=== PATIENT | female | born 1980 | race Caucasian/White ===

== ENCOUNTER 2019-07-10 19:00 | Emergency (ER) | payer OTHER, SELFPAY ==
[2019-07-10 19:16] VITALS: BP 192/111; PULSE 115; RESP 18; TEMP 36.8; O2SAT 96; BMI 37.4
[2019-07-10 19:29] LABS: Basophils # 0.1 10^3/uL (0.0-0.1); Basophils % 0.4 %; Eosinophils # 0.1 10^3/uL (0.0-0.8); Eosinophils % 0.8 %; Hematocrit 40.6 % (37.0-47.0); Hemoglobin 13.3 g/dL (11.5-15.3); Lymphocytes # 2.1 10^3/uL (0.8-4.8); Lymphocytes % 12.7 %; Mean Corpuscular HGB Conc 32.8 g/dL (30.0-36.0); Mean Corpuscular Hemoglobin 27.6 pg (28.0-34.0); Mean Corpuscular Volume 84.2 fL (81-99); Mean Platelet Volume 8.4 fL (7.4-10.4); Monocytes # 0.7 10^3/uL (0.2-0.9); Monocytes % 4.1 %; Neutrophils # 13.1 10^3/uL (1.8-7.7); Neutrophils % 81.4 %; Nucleated Red Blood Cells % 0 %; Platelet Count 304 10^3/cmm (130-400); Red Blood Count 4.82 10^6/uL (4.1-5.3); Red Cell Distribution Width 13.2 % (12.1-15.1); White Blood Count 16.1 10^3/uL (4.0-10.0)
[2019-07-10 19:42] LABS: Alanine Aminotransferase 16 U/L (0-33); Albumin Level 4.4 g/dL (3.5-5.2); Alkaline Phosphatase 105 IU/L (35-105); Anion Gap 21.2 (5-19); Aspartate Amino Transferase 18 U/L (0-32); Blood Urea Nitrogen 11 mg/dL (6-20); Carbon Dioxide 24 mmol/L (22-29); Chloride 95 mmol/L (98-107); Globulin 3.6 g/dL (1.3-4.6); Glomerular Filtration Rate 62.7 mL/min (90-130); Glucose 249 mg/dL (74-109); Potassium 4.2 mmol/L (3.5-5.1); Sodium 136 mmol/L (136-145); Total Bilirubin 0.3 mg/dL (0.15-1.2)
--- NOTE | 2019-07-10 19:58 | ED_ITS ---
HPI - Female Genitourinary General: Chief complaint: Urogenital-Female Stated complaint: kidney pain Time Seen by Provider: 07/10/19 19:50 History of Present Illness: HPI Narrative: Patient complains about right-sided flank pain last couple days has symptoms consistent with an urinary tract infection. Has had a fever nausea vomiting today. Has been taking cranberry pills. MD elicited complaint: dysuria and UTI Pertinent past history: recurrent UTIs Onset (ago): day(s) (2) Female Urogenital Radiation: R Flank Severity scale (1-10): 8 Urinary symptoms: Foul Smelling Urine Exacerbating factors: none Associated symptoms: Reports fevers/chills and nausea; Deny headache(s) Date of Last Menstrual Period: 06/17/19 Review of Systems Const: Denies: fever, chills or body aches Eyes: Denies: change in vision or blurry vision ENMT: Denies: throat pain or nasal congestion Card: Denies: chest pain or shortness of breath on exertion Resp: Denies: shortness of breath, productive cough or non-productive cough GI: Reports: nausea and vomiting : Reports: urinary frequency and urinary urgency Musc: Denies: extremity pain Skin/Breast: Denies: rash Neuro: Denies: headache Psych: Denies: anxiety or depression Beni/Lymph: Denies: easy bruising PFSH ED PFSH: Statuses (acute, chronic, etc) shown below reflect problem list status as previously entered and may not be historically accurate Medical History (Updated 07/10/19 @ 22:06 by FRANCIS Browne) Diabetes mellitus without complication, without long-term current use of insulin (Acute) Gastroesophageal reflux (Acute) Menstrual migraine (Acute) Obesity (Acute) Polycystic ovarian syndrome (Acute) Surgical History (Updated 07/10/19 @ 21:31 by Bay Cartwright MD) History of cholecystectomy (Acute ~03/1999) Laparoscopic. Performed at [facility] in [place], [place] History of dilation and curettage (Acute 12/25/15) Missed at 11-6/7 weeks gestation. D&C with suction performed. Performed by Dr. Bay Cartwright at [facility] in [place], [place]. History of dilation and curettage (Acute 11/26/16) D&C with suction. Miscarriage. Performed by Dr. Bay Cartwright at [facility] in [place], [place]. Hx of dilation and curettage (Acute ~03/24/19) Treatment of Missed . Performed by Dr. Bay Cartwright at [facility] in [place], [place]. Family History (Updated 07/10/19 @ 21:34 by Bay Cartwright MD) Mother Hypertension Grandmother Heart disease Maternal Diabetes Maternal Family/Other Breast cancer Maternal great aunt Diabetes Maternal great-grandmother Family/Other No problems noted. Social History Smoking and tobacco status: never smoked Alcohol intake: never Additional social history: Well balanced diet Female Reproductive History: Date of last menstrual period: 06/17/19 Physical Exam Const: COMMON NORMALS: no apparent distress, average body habitus and oriented x3 HENMT: COMMON NORMALS: normocephalic HEAD & SCALP: normal to inspection and normocephalic FACE & SINUS: normal facial exam Eye: COMMON NORMALS: conjunctivae normal GENERAL EYE: normal appearance of both eyes CONJUNCTIVA: Yes conjunctivae normal Neck/C-Spine: COMMON NORMALS: no JVD Chest: COMMONS NORMALS: inspection of chest normal Resp: COMMON NORMALS: normal respiratory effort and clear to auscultation bilaterally AUSCULTATION: clear to auscultation bilaterally Cardio: COMMON NORMALS: no JVD, regular rate and regular rhythm RATE: regular rate RHYTHM: regular rhythm GI: COMMON NORMALS: normal to inspection, nondistended, normoactive bowel sounds : BLADDER/KIDNEY EXAM: Yes CVA tenderness Back/Pelvis: GENERAL BACK: Yes CVA tenderness CVA tenderness: right Extremity: COMMON NORMALS: normal to inspection and full ROM Neuro: COMMON NORMALS: oriented x3 Course Vital Signs: Vital signs: Vital Signs Temperature 98.2 F 07/10/19 19:16 Pulse Rate 115 H 07/10/19 19:16 Respiratory Rate 18 07/10/19 19:16 Blood Pressure 192/111 07/10/19 19:16 Pulse Oximetry 96 07/10/19 19:16 MDM - Female MDM Narrative: Medical decision making narrative: Patient chooses to go home. Is able to keep fluids down presently. Is aware that if it gets worse or she not able keep fluids down that she is to return here Lab Data: Labs: Lab Results 07/10/19 07/10/19 07/10/19 Range/Units 19:25 19:25 21:32 WBC 16.1 H (4.0-10.0) 10^3/ uL RBC 4.82 (4.1-5.3) 10^6/u L Hgb 13.3 (11.5-15.3) g/dL Hct 40.6 (37.0-47.0) % MCV 84.2 (81-99) fL MCH 27.6 L (28.0-34.0) pg MCHC 32.8 (30.0-36.0) g/dL RDW 13.2 (12.1-15.1) % Plt Count 304 (130-400) 10^3/c mm MPV 8.4 (7.4-10.4) fL Neut % (Auto) 81.4 % Lymph % (Auto) 12.7 % [place]wood % (Auto) 4.1 % Eos % (Auto) 0.8 % Baso % (Auto) 0.4 % Neut # (Auto) 13.1 H (1.8-7.7) 10^3/u L Lymph # (Auto) 2.1 (0.8-4.8) 10^3/u L [place]wood # (Auto) 0.7 (0.2-0.9) 10^3/u L Eos # (Auto) 0.1 (0.0-0.8) 10^3/u L Baso # (Auto) 0.1 (0.0-0.1) 10^3/u L Nucleated RBC % (a uto) 0 % Nucleated RBCs # 0.0 /100WBC Sodium 136 (136-145) mmol/L Potassium 4.2 (3.5-5.1) mmol/L Chloride 95 L (98-107) mmol/L Carbon Dioxide 24 (22-29) mmol/L Anion Gap 21.2 H (5-19) BUN 11 (6-20) mg/dL Creatinine 1.0 H (0.5-0.9) mg/dL GFR Calculation 62.7 L (90-130) mL/min Glucose 249 H (74-109) mg/dL Calcium 10.0 (8.5-10.5) mg/dL Total Bilirubin 0.3 (0.15-1.2) mg/dL AST 18 (0-32) U/L ALT 16 (0-33) U/L Alkaline Phosphata se 105 (35-105) IU/L Total Protein 8.0 (6.6-8.7) g/dL Albumin 4.4 (3.5-5.2) g/dL Globulin 3.6 (1.3-4.6) g/dL HCG, Qual Negative (Negative) Urine Color (Yellow) Urine Appearance (CLEAR) Urine pH (5-7) Ur Specific Gravit y (1.005-1.030) Urine Protein (Negative) Urine Glucose (UA) (Normal) Urine Ketones (Negative) Urine Occult Blood (Negative) Urine Nitrate (Negative) Urine Bilirubin (NEGATIVE) Urine Urobilinogen (Negative) mg/dL Ur Leukocyte Cheryl ase (Negative) Urine RBC (0-2) /hpf Urine WBC (0-5) /hpf Ur Squamous Epith Cells (0-5) Urine Bacteria (NONE) Urine Mucus 07/10/19 Range/Units 21:32 WBC (4.0-10.0) 10^3/ uL RBC (4.1-5.3) 10^6/u L Hgb (11.5-15.3) g/dL Hct (37.0-47.0) % MCV (81-99) fL MCH (28.0-34.0) pg MCHC (30.0-36.0) g/dL RDW (12.1-15.1) % Plt Count (130-400) 10^3/c mm MPV (7.4-10.4) fL Neut % (Auto) % Lymph % (Auto) % Haywood % (Auto) % Eos % (Auto) % Baso % (Auto) % Neut # (Auto) (1.8-7.7) 10^3/u L Lymph # (Auto) (0.8-4.8) 10^3/u L Haywood # (Auto) (0.2-0.9) 10^3/u L Eos # (Auto) (0.0-0.8) 10^3/u L Baso # (Auto) (0.0-0.1) 10^3/u L Nucleated RBC % (a uto) % Nucleated RBCs # /100WBC Sodium (136-145) mmol/L Potassium (3.5-5.1) mmol/L Chloride (98-107) mmol/L Carbon Dioxide (22-29) mmol/L Anion Gap (5-19) BUN (6-20) mg/dL Creatinine (0.5-0.9) mg/dL GFR Calculation (90-130) mL/min Glucose (74-109) mg/dL Calcium (8.5-10.5) mg/dL Total Bilirubin (0.15-1.2) mg/dL AST (0-32) U/L ALT (0-33) U/L Alkaline Phosphata se (35-105) IU/L Total Protein (6.6-8.7) g/dL Albumin (3.5-5.2) g/dL Globulin (1.3-4.6) g/dL HCG, Qual (Negative) Urine Color [place] (Yellow) Urine Appearance Cloudy (CLEAR) Urine pH 5 (5-7) Ur Specific Gravit y 1.025 (1.005-1.030) Urine Protein 3+ H (Negative) Urine Glucose (UA) Norm (Normal) Urine Ketones 1+ H (Negative) Urine Occult Blood 3+ H (Negative) Urine Nitrate Positive H (Negative) Urine Bilirubin 2+ H (NEGATIVE) Urine Urobilinogen 4 H (Negative) mg/dL Ur Leukocyte Cheryl ase Trace H (Negative) Urine RBC 80-100 H (0-2) /hpf Urine WBC >100 H (0-5) /hpf Ur Squamous Epith Cells 5-10 H (0-5) Urine Bacteria 4+ H (NONE) Urine Mucus 2+ Discharge Plan Discharge Patient Disposition: Home, Self-Care Clinical Impression: Pyelonephritis Condition: Stable Prescriptions: New Levaquin 500 mg tablet 500 mg PO DAILY 7 Days RF: 0 Zofran 4 mg tablet 4 mg PO TID PRN (Reason: nausea and vomiting) 4 Days Qty: 14 RF: 0 No Action bupropion HCl [Wellbutrin SR] 150 mg tablet sustained-release 12 hr 150 mg PO BID RF: 0 hydroxyzine HCl 50 mg tablet 50 mg PO TID RF: 0 norgestimate-ethinyl estradiol [Sprintec (28)] 0.25-35 mg-mcg tablet 1 tab PO QDAY Qty: 84 RF: 4 metformin 1,000 mg tablet 1,000 mg PO BID RF: 0 ranitidine HCl 150 mg capsule 150 mg PO BID PRNRF: 0 glipizide 10 mg tablet 20 mg PO BID RF: 0 Victoza 2-Tulio 0.6 mg/0.1 mL (18 mg/3 mL) pen injector 1.2 mg SUBCUT Q24H RF: 0 Discharge Orders: Discharge Order (Routine); Ordered 07/10/19 Ordered By: Anirudh Raymond Referrals: Vivienne Araujo FNP [Family Provider] - Asim Cosme APN [Primary Care Provider] - Discharge Diet: Usual diet Discharge Activity: Increase activity as tolerated Patient Instructions: Acute Pyelonephritis (ED) Activity Restrictions/Additional Instructions: Follow-up with medical provider as directed. Take medications as prescribed. Return to the ER or your medical provider if condition worsens. Please read and understand discharge instructions. If any questions ask please. Drink plenty of fluids. If condition worsens return here follow-up with FRANCIS Huffman Coding Level of Care Code ED Scrubber Operator for Tere Fwd Exam Problem Focused
[2019-07-10] MEDS: lactated ringers 1,000 ML 999 ML IV (21:10)
[2019-07-10] MEDS: ondansetron 2 mg/ML SDV 2 mL 8 MG IVP (21:11)
[2019-07-10] MEDS: ketorolac 30 mg/mL INJ IVP (21:11)
[2019-07-10] MEDS: levoFLOXacin 500 mg Tablet PO (21:22)
[2019-07-10 21:53] LABS: Add Urine Culture? Yes; Bacteria Urine 4+; Bilirubin Urine 2+ (NEGATIVE); Blood Urine 3+ (Negative); Glucose Urine UA Norm (Normal); HCG Qualitative Urine. Negative (Negative); Ketones Urine 1+ (Negative); Leukocyte Esterase Urine Trace (Negative); Mucus Urine 2+; Nitrate Urine Positive (Negative); Protein Urine 3+ (Negative); RBC Urine 80-100 /hpf (0-2); Specific Gravity, Urine 1.025 (1.005-1.030); Urine Appearance Cloudy (CLEAR); Urine Color Orange (Yellow); Urobilinogen Urine 4 mg/dL (Negative); WBC Urine >100 /hpf (0-5); pH Urine 5 (5-7)
[2019-07-10] MEDS: ondansetron 4 MG Tablet PO (22:35)
[2019-07-10 22:44] VITALS: BP 123/71; PULSE 76; RESP 16; TEMP 36.9; O2SAT 97
== END 2019-07-10 22:45 | disposition home or self-care (01) ==
PROVIDERS: Emergency Medicine; Emergency Provider Nurse Practitioner Family; Family Provider Registered Nurse; PCP Nurse Practitioner Family
DX: N12 Tubulo-interstitial nephritis, not specified as acute or chronic (principal); Z79.84 Long term (current) use of oral hypoglycemic drugs; E11.9 Type 2 diabetes mellitus without complications; K21.9 Gastro-esophageal reflux disease without esophagitis
CPT/HCPCS: 36415; 80053; 81001; 81025; 85025; 87077; 87086; 87186; 96374; 99281; J1885; J2405; Q0162

== ENCOUNTER → 2019-09-01 14:30 | Outpatient (BNVA) | payer OTHER, SELFPAY | PROVIDERS: Family Provider Registered Nurse; PCP Nurse Practitioner Family; Visit Provider Nurse Practitioner Family | DX: J02.0 Streptococcal pharyngitis (principal); B37.9 Candidiasis, unspecified | CPT/HCPCS: 87880 ==

== ENCOUNTER → 2019-09-05 08:50 | Outpatient (BNVA) | payer OTHER, SELFPAY | PROVIDERS: Family Provider Registered Nurse; PCP Nurse Practitioner Family; Visit Provider Obstetrics & Gynecology | DX: Z12.4 Encounter for screening for malignant neoplasm of cervix (principal) | CPT/HCPCS: 88175 ==

== ENCOUNTER → 2019-09-27 08:40 | Outpatient (BNVA) | payer OTHER, SELFPAY | PROVIDERS: Family Provider Registered Nurse; PCP Nurse Practitioner Family; Visit Provider Nurse Practitioner Family | DX: J02.9 Acute pharyngitis, unspecified (principal) | CPT/HCPCS: 87071; 87880 ==

== ENCOUNTER → 2020-04-12 09:13 | Outpatient (BNVA) | payer OTHER, SELFPAY | PROVIDERS: Family Provider Registered Nurse; PCP Nurse Practitioner Family; Visit Provider Registered Nurse | DX: Z11.59 Encounter for screening for other viral diseases (principal); J06.9 Acute upper respiratory infection, unspecified | CPT/HCPCS: 87635 ==

== ENCOUNTER → 2020-06-18 14:30 | Outpatient (BNVA) | payer OTHER, SELFPAY | PROVIDERS: Family Provider Registered Nurse; PCP Nurse Practitioner Family; Visit Provider Obstetrics & Gynecology | DX: O26.21 Pregnancy care for patient with recurrent pregnancy loss, first trimester; O24.111 Pre-existing type 2 diabetes mellitus, in pregnancy, first trimester | CPT/HCPCS: 81025; 83036; 84315; 84702; 86850; 86900 ==

== ENCOUNTER → 2020-06-21 16:14 | Outpatient (BNVA) | payer OTHER, MEDICAID, SELFPAY | PROVIDERS: Family Provider Registered Nurse; PCP Nurse Practitioner Family; Visit Provider Obstetrics & Gynecology | DX: O26.21 Pregnancy care for patient with recurrent pregnancy loss, first trimester (principal); O24.111 Pre-existing type 2 diabetes mellitus, in pregnancy, first trimester | CPT/HCPCS: 84315; 84702 ==

== ENCOUNTER → 2020-06-25 09:27 | Outpatient (BNVA) | payer OTHER, MEDICAID, SELFPAY | PROVIDERS: Family Provider Registered Nurse; PCP Nurse Practitioner Family; Visit Provider Obstetrics & Gynecology | DX: O26.21 Pregnancy care for patient with recurrent pregnancy loss, first trimester (principal) | CPT/HCPCS: 84315; 84702 ==

== ENCOUNTER → 2020-07-20 07:56 | Outpatient (BNVA) | payer OTHER, MEDICAID, SELFPAY | PROVIDERS: Family Provider Registered Nurse; PCP Nurse Practitioner Family; Visit Provider Obstetrics & Gynecology | DX: Z20.822 Contact with and (suspected) exposure to COVID-19 (principal); O24.111 Pre-existing type 2 diabetes mellitus, in pregnancy, first trimester; F41.8 Other specified anxiety disorders | CPT/HCPCS: 84315; 87635 ==

== ENCOUNTER 2020-07-23 11:07 | Day surgery (SDC) | payer OTHER, MEDICAID, SELFPAY ==
[2020-07-20 10:39] VITALS: BMI 39.1
--- NOTE | 2020-07-20 10:51 | P.ANESASSM_ITS ---
Pre-Anesthetic Assessment Pre-Anesthetic Assessment: Height/Weight: Height 1.7 m Weight 113.398 kg Preop Diagnosis: blighted ovum Proposed Procedure: Operation Date: 07/23/20 12:30 Proposed Procedures p Dilation And Curettage (D&C) 26829 O02.0(Not Applicable) - Bay Cartwright MD Familial anesthetic complications: PONV Social: Social History: No alcohol and No tobacco Exam: Pre-Anes Outpt Exam: alert, oriented x 3, clear to auscultation bilaterally and regular rate & rhythm Airway: Cervical ROM: WNL MP: 1 Dentition: Full GI: GI: GERD Metabolic: Metabolic: DM and Morbid obesity Neuropsych: Neuropsych: Anxiety Anesthetic Plan: ASA status: 2 Anesthesia: General Risk of > 500 ml blood loss (7ml/kg in children): No PFSH Anesthesia PFSH: Medical History (Updated 07/20/20 @ 09:41 by Bay Cartwright MD) Diabetes mellitus without complication, without long-term current use of insulin Gastroesophageal reflux Menstrual migraine Obesity Polycystic ovarian syndrome Surgical History History of cholecystectomy (~03/1999) Laparoscopic. Performed at [facility] in [place], [place] History of dilation and curettage (12/25/15) Missed at 11-6/7 weeks gestation. D&C with suction performed. Performed by Dr. Bay Cartwright at [facility] in [place], [place]. History of dilation and curettage (11/26/16) D&C with suction. Miscarriage. Performed by Dr. Bay Cartwright at [facility] in [place], [place]. Hx of dilation and curettage (~03/24/19) Treatment of Missed . Performed by Dr. Bay Cartwright at [facility] in [place], [place]. Family History Mother Hypertension Grandmother Heart disease Maternal Diabetes Maternal Family/Other Breast cancer Maternal great aunt Diabetes Maternal great-grandmother Family/Other No problems noted. Social History (Updated 07/14/20 @ 14:06 by Bay Cartwright MD) Smoking and tobacco status: never smoked Alcohol intake: never Female Reproductive History: Date of last menstrual period: 06/17/19 Data Anesthesia Cardiac Studies: No Data to Display
[2020-07-23] MEDS: sodium chloride 0.9% 1,000 ML 30 ML IV (11:45)
[2020-07-23 12:00] VITALS: BP 154/95; PULSE 96; RESP 18; TEMP 36.5; O2SAT 99
[2020-07-23 12:06] LABS: Glucose Point of Care 91 mg/dL (70-110)
--- NOTE | 2020-07-23 12:19 | P.ANESUD_ITS ---
Pre-Anesthetic Update Pre-Anesthetic Assessment: Date of Surgery/Procedure: 07/23/20 Preop Stephany gnosis: blighted ovum Proposed Procedure: Operation Date: 07/23/20 12:30 Proposed Procedures p Dilation And Curettage (D&C) 73918 O02.0(Not Applicable) - Bay Cartwright MD Any changes to Pre-Anesthetic Assessment?: No Labs Last 48hrs: Laboratory Results - last 48 hr 07/23/20 12:01 POC Glucose 91 Exam: Pre-Anes Outpt Exam: alert, oriented x 3, clear to auscultation bilaterally and regular rate & rhythm Cardiac Studies: No Data to Display
--- NOTE | 2020-07-23 12:22 | P.HPUD_ITS ---
Surgery/Procedure H&P Update DATE OF PROCEDURE: July 23, 2020 DATE H&P PERFORMED: 07/20/20 H&P UPDATE INFORMATION: I have reviewed H&P completed within last 30 days, I have examined patient prior to procedure, No changes to prior documentation and H&P is in [facility] EMR on date indicated PREOP DIAGNOSIS: blighted ovum PLANNED PROCEDURE: Operation Date: 07/23/20 12:30 Proposed Procedures p Dilation And Curettage (D&C) 49472 O02.0(Not Applicable) - Bay Cartwright MD
[2020-07-23] MEDS: scopolamine 1.5 Patch 1 PATCH TRANSDERMA (12:24)
--- NOTE | 2020-07-23 12:49 | PM.OP ---
Operative Report Date of procedure: July 23, 2020 Pre-op Diagnosis: blighted ovum at 8 weeks Post-op Diagnosis: Blighted Ovum at 8 weeks Procedure Done: Dilation and curettage with suction for treatment of blighted ovum, Paracervical block Pathology: Products of conception Surgeon: Bay Cartwright [employer] Consultant: None Anesthesia: MAC and Other (Paracervical block) Estimated blood loss (mL): 5 IV fluids (mL): 300 Complications: None Findings: Closed cervix. Difficult to palpate uterus due to body habitus Brief History: Patient is a 39-year-old female, 5, Para 0-0-4-0 with an LMP of 05/09/2020 and an EDC of 03/01/2021 based on a 5-week ultrasound, which places her at 8-3/7 weeks gestation. She has been followed since approximately 4 weeks gestation due to type 2 diabetes. She had had an ultrasound on 07/05/2020 which had shown a very small pole at 5-6/7 weeks gestation with a heart rate of 80 bpm. Due to the early gestational age, follow-up ultrasound was performed on 07/20/2020. Gestational sac had enlarged as expected, but pole was no longer able to be visualized. Based upon this she was diagnosed with a blighted ovum. Treatment options were discussed with her and she wished to proceed to a dilation and curettage with suction. Procedure: Patient was taken to the operating room where IV sedation was started. She was prepped and draped in the usual sterile fashion in the dorsal supine position with legs in Cirilo style stirrups. Sequential compression boots were placed prior to starting the case. Patient had voided just before coming to the operating room. Exam under anesthesia was performed. Cervix was noted to be closed. Uterus was difficult to palpate due to body habitus. Weighted speculum was placed in the vagina and the cervix was grasped with a single-tooth tenaculum. A paracervical block was performed using 12 mL of 2% lidocaine with epinephrine. The cervix was serially dilated until a size 8 suction curette could be passed. Suction curettage was performed until no further tissue was obtained. Sharp curettage was performed until there was a gritty texture throughout the endometrial cavity. Suction curettage was repeated until no further tissue was obtained. Tenaculum was removed and there was minimal bleeding from the tenaculum site. Patient tolerated the procedure well. Sponge and needle counts were correct. DRAINS: None POSTOPERATIVE STATUS: The patient was transferred to the recovery room in satisfactory condition. DISPOSITION: Discharge to home when criteria was met. FOLLOWUP APPOINTMENT: Followup appointment is scheduled in my office on 08/06/2020. MEDICATIONS: She was to resume her usual home medications. May use [id number] ibuprofen as needed for pain. Associated Problem List Diagnoses (1) Blighted ovum:
[2020-07-23 13:22] VITALS: BP 162/87; PULSE 98; RESP 18; O2SAT 100
[2020-07-23 14:48] VITALS: BP 158/82; PULSE 102; RESP 18; TEMP 36.8; O2SAT 99
--- NOTE | 2020-07-23 16:22 | ANE.PACU2 ---
Inpatient post-anesthesia follow up: Airway intact: Yes Vital signs: Temperature 98.2 F Pulse Rate 102 Respiratory Rate 18 Blood Pressure 158/82 Pulse Oximetry 99 Oxygen Delivery Me thod Room Air Oxygen Flow Rate Fraction of Inspir ed Oxygen Hydration adequate: Yes Nausea and vomiting: No Pain level: 1 Mental status: Baseline
== END 2020-07-23 13:39 | disposition home or self-care (01) ==
PROVIDERS: Family Provider Registered Nurse; PCP Nurse Practitioner Family; Visit Provider Obstetrics & Gynecology
PROC: (CPT 58120; principal; 2020-07-23 12:30)
DX: O02.0 Blighted ovum and nonhydatidiform mole (principal); K21.9 Gastro-esophageal reflux disease without esophagitis; E11.9 Type 2 diabetes mellitus without complications; E66.01 Morbid (severe) obesity due to excess calories; Z68.39 Body mass index [BMI] 39.0-39.9, adult; F41.9 Anxiety disorder, unspecified; E28.2 Polycystic ovarian syndrome; Z79.84 Long term (current) use of oral hypoglycemic drugs
CPT/HCPCS: 59820; 12345; 36415; 36416; 82962; 86850; 86900; 88305; 90384; J2704; J3010; J7030

== ENCOUNTER → 2020-09-26 12:20 | Outpatient (BNVA) | payer OTHER, MEDICAID, SELFPAY | PROVIDERS: Family Provider Registered Nurse; PCP Nurse Practitioner Family; Visit Provider Obstetrics & Gynecology | DX: Z30.2 Encounter for sterilization (principal) | CPT/HCPCS: 87635 ==

== ENCOUNTER 2020-10-02 07:21 | Day surgery (SDC) | payer OTHER, MEDICAID, SELFPAY ==
[2020-10-01 08:22] VITALS: BMI 34.4
--- NOTE | 2020-10-01 09:29 | P.ANESASSM_ITS ---
Pre-Anesthetic Assessment Pre-Anesthetic Assessment: Height/Weight: Height 1.7 m Weight 99.79 kg Preop Diagnosis: blighted ovum at 8 weeks Proposed Procedure: Operation Date: 10/02/20 09:00 Proposed Procedures p Lap Fulg,Removal of Tubes Sterilization 37236 Z30.2(Not Applicable) - Bay Cartwright MD Was Beta Henry taken within 24 hours: N/A Was Clonidine taken within 24 hours: N/A Social: Social History: No alcohol and No tobacco Exam: Pre-Anes Outpt Exam: alert, oriented x 3, clear to auscultation bilaterally and regular rate & rhythm Airway: Submandibular: WNL Cervical ROM: WNL MP: 2 Dentition: Full GI: GI: GERD Metabolic: Metabolic: DM and Morbid obesity Neuropsych: Neuropsych: Anxiety and Depression Anesthetic Plan: ASA status: 2 Anesthesia: General Risk of > 500 ml blood loss (7ml/kg in children): No PFSH Anesthesia PFSH: Medical History Diabetes mellitus without complication, without long-term current use of insulin Gastroesophageal reflux Menstrual migraine Obesity Polycystic ovarian syndrome Surgical History History of cholecystectomy (~03/1999) Laparoscopic. Performed at [facility] in [place], [place] History of dilation and curettage (12/25/15) Treatment of missed . D&C with suction performed. Performed by Dr. Cartwright at [facility] in [place], [place]. History of dilation and curettage (11/26/16) Treatment of miscarriage. Performed by Dr. Cartwright at [facility] in [place], [place]. Hx of dilation and curettage (03/24/19) Treatment of Missed . Performed by Dr. Cartwright at [facility] in [place], [place]. Hx of dilation and curettage (07/23/20) Treatment of blighted ovum. Performed by Dr. Cartwright at [facility] in [place], [place] Family History Mother Hypertension Grandmother Heart disease Maternal Diabetes Maternal Family/Other Breast cancer Maternal great aunt Diabetes Maternal great-grandmother Family/Other No problems noted. Social History Smoking and tobacco status: never smoked Alcohol intake: never Substance/Drug Use: never Female Reproductive History: Date of last menstrual period: 09/24/20 Data Anesthesia Cardiac Studies: No Data to Display
[2020-10-02] VITALS (10 sets, daily range): BP systolic 138–157; BP diastolic 89–100; PULSE 90–106; RESP 15–20; TEMP 36.2–36.9; O2SAT 94–100
[2020-10-02 07:47] LABS: OR HCG Qualitative Urine Negative (Negative)
[2020-10-02] MEDS: acetaminophen 1,000 MG/100 ML PIGGYBACK 400 MG IV (07:55)
[2020-10-02 07:56] LABS: Glucose Point of Care 87 mg/dL (70-110)
--- NOTE | 2020-10-02 07:56 | P.HPUD_ITS ---
Surgery/Procedure H&P Update DATE OF PROCEDURE: October 02, 2020 DATE H&P PERFORMED: 09/28/20 H&P UPDATE INFORMATION: I have reviewed H&P completed within last 30 days, I have examined patient prior to procedure, No changes to prior documentation and H&P is in [facility] EMR on date indicated PREOP DIAGNOSIS: Undesired fertility PLANNED PROCEDURE: Operation Date: 10/02/20 09:00 Proposed Procedures p Lap Fulg,Removal of Tubes Sterilization 30503 Z30.2(Not Applicable) - Bay Cartwright MD
[2020-10-02] MEDS: ketorolac 30 mg/mL INJ IVP (08:01)
[2020-10-02] MEDS: gabapentin 300 mg Capsule PO (08:01)
[2020-10-02] MEDS: sodium chloride 0.9% 1,000 ML 30 ML IV (08:01)
[2020-10-02] MEDS: scopolamine 1.5 Patch 1 PATCH TRANSDERMA (08:05)
[2020-10-02] MEDS: midazolam 1 mg/mL INJ 2 mL 2 MG IVP (08:06)
--- NOTE | 2020-10-02 09:37 | PM.OP ---
Operative Report Date of procedure: October 02, 2020 Pre-op Diagnosis: Undesired fertility Post-op Diagnosis: Undesired fertility Procedure Done: Laparoscopic bilateral tubal fulguration with complete salpingectomy Specimens removed/disposition: Right and left fallopian tubes Surgeon: Bay Cartwright [employer] Production Manager: None Anesthesia: General Estimated blood loss (mL): 5 IV fluids (mL): 500 Complications: None Findings: Anterior, fundal subserosal uterine fibroid, approximately 3 cm diameter. First-degree uterine prolapse noted. Normal-appearing appendix. Brief History: Patient is a 39-year-old female, 5, para 0-0-5-0 with an LMP of 09/24/2020 who is currently on for control. She had presented to the office requesting sterilization. She is adamant that she does not want any further pregnancies. She was requesting that her tubes to be completely removed. This morning, sterilization was reviewed with her and she is still adamant that she wishes to proceed with sterilization. Risks and failure rates including risk for ectopic were reviewed. Questions were answered. Procedure: Patient was taken to the operating room were general anesthesia was obtained. She was prepped and draped in the usual sterile fashion in the dorsal supine position with legs in Cirilo style stirrups. Sequential compression boots were placed prior to starting the case. Catheter was inserted and bladder was drained. Exam under anesthesia was performed and patient was found to have first-degree uterine prolapse. Weighted speculum was placed in the vagina and the cervix was grasped with a single-tooth tenaculum. A ZUMI was placed. The infraumbilical region was injected with 0.5% Marcaine plain. Skin incision was made with the knife in the lower edge of the navel and a size 5 trocar and sheath were inserted under direct visualization using an Optiview type technique. Trocar was removed and replaced with a laparoscope confirming intra-abdominal placement. The abdomen was inflated with carbon dioxide. The anterior abdominal wall was inspected and noted to be free of adhesions except for small area of omental adhesion in the upper abdomen. In the left and right lower quadrants lateral to the inferior epigastric vessels, the skin was injected with 0.5% Marcaine plain. Skin incisions were made with a knife and a 5 mm trocar and sheath were inserted under direct visualization at each site. The pelvis was thoroughly inspected. She had an approximately 3 cm diameter subserosal uterine fibroid at the anterior fundal area. Normal-appearing tubes, ovaries, anterior and posterior cul-de-sac were noted. Normal-appearing appendix noted. Using the Voyant sealing device, starting on the left side at the fimbriated end of the tube, the mesosalpinx was sealed and cut along the length of the tube. At the proximal end of the tube, the tube itself was sealed and cut. The fallopian tube was brought out through the port. Using the Voyant sealing device, starting on the right side at the fimbriated end of the tube, the mesosalpinx was sealed and cut along the length of the tube. At the proximal end of the tube, the tube itself was sealed and cut. The fallopian tube was brought out through the port. The dissection area was thoroughly inspected and noted to be hemostatic. The abdomen was deflated and the ports removed. The 5 mm sites were closed with single stitches of 4-0 Vicryl suture. Dermabond was applied to the skin. The ZUMI was removed and there was minimal bleeding from the tenaculum site. Patient tolerated the procedure well. Sponge, needle and instrument counts were correct. DRAINS: None POSTOPERATIVE STATUS: The patient was transferred to the recovery room in satisfactory condition. DISPOSITION: Discharge to home when criteria was met. FOLLOWUP APPOINTMENT: Followup appointment is scheduled in my office on 10/18/2020. MEDICATIONS: Patient received prescriptions for: Franklin 5/325, 1 to 2 tablets every 6 hours as needed for pain, #10, 0 refills Ibuprofen 800 mg, 1 tablet 3 times a day as needed for pain, #30, 0 refills She may resume her usual home medications.
--- NOTE | 2020-10-02 09:48 | SUR.PHASEI ---
0945 PT SLEEPY WITH UNLABORED RESP , PT ENCOURAGED TO DEEP BREATHE, SATS DOWN TO 91% PT PLACED ON 8L MASK SATS QUICKLY UP TO 100% VSS IV PATENT ABD IS SOFT WITH 3 SITES WITH EXOFIN
[2020-10-02] MEDS: ondansetron 2 mg/ML SDV 2 mL 4 MG IVP (09:58)
--- NOTE | 2020-10-02 10:10 | SUR.PHASEI ---
PT STATES NAUSEA IS BETTER, PT OK WITH TRYING SIPS OF SPRITE, VSS HANDOFF AT BEDSIDE
--- NOTE | 2020-10-02 17:14 | ANE.PACU2 ---
Inpatient post-anesthesia follow up: Airway intact: Yes Vital signs: Temperature 97.1 F Pulse Rate 90 Respiratory Rate 18 Blood Pressure 148/89 Pulse Oximetry 98 Oxygen Delivery Me thod Room Air Oxygen Flow Rate 98 Fraction of Inspir ed Oxygen Hydration adequate: Yes Nausea and vomiting: No Pain level: 2 Mental status: Baseline
== END 2020-10-02 11:09 | disposition home or self-care (01) ==
PROVIDERS: PCP Nurse Practitioner Family; Visit Provider Obstetrics & Gynecology
PROC: (CPT 58661; principal; 2020-10-02 08:50)
DX: Z30.2 Encounter for sterilization (principal); K21.9 Gastro-esophageal reflux disease without esophagitis; E11.9 Type 2 diabetes mellitus without complications; E66.01 Morbid (severe) obesity due to excess calories; Z68.34 Body mass index [BMI] 34.0-34.9, adult; F41.9 Anxiety disorder, unspecified; F32.9 Major depressive disorder, single episode, unspecified; E28.2 Polycystic ovarian syndrome; Z82.49 Family history of ischemic heart disease and other diseases of the circulatory system; Z83.3 Family history of diabetes mellitus; Z79.84 Long term (current) use of oral hypoglycemic drugs
CPT/HCPCS: 58661; 36416; 81025; 82962; 84703; 88302; 96365; 96374; J1885; J2250; J2405; J2704; J3010; J3490; J7030

== ENCOUNTER → 2021-05-20 12:56 | Outpatient (BNVA) | payer OTHER, MEDICAID, SELFPAY | PROVIDERS: PCP Nurse Practitioner Family; Visit Provider Specialist | DX: G56.03 Carpal tunnel syndrome, bilateral upper limbs (principal) | CPT/HCPCS: 95910 ==

== ENCOUNTER → 2021-06-26 15:23 | Outpatient (BNVA) | payer OTHER, MEDICAID, SELFPAY | PROVIDERS: PCP Nurse Practitioner Family; Referring Provider Nurse Practitioner Family; Visit Provider Specialist | DX: G56.03 Carpal tunnel syndrome, bilateral upper limbs (principal) | CPT/HCPCS: 73110 ==

== ENCOUNTER 2021-06-26 16:20 | Outpatient (CLI) | payer OTHER, MEDICAID, SELFPAY | END 2021-06-26 16:21 | disposition home or self-care (01) | LOC: SPT 16:21 | PROVIDERS: PCP Nurse Practitioner Family; Visit Provider Specialist | DX: Z46.89 Encounter for fitting and adjustment of other specified devices (principal); G56.03 Carpal tunnel syndrome, bilateral upper limbs | CPT/HCPCS: 97760; L3908 ==

== ENCOUNTER → 2021-07-22 00:01 | Outpatient (BNVA) | payer OTHER, MEDICAID, SELFPAY | PROVIDERS: PCP Nurse Practitioner Family; Visit Provider Specialist | DX: G56.02 Carpal tunnel syndrome, left upper limb (principal); G56.01 Carpal tunnel syndrome, right upper limb; Z20.822 Contact with and (suspected) exposure to COVID-19 | CPT/HCPCS: 87635 ==

== ENCOUNTER 2021-07-26 05:51 | Day surgery (SDC) | payer OTHER, MEDICAID, SELFPAY ==
[2021-07-25 13:06] VITALS: BMI 35.5
[2021-07-26 06:22] VITALS: BP 142/85; PULSE 90; RESP 16; TEMP 36.3; O2SAT 100
[2021-07-26 06:34] LABS: Glucose Point of Care 103 mg/dL (70-110)
[2021-07-26] MEDS: sodium chloride 0.9% 1,000 ML 30 ML IV (06:46)
[2021-07-26] MEDS: CELEcoxib 200 mg Capsule 400 MG PO (06:47)
[2021-07-26] MEDS: acetaminophen 1,000 MG/100 ML PIGGYBACK 400 MG IV (06:47)
[2021-07-26] MEDS: scopolamine 1.5 Patch 1 PATCH TRANSDERMA (06:48)
--- NOTE | 2021-07-26 06:55 | P.HPUD_ITS ---
Surgery/Procedure H&P Update DATE OF PROCEDURE: July 26, 2021 DATE H&P PERFORMED: 06/26/21 H&P UPDATE INFORMATION: I have reviewed H&P completed within last 30 days, I have examined patient prior to procedure, No changes to prior documentation and H&P is in [facility] EMR on date indicated PREOP DIAGNOSIS: Left carpal tunnel syndrome PLANNED PROCEDURE: Operation Date: 07/26/21 07:00 Proposed Procedures p Carpal Tunnel Release 48647 G56.00(Left) - Sylwia Erickson MD Related Problem List Diagnoses (1) Carpal tunnel syndrome, left:
[2021-07-26 06:56] LABS: OR HCG Qualitative Urine Negative (Negative)
[2021-07-26] MEDS: clindamycin 600 MG/50 ML PREMIX 100 MG IV (06:59)
--- NOTE | 2021-07-26 07:01 | ANES.PREANE2 ---
Pre-Anesthetic Assessment Height/Weight: Height 1.7 m Weight 102.965 kg Temp Pulse Resp BP Pulse Ox 97.3 F L 90 16 142/85 100 07/26/21 06:22 07/26/21 06:22 07/26/21 06:22 07/26/21 06:22 07/26/21 06:22 Preop Diagnosis: Left carpal tunnel syndrome Operation Date: 07/26/21 07:00 Proposed Procedures p Carpal Tunnel Release 54159 G56.00(Left) - Sylwia Erickson MD Familial anesthetic complications: None Was Beta Henry taken within 24 hours: N/A Was Clonidine taken within 24 hours: N/A Last intake: Intake Last Liquid Date 07/25/21 Last Liquid Time 10:00 Last Solid Date 07/25/21 Last Solid Time 08:00 Social No alcohol and No tobacco Exam alert, oriented x 3, clear to auscultation bilaterally and regular rate & rhythm Airway Submandibular: within normal limits Cervical ROM: within normal limits Mallampati: Class II Dentition: full GI Gastroesophageal Reflux Disease Metabolic Diabetes Mellitus and Morbid Obesity Neuropsych Anxiety and Depression Anesthetic Plan ASA status: 2 Anesthesia: MAC and Regional (specify below) (Fariha akbar) Medications/Allergies Home Medications Medication Instructions Recorded Confirmed Last Taken Type metformin 1,000 mg tablet 1,000 mg PO BID 07/01/19 07/26/21 07/25/21 History alprazolam 0.5 mg tablet (Xanax) 0.5 - 1 mg PO TID PRN #20 tab 07/20/20 07/26/21 07/26/21 Rx liraglutide 0.6 mg/0.1 mL (18 mg/3 1.8 mg SUBCUT DAILY ml 08/06/20 07/26/21 07/25/21 History mL) subcutaneous pen injector (Victoza 2-Tulio) bupropion HCl 150 mg tablet,12 hr 150 mg PO BID 09/28/20 07/26/21 07/26/21 History sustained-release (Wellbutrin SR) ibuprofen 800 mg tablet 800 mg PO TID PRN #30 tab 10/02/20 07/26/21 Unknown Rx cock up splint-bilateral wrist #1 ea 06/26/21 06/26/21 Unknown Rx triamterene 37.5 1 tab PO DAILY 02/04/0507/26/21 07/25/21 History mg-hydrochlorothiazide 25 mg tablet (Maxzide-25mg) Allergies Allergy/AdvReac Type Severity Reaction Status Date / Time citalopram [From Celexa] Allergy Intermediate swelling Verified 07/26/21 06:11 all over cephalexin Allergy Vomiting Verified 07/26/21 06:11 hydrocodone Allergy nausea and Verified 07/26/21 06:11 vomiting latex Allergy Rash Verified 07/26/21 06:11 tramadol Allergy Nausea Verified 07/26/21 06:11 Current Medications Generic Name Dose Route Start Last Admin Trade Name Freq PRN Reason Stop Dose Admin Sodium Chloride 1,000 mls @ 30 mls/hr 07/26/21 06:15 07/26/21 06:46 Sodium Chloride 0.9% IV 07/27/21 06:14 30 mls/hr .Q24H SRINIVAS Administration PFSH Anesthesia Medical History Diabetes mellitus without complication, without long-term current use of insulin Gastroesophageal reflux Menstrual migraine Obesity Polycystic ovarian syndrome Surgical History History of cholecystectomy (~03/1999) Laparoscopic. Performed at [facility] in [place], [place] History of dilation and curettage (12/25/15) Treatment of missed . D&C with suction performed. Performed by Dr. Cartwright at [facility] in [place], [place]. History of dilation and curettage (11/26/16) Treatment of miscarriage. Performed by Dr. Cartwright at [facility] in [place], [place]. Hx of dilation and curettage (03/24/19) Treatment of Missed . Performed by Dr. Cartwright at [facility] in [place], [place]. Hx of dilation and curettage (07/23/20) Treatment of blighted ovum. Performed by Dr. Cartwright at [facility] in [place], [place] S/P tubal ligation (10/02/20) Laparoscopic complete salpingectomy. Performed by Dr. Cartwright at [facility] in [place], [place]. Family History Mother Hypertension Grandmother Heart disease Maternal Diabetes Maternal Family/Other Breast cancer Maternal great aunt Diabetes Maternal great-grandmother Family/Other No problems noted. 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
[2021-07-26 07:58] VITALS: BP 114/70; PULSE 81; RESP 16; TEMP 36.1; O2SAT 99
[2021-07-26 08:03] VITALS: BP 128/73; PULSE 79; RESP 16; O2SAT 99
[2021-07-26 08:09] VITALS: BP 147/82; PULSE 88; RESP 16; TEMP 36.1; O2SAT 95
[2021-07-26 08:13] VITALS: BP 132/85; PULSE 86; RESP 16; TEMP 36.2; O2SAT 95
--- NOTE | 2021-07-26 08:19 | PM.OP ---
Operative Report Date of procedure: July 26, 2021 Pre-op diagnosis: Left carpal tunnel syndrome Post-op diagnosis: Same Procedure done: Left carpal tunnel release Pathology: none sent Surgeon: Sylwia Erickson [facility] Coordinator: None Anesthesia: MAC (With Clifford block) Estimated blood loss (mL): 5 Tourniquet time (min): 39 (At 250 mmHg) IV fluids (mL): 500 Urine output (mL): 0 (No Garcia) Complications: None Findings: Significant compression across the carpal canal Condition: stable Disposition: PACU (Then return to same-day surgery for discharge home) Brief History: This 40-year-old woman presented with symptoms consistent with carpal tunnel syndrome. After discussion, she wished to proceed with carpal tunnel release. She was not responsive to conservative measures. The carpal tunnel syndrome was interfering with her activities of daily living. Risks and complications were discussed and consents were signed preoperatively. Questions were answered. Procedure: The patient was brought to the operating theater. The patient had a Fariha block with MAC. The tourniquet was elevated to 250 mmHg for a total tourniquet time of 39 minutes. The patient was also given clindamycin 600 mg preoperatively. The arm was then prepped and draped with DuraPrep in usual fashion with the arm draped free. A surgical pause was performed. At the time, the surgical pause, we confirmed the site and side of surgery. We also confirmed the patient's identity, appropriate and timely administration of preoperative antibiotics and preoperative surgical markings. An incision was then made along the thenar crease. The incision crossed the wrist joint in a curvilinear fashion. Dissection continued through skin and soft tissues using a scalpel. The palmaris longus was identified along with the transverse carpal ligament. Each of these was released carefully to avoid injury to the median nerve. We were able to dissect gently into the carpal canal which was noted to be quite tight with significant compression across the median nerve. The canal was subsequently palpated to assure there was no bony encroachment upon the canal. The canal was then palpated distally and proximally to assure that my small finger was passed easily without impingement. Finding this to be so, attention was directed to closure. The wound was irrigated with ropivacaine plain. It was then closed with 3-0 nylon in an interrupted mattress fashion. Sterile dressing was then placed consisting of Dermabond, OpSite, fluffed fluffs, sterile soft roll, a volar splint, and an Familia wrap. The tourniquet was released after 39 minutes. There were no complications. There were no specimens. The procedure was well tolerated. Plan is the patient will be discharged home. Related Problem List Diagnoses (1) Carpal tunnel syndrome, left:
[2021-07-26 08:39] VITALS: RESP 18; O2SAT 96
[2021-07-26] MEDS: oxyCODONE-APAP 5-325 mg Tablet 1 TAB PO (08:39)
--- NOTE | 2021-07-26 14:17 | ANE.PACU2 ---
Inpatient post-anesthesia follow up: Airway intact: Yes Vital signs: Temperature 97.1 F Pulse Rate 86 Respiratory Rate 18 Blood Pressure 132/85 Pulse Oximetry 96 Oxygen Delivery Me thod Room Air Oxygen Flow Rate 6 Fraction of Inspir ed Oxygen Hydration adequate: Yes Nausea and vomiting: No Pain level: 1 Mental status: Baseline
== END 2021-07-26 08:42 | disposition home or self-care (01) ==
PROVIDERS: Anesthesiology; PCP Nurse Practitioner Family; Visit Provider Specialist
PROC: (CPT 64721; principal; 2021-07-26 07:00)
DX: G56.02 Carpal tunnel syndrome, left upper limb (principal); K21.9 Gastro-esophageal reflux disease without esophagitis; E11.9 Type 2 diabetes mellitus without complications; E66.01 Morbid (severe) obesity due to excess calories; Z68.35 Body mass index [BMI] 35.0-35.9, adult; Z79.84 Long term (current) use of oral hypoglycemic drugs
CPT/HCPCS: 64721; 36416; 82962; 84703; J2250; J2704; J3010; J3490; J7030

== ENCOUNTER 2021-08-13 06:00 | Outpatient (RCR) | payer OTHER, MEDICAID, SELFPAY | END 2021-09-12 23:59 | disposition home or self-care (01) | LOC: SOT 06:00 | PROVIDERS: PCP Nurse Practitioner Family; Visit Provider Specialist | DX: G56.02 Carpal tunnel syndrome, left upper limb (principal) | CPT/HCPCS: 97022; 97032; 97035; 97110; 97140; 97165; 97168 ==

== ENCOUNTER 2021-08-29 09:50 | Outpatient (CLI) | payer OTHER, MEDICAID, SELFPAY ==
[2021-08-29 10:22] LABS: Basophils # 0.1 10^3/uL (0.0-0.1); Basophils % 0.3 %; Eosinophils # 0.1 10^3/uL (0.0-0.8); Eosinophils % 0.3 %; Hematocrit 35.5 % (37.0-47.0); Hemoglobin 11.6 g/dL (11.5-15.3); Lymphocytes # 1.5 10^3/uL (0.8-4.8); Mean Corpuscular HGB Conc 32.7 g/dL (30.0-36.0); Mean Corpuscular Hemoglobin 28.4 pg (28.0-34.0); Mean Corpuscular Volume 86.8 fl (81-99); Mean Platelet Volume 8.8 fL (7.4-10.4); Monocytes # 0.7 10^3/uL (0.2-0.9); Monocytes % 3.7 %; Neutrophils % 86.6 %; Nucleated Red Blood Cells % 0 %; Platelet Count 293 10^3/cmm (130-400); Red Blood Count 4.09 10^6/uL (4.1-5.3); Red Cell Distribution Width 13.2 % (12.1-15.1); White Blood Count 18.5 10^3/uL (4.0-10.0)
[2021-08-29 10:40] LABS: Estmated Average Glucose 120; Hemoglobin A1C 5.8 % (4.0-6.0)
[2021-08-29 11:03] LABS: Alanine Aminotransferase 24 U/L (0-33); Alkaline Phosphatase 82 IU/L (35-105); Aspartate Amino Transferase 22 U/L (0-32); Blood Urea Nitrogen 16 mg/dL (6-20); Calcium 8.8 mg/dL (8.5-10.5); Carbon Dioxide 23 mmol/L (22-29); Chloride 100 mmol/L (98-107); Chol HDL Ratio 3.79 mg/dL (0.0-4.40); Cholesterol 231 mg/dL (0-200); Glomerular Filtration Rate 111.9 mL/min (90-130); Glucose 184 mg/dL (65-115); HDL Cholesterol 61 mg/dL (60-100); LDL Cholesterol Calculated 137 mg/dL (50-129); LDL HDL Ratio 2.25 RATIO (0.00-3.22); Osmolality Calculated 288 mOsm/kg (285-295); Sodium 136 mmol/L (136-145); Thyroid Stimulating Hormone 2.85 uIU/mL (0.27-4.20); Total Bilirubin 0.6 mg/dL (0.15-1.2); Triglycerides 163 mg/dL (0-150); Vitamin B12 812 pg/mL (232-1245)
[2021-08-29 11:15] LABS: 25 Hydroxy Vitamin D > 100 ng/mL (30-100)
[2021-08-30 08:36] LABS: T4 Total 12.3 mcg/dL (5.1-11.9)
== END 2021-08-29 09:51 | disposition home or self-care (01) ==
PROVIDERS: PCP Nurse Practitioner Family; Visit Provider Nurse Practitioner Family
DX: Z00.00 Encounter for general adult medical examination without abnormal findings (principal); E11.9 Type 2 diabetes mellitus without complications; R60.9 Edema, unspecified; R53.83 Other fatigue; F41.9 Anxiety disorder, unspecified
CPT/HCPCS: 80053; 80061; 82306; 82607; 83036; 84436; 84443; 85025

== ENCOUNTER 2021-11-12 13:02 | Outpatient (CLI) | payer OTHER, MEDICAID, SELFPAY ==
[2021-11-12 13:58] LABS: Basophils # 0.1 10^3/uL (0.0-0.1); Basophils % 0.6 %; Eosinophils # 0.3 10^3/uL (0.0-0.8); Eosinophils % 2.6 %; Hematocrit 38.6 % (37.0-47.0); Hemoglobin 12.6 g/dL (11.5-15.3); Lymphocytes # 2.8 10^3/uL (0.8-4.8); Lymphocytes % 27.3 %; Mean Corpuscular HGB Conc 32.6 g/dL (30.0-36.0); Mean Corpuscular Hemoglobin 28.5 pg (28.0-34.0); Mean Corpuscular Volume 87.3 fl (81-99); Mean Platelet Volume 9.1 fL (7.4-10.4); Monocytes # 0.5 10^3/uL (0.2-0.9); Monocytes % 5.4 %; Neutrophils # 6.38 10^3/uL (1.8-7.7); Neutrophils % 63.4 %; Nucleated Red Blood Cells % 0 %; Platelet Count 343 10^3/cmm (130-400); Red Blood Count 4.42 10^6/uL (4.1-5.3); Red Cell Distribution Width 13.7 % (12.1-15.1); White Blood Count 10.1 10^3/uL (4.0-10.0)
[2021-11-12 14:02] LABS: Estmated Average Glucose 137; Hemoglobin A1C 6.4 % (4.0-6.0)
[2021-11-12 14:09] LABS: Alanine Aminotransferase 29 U/L (0-33); Albumin Level 4.6 g/dL (3.5-5.2); Alkaline Phosphatase 79 IU/L (35-105); Aspartate Amino Transferase 24 U/L (0-32); Blood Urea Nitrogen 19 mg/dL (6-20); C Reactive Protein 4.7 mg/L (0.0-4.9); Calcium 9.5 mg/dL (8.5-10.5); Carbon Dioxide 25 mmol/L (22-29); Chloride 98 mmol/L (98-107); Glomerular Filtration Rate 70.1 mL/min (90-130); Glucose 163 mg/dL (65-115); Osmolality Calculated 284 mOsm/kg (285-295); Sodium 134 mmol/L (136-145); Thyroid Stimulating Hormone 3.29 uIU/mL (0.27-4.20); Total Bilirubin 0.2 mg/dL (0.15-1.2); Total Protein 7.6 g/dL (6.6-8.7); Uric Acid 5.5 mg/dL (2.4-5.7)
[2021-11-12 14:11] LABS: Erythrocyte Sedimentation Rate 25 mm/hr (0-15)
[2021-11-13 08:28] LABS: T4 Total 9.2 mcg/dL (5.1-11.9)
[2021-11-13 12:52] LABS: COMPLEMENT COMPONENT C3C 156 mg/dL (83-193); COMPLEMENT COMPONENT C4C 33 mg/dL (15-57)
[2021-11-13 13:07] LABS: COMPLEMENT, TOTAL (CH50) >60 U/mL (31-60)
[2021-11-13 13:57] LABS: THYROID PEROXIDASE ANTIBODIES 45 IU/mL (<9)
[2021-11-13 15:02] LABS: CENTROMERE B ANTIBODY <1.0 NEG AI (<1.0 NEG); JO-1 ANTIBODY <1.0 NEG AI (<1.0 NEG); RNP ANTIBODY <1.0 NEG AI (<1.0 NEG); SCL-70 ANTIBODY <1.0 NEG AI (<1.0 NEG); SJOGREN'S ANTIBODY (SS-A) <1.0 NEG AI (<1.0 NEG); SM ANTIBODY <1.0 NEG AI (<1.0 NEG); SS-B <1.0 NEG AI (<1.0 NEG)
[2021-11-14 16:43] LABS: ANA SCREEN, IFA NEGATIVE (NEGATIVE)
[2021-11-15 11:37] LABS: DNA AB (DS) CRITHIDIA,IFA NEGATIVE (NEGATIVE)
== END 2021-11-12 13:03 | disposition home or self-care (01) ==
LOC: LAB 13:04
PROVIDERS: PCP Nurse Practitioner Family; Visit Provider Nurse Practitioner Family
DX: E11.610 Type 2 diabetes mellitus with diabetic neuropathic arthropathy (principal); M25.59 Pain in other specified joint; M79.10 Myalgia, unspecified site
CPT/HCPCS: 36415; 80053; 83036; 84436; 84443; 84550; 85025; 85651; 86140; 86160; 86162; 86235; 86255; 86376

== ENCOUNTER 2022-01-11 21:26 | Emergency (ER) | payer OTHER, MEDICAID, SELFPAY ==
[2022-01-11 21:34] VITALS: BP 190/120; PULSE 100; RESP 17; TEMP 37.1; O2SAT 99; BMI 35.6
--- NOTE | 2022-01-11 22:08 | USR_ITS ---
PROCEDURE INFORMATION: Exam: US Duplex Left Lower Extremity Veins, Limited Exam date and time: 01/11/2022 10:36 PM Age: 41 years old Clinical indication: Swelling (edema) of limb; Lower extremity, left; Additional info: Rule out dvt, order form not printing TECHNIQUE: Imaging protocol: Real-time Duplex ultrasound of the Left Lower Extremity with 2-D romero scale, color Doppler flow and spectral waveform analysis with image documentation. Limited exam focused on the left lower extremity veins. COMPARISON: US OB transvaginal [facility] 07/20/2020 8:13 AM FINDINGS: Left deep veins: Unremarkable. The common femoral, femoral, proximal profunda femoral and popliteal veins are patent without thrombus. Normal Doppler waveforms. Normal compressibility and/or augmentation response. Left superficial veins: Unremarkable. Saphenofemoral junction is patent without thrombus. Soft tissues: Unremarkable. US/CV venous duplex [facility] [id number] IMPRESSION: No evidence of deep vein thrombosis.
--- NOTE | 2022-01-11 22:49 | ED_ITS ---
HPI - Extremity Problem General: Chief complaint: Extremity Problem,Nontraumatic Stated complaint: left leg pain Time Seen by Provider: 01/11/22 22:47 History of Present Illness: 41-year-old female comes in today with complaints of swelling and tingling to the left lower extremity. Patient has a history of hypertension, diabetes, reflux, and anxiety disorder. Review of Systems General: Reports: 10 or more systems reviewed and unremarkable except in HPI and below Musc: Reports: extremity pain and extremity swelling PFSH ED PFSH: Medical History Diabetes mellitus without complication, without long-term current use of insulin Gastroesophageal reflux Menstrual migraine Obesity Polycystic ovarian syndrome Surgical History History of cholecystectomy (~03/1999) Laparoscopic. Performed at [facility] in [place], [place] History of dilation and curettage (12/25/15) Treatment of missed . D&C with suction performed. Performed by Dr. Cartwright at [facility] in [place], [place]. History of dilation and curettage (11/26/16) Treatment of miscarriage. Performed by Dr. Cartwright at [facility] in [place], [place]. Hx of dilation and curettage (03/24/19) Treatment of Missed . Performed by Dr. Cartwright at [facility] in [place], [place]. Hx of dilation and curettage (07/23/20) Treatment of blighted ovum. Performed by Dr. Cartwright at [facility] in [place], [place] S/P tubal ligation (10/02/20) Laparoscopic complete salpingectomy. Performed by Dr. Cartwright at [facility] in [place], [place]. Family History Mother Hypertension Grandmother Heart disease Maternal Diabetes Maternal Family/Other Breast cancer Maternal great aunt Diabetes Maternal great-grandmother Family/Other No problems noted. 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 Reproductive History: Date of last menstrual period: 09/24/20 Physical Exam Const: COMMON NORMALS: alert HENMT: COMMON NORMALS: normocephalic HEAD & SCALP: normocephalic Neck/C-Spine: COMMON NORMALS: full ROM Resp: COMMON NORMALS: normal respiratory effort and clear to auscultation bilaterally AUSCULTATION: clear to auscultation bilaterally Cardio: COMMON NORMALS: regular rate and regular rhythm RATE: regular rate RHYTHM: regular rhythm GI: COMMON NORMALS: Soft to palpation PALPATION: Yes Soft to palpation Extremity: RIGHT LOWER EXTREMITY: Yes lower leg LEFT LOWER EXTREMITY: Yes lower leg (Mild swelling no redness, negative Homans) Left lower leg: Yes inspection, Yes palpation and Yes neurovascular exam Neuro: SENSORIUM/ORIENTATION: Yes alert Skin: COMMON NORMALS: no rashes or lesions noted GENERAL SKIN EXAM: no rashes or lesions noted Course Vital Signs: Vital signs: Vital Signs Temperature 98.8 F 01/11/22 21:34 Pulse Rate 100 01/11/22 21:34 Respiratory Rate 17 01/11/22 21:34 Blood Pressure 190/120 01/11/22 21:34 Pulse Oximetry 99 01/11/22 21:34 Oxygen Delivery Me thod 01/11/22 21:34 MDM - Extremity (Nontraumatic) Medical Decision Making Patient comes in today for complaints of left lower extremity swelling and pain. On exam patient does have some mild swelling to the left versus the right lower extremity. Pulses and sensation are intact. No obvious redness or discoloration is noted to the extremity. Vital signs are normal except for elevated blood pressure. Differential diagnosis includes but not limited to peripheral edema, DVT, cellulitis. Ultrasound of the extremity is negative for DVT. No sign of cellulitis is noted at this time. No sign of serious injury or illness is noted. Believe patient probably does have some mild peripheral edema secondary to poorly controlled hypertension. Patient reports that she does have furosemide at home that she will use for her swelling as needed. I recommended that she monitor and recheck her blood pressure and follow-up with primary care for persistent elevated readings. Patient reports that normally at home she runs about 130-140 systolic. Patient reported understanding of care plan need for follow-up or return to the ER. Lab Data Radiology Impressions Venous Duplex 01/11/22 22:08 IMPRESSION: No evidence of deep vein thrombosis. Discharge Plan Discharge Patient Disposition: Home Clinical Impression: Lower extremity edema Condition: Stable Prescriptions: No Action (DME) cock up splint-bilateral wrist See Rx Instructions .Route .MEDSUPPLY Qty: 1 0RF Rx Instructions: As directed metformin 1,000 mg tablet 1,000 mg PO BID alprazolam [Xanax] 0.5 mg tablet 0.5 - 1 mg PO TID PRN (Reason: anxiety) Qty: 20 0RF Victoza 2-Tulio 0.6 mg/0.1 mL (18 mg/3 mL) pen injector 1.8 mg SUBCUT DAILY Label Comments: HAVNT TAKEN THAT bupropion HCl [Wellbutrin SR] 150 mg tablet sustained-release 12 hr 150 mg PO BID glipizide 10 mg tablet 10 mg PO BID ibuprofen 800 mg tablet 800 mg PO TID PRN (Reason: pain) Qty: 30 0RF triamterene-hydrochlorothiazid [Maxzide-25mg] 37.5-25 mg tablet 1 tab PO DAILY Discharge Orders: Discharge ED (Routine); Ordered 01/11/22 Ordered By: Ortiz Rizo Referrals: Carmelina Dailey APN [Primary Care Provider] - Discharge Diet: Usual diet Discharge Activity: Increase activity as tolerated Patient Instructions: Leg Edema (ED) Activity Restrictions/Additional Instructions: Continue with routine care. Follow-up with primary care in 1 week for recheck especially for persistent symptoms. Monitor leg for worsening symptoms such as increased redness, pain, and fever. Return to the ER for worsening symptoms, or new concerns. Coding Level of Care Code ED [employer] for [employer] Contre[facility]
[2022-01-11 23:27] VITALS: BP 162/98; PULSE 100; RESP 18; O2SAT 95
== END 2022-01-11 23:28 | disposition home or self-care (01) ==
PROVIDERS: Emergency Provider Nurse Practitioner Family; PCP Nurse Practitioner Family
DX: R60.0 Localized edema (principal); Z79.84 Long term (current) use of oral hypoglycemic drugs; E11.9 Type 2 diabetes mellitus without complications
CPT/HCPCS: 93971; 99283

== ENCOUNTER → 2022-01-14 10:30 | Outpatient (BNVA) | payer OTHER, MEDICAID, SELFPAY | PROVIDERS: PCP Nurse Practitioner Family; Visit Provider Internal Medicine Rheumatology | DX: Z79.899 Other long term (current) drug therapy (principal); M19.90 Unspecified osteoarthritis, unspecified site; G56.02 Carpal tunnel syndrome, left upper limb | CPT/HCPCS: 36415; 82085; 82306; 82550; 85651; 86140; 86200; 86431; 86480; 86704; 86803; 87340 ==

== ENCOUNTER → 2022-05-13 16:12 | Outpatient (BNVA) | payer OTHER, MEDICAID, SELFPAY | PROVIDERS: PCP Nurse Practitioner Family; Visit Provider Internal Medicine Rheumatology | DX: Z79.899 Other long term (current) drug therapy (principal); M19.90 Unspecified osteoarthritis, unspecified site | CPT/HCPCS: 36415; 80076; 82565; 85025; 86140 ==

== ENCOUNTER → 2022-08-04 15:54 | Outpatient (BNVA) | payer OTHER, MEDICAID, SELFPAY | PROVIDERS: PCP Nurse Practitioner Family; Visit Provider Internal Medicine Rheumatology | DX: Z79.899 Other long term (current) drug therapy (principal); M19.90 Unspecified osteoarthritis, unspecified site | CPT/HCPCS: 36415; 80076; 82565; 85025; 86140 ==

== ENCOUNTER → 2022-08-11 17:29 | Outpatient (BNVA) | payer OTHER, MEDICAID, SELFPAY | PROVIDERS: PCP Nurse Practitioner Family; Visit Provider Family Medicine | DX: J02.9 Acute pharyngitis, unspecified (principal); Z20.822 Contact with and (suspected) exposure to COVID-19 | CPT/HCPCS: 87426 ==

== ENCOUNTER 2022-08-18 11:45 | Outpatient (CLI) | payer OTHER, MEDICAID, SELFPAY ==
[2022-08-18 12:30] LABS: Blood Urea Nitrogen 20 mg/dL (6-20); Ferritin 48 ng/mL (15-150); Glomerular Filtration Rate 55.3 mL/min (90-130); Iron 35 ug/dL (37-145); Percent Saturation 13.3 % (20-50); Total Iron Binding Capacity 262 mcg/dl; Unsaturated Iron Binding 227 ug/dL (112-347)
== END 2022-08-18 11:46 | disposition home or self-care (01) ==
LOC: LAB 11:46
PROVIDERS: PCP Nurse Practitioner Family; Visit Provider Internal Medicine Rheumatology
DX: M19.90 Unspecified osteoarthritis, unspecified site (principal); Z79.899 Other long term (current) drug therapy
CPT/HCPCS: 36415; 82565; 82728; 83540; 83550; 84520

== ENCOUNTER 2022-09-17 16:27 | Inpatient (IN) | payer OTHER, MEDICAID, SELFPAY ==
[2022-09-17] VITALS (41 sets, daily range): BP systolic 133–167; BP diastolic 78–112; PULSE 80–97; RESP 16–18; O2SAT 93–100
--- NOTE | 2022-09-17 16:42 | W.ED.HEATRA ---
Documented by User: Jason Sampson MD 10/01/22 01:52 HPI - Head Injury General: Chief complaint: Head Injury Stated complaint: fall/head injury/headache Time Seen by Provider: 09/17/22 16:42 History of Present Illness: Ms Lai is a 41-year-old lady with history of unspecified autoimmune disorder, diabetes presenting to the emergency department for syncope with head injury. She reports for some period of time having intermittent syncopal episodes most typically associated with position changes. This morning she was standing and had a feeling like she was going to pass out and a weird sensation and managed to stabilize herself however she subsequently sneezed and fell hitting the right side of her head on a table. Since that time she has had headache, dizziness, ringing in her ears. She continues to feel generally unwell. Overall course of symptoms has persisted. Intensity is moderate. No other specific changes in health, exacerbating, or alleviating factors identified. Onset (ago): hour(s) Mechanism of Injury: fall Loss of Consciousness: no Severity: moderate Quality: stabbing and aching Associated symptoms: Reports nausea, neck pain, tingling and other Review of Systems General: Reports: 10 or more systems reviewed and unremarkable except in HPI and below GI: Reports: nausea Musc: Reports: neck pain PFSH ED PFSH: Medical History (Updated 09/21/22 @ 00:01 by AARTI Gorman) Anti-TPO antibodies present Anxiety Depression Diabetes mellitus, type II Gastroesophageal reflux High risk medication use leflunomide and hydroxychloroquine, intermittent steroids Inflammatory arthritis RA negative, anti CCP negative, NING negative Joint pain Menstrual migraine Muscle spasms of both lower extremities Obesity Polycystic ovarian syndrome Surgical History (Updated 09/19/22 @ 16:17 by Shantelle Navarro MD) History of carpal tunnel release left 07/26/2021 History of cholecystectomy (~03/1999) Laparoscopic. Performed at [facility] in [place], [place] History of dilation and curettage (12/25/15) Treatment of missed . D&C with suction performed. Performed by Dr. Cartwright at [facility] in [place], [place]. History of dilation and curettage (11/26/16) Treatment of miscarriage. Performed by Dr. Cartwright at [facility] in [place], [place]. Hx of dilation and curettage (03/24/19) Treatment of Missed . Performed by Dr. Cartwright at [facility] in [place], [place]. Hx of dilation and curettage (07/23/20) Treatment of blighted ovum. Performed by Dr. Cartwright at [facility] in [place], [place] S/P tubal ligation (10/02/20) Laparoscopic complete salpingectomy. Performed by Dr. Cartwright at [facility] in [place], [place]. Family History Mother Hypertension Grandmother Heart disease Maternal Diabetes Maternal Family/Other Breast cancer Maternal great aunt Diabetes Maternal great-grandmother Family/Other No problems noted. Other Cancer Family history of premature coronary artery disease Denies family history of Rheumatoid arthritis Lupus Chronic kidney disease (CKD) Stroke Social History Smoking and tobacco status: never smoked Alcohol intake: never Current occupation: computer Physical Exam Const: COMMON NORMALS: alert GENERAL APPEARANCE: cooperative and well developed HENMT: COMMON NORMALS: normocephalic and atraumatic HEAD & SCALP: normocephalic and atraumatic THROAT: posterior oropharynx normal OTHER: Hematoma to left parietal region, no obvious bony abnormality underlying. No clayton signs or raccoon eyes. No hemotympanum. No otorrhea or rhinorrhea. Jaw alignment normal. Dentition baseline. No obvious bony step-offs. No septal hematoma. No evidence of ocular entrapment. Eye: COMMON NORMALS: conjunctivae normal CONJUNCTIVA: Yes conjunctivae normal SCLERA: sclerae normal Neck/C-Spine: COMMON NORMALS: supple GENERAL: Yes trachea midline OTHER: Generalized spinal and paraspinal tenderness, normal range of motion. Resp: COMMON NORMALS: normal respiratory effort EFFORT & INSPECTION: Yes able to speak in complete sentences Cardio: COMMON NORMALS: regular rate and regular rhythm RATE: regular rate RHYTHM: regular rhythm GI: COMMON NORMALS: Soft to palpation PALPATION: Yes Soft to palpation and No Tenderness to palpation present (GI) Extremity: GENERAL: Yes normal exam except as noted and No edema Neuro: COMMON NORMALS: moves all extremities SENSORIUM/ORIENTATION: Yes alert and No Orientation impaired Psych: COMMON NORMALS: mental status grossly normal and Normal thought process present THOUGHT PROCESS: Normal thought process present Course Vital Signs: Vital signs: Vital Signs Temperature 98.0 F 09/20/22 18:50 Pulse Rate 88 09/20/22 18:50 Respiratory Rate 18 09/20/22 18:50 Blood Pressure 134/87 09/20/22 18:50 Pulse Oximetry 98 09/20/22 18:50 Oxygen Delivery Me thod Room Air 09/20/22 07:46 MDM - Head Injury Medcial Decision Making 41 yo presenting to the ED for recurrent syncope and head injury. Exam as above. Workup ordered and and handed off to dr Lorenzana pending completion and evaluation for dispo. Patient presents with recurrent syncopal episodes she does have a little bit elevated creatinine from her baseline likely some dehydration will admit for observation for rehydration. Medical Records I reviewed the patient's medical records. Lab Data I reviewed the patient's lab results. 09/19/22 04:06 09/20/22 05:00 Radiology Impressions Cervical Spine CT 09/17/22 16:58 IMPRESSION: 1. No acute osseous injury. 2. 3 mm solid right upper lobe nodule. For patients at low risk (minimal or absent history of smoking and of other known risk factors), no routine follow-up is indicated. For patients at high risk (history of smoking or of other known risk factors), consider optional CT Chest at 12 months. (Reference: Grace) REFERENCES: Judyhojace Mcwilliams, et al. Guidelines for Management of Incidental Pulmonary Nodules Detected on CT Images: From the Fleischner Society 2017. Radiology. 2017;284(1):228-243. Head CT 09/17/22 16:58 IMPRESSION: No acute intracranial abnormality. Abdomen/Pelvis CT 09/18/22 10:19 IMPRESSION: 1. Prior cholecystectomy. 2. No renal obstruction or atrophy. 3. No GI tract obstruction. Normal appendix. 4. Small LEFT ovarian cyst. Carotid Doppler Study 09/19/22 16:26 IMPRESSION: 1. No right carotid arterial stenosis. 2. Mild calcified plaque in the proximal left internal carotid artery with significantly less than 50% stenosis. REFERENCES: SRU CRITERIA. The degree of internal carotid artery stenosis is based on criteria defined by the Society of Radiologists in Ultrasound (SRU). Normal is no stenosis. Mild is less than 50% stenosis. Moderate is 50-69% stenosis. Severe is greater than 69% stenosis to near occlusion. Near occlusion is a markedly narrowed lumen. Total occlusion is no detectable patent lumen. Laboratory Results WBC 8.0 10^3/uL (4.0-10.0) 09/18/22 06:10 RBC 3.85 10^6/uL (4.1-5.3) L 09/18/22 06:10 Hgb 10.6 g/dL (11.5-15.3) L 09/18/22 06:10 Hct 32.7 % (37.0-47.0) L 09/18/22 06:10 MCV 84.9 fl (81-99) 09/18/22 06:10 MCH 27.5 pg (28.0-34.0) L 09/18/22 06:10 MCHC 32.4 g/dL (30.0-36.0) 09/18/22 06:10 RDW 13.2 % (12.1-15.1) 09/18/22 06:10 Plt Count 243 10^3/cmm (130-400) 09/18/22 06:10 MPV 10.2 fL (7.4-10.4) 09/18/22 06:10 Neut % (Auto) 50.6 % 09/18/22 06:10 Lymph % (Auto) 35.0 % 09/18/22 06:10 [place] % (Auto) 9.2 % 09/18/22 06:10 Eos % (Auto) 3.9 % 09/18/22 06:10 Baso % (Auto) 1.2 % 09/18/22 06:10 Neut # (Auto) 4.06 10^3/uL (1.8-7.7) 09/18/22 06:10 Lymph # (Auto) 2.8 10^3/uL (0.8-4.8) 09/18/22 06:10 [place] # (Auto) 0.7 10^3/uL (0.2-0.9) 09/18/22 06:10 Eos # (Auto) 0.3 10^3/uL (0.0-0.8) 09/18/22 06:10 Baso # (Auto) 0.1 10^3/uL (0.0-0.1) 09/18/22 06:10 Nucleated RBC % (auto) 0 % 09/18/22 06:10 Nucleated RBCs # 0.0 /100WBC 09/18/22 06:10 D-Dimer 0.28 ug/mIFEU (0-0.59) 09/17/22 17:11 Sodium 140 mmol/L (136-145) 09/18/22 06:10 Potassium 3.1 mmol/L (3.5-5.1) L 09/18/22 06:10 Chloride 102 mmol/L (98-107) 09/18/22 06:10 Carbon Dioxide 28 mmol/L (22-29) 09/18/22 06:10 Anion Gap 13.1 (5-19) 09/18/22 06:10 BUN 31 mg/dL (6-20) H 09/18/22 06:10 Creatinine 2.4 mg/dL (0.5-0.9) H 09/18/22 06:10 GFR Calculation 22.5 mL/min (90-130) L 09/18/22 06:10 Glucose 78 mg/dL (65-115) 09/18/22 06:10 POC Glucose 84 mg/dL (70-110) 09/18/22 06:08 Estimat Average Glucose 82 09/17/22 17:11 Hemoglobin A1c 4.5 % (4.0-6.0) 09/17/22 17:11 Calculated Osmolality 295 mOsm/kg (285-295) 09/18/22 06:10 Calcium 8.5 mg/dL (8.5-10.5) 09/18/22 06:10 Phosphorus 3.0 mg/dL (2.5-4.5) 09/18/22 06:10 Magnesium 1.4 mg/dL (1.7-2.3) L 09/18/22 06:10 Total Bilirubin 0.3 mg/dL (0.15-1.2) 09/17/22 17:11 AST 18 U/L (0-32) 09/17/22 17:11 ALT 17 U/L (0-33) 09/17/22 17:11 Alkaline Phosphatase 66 U/L (35-105) 09/17/22 17:11 Troponin T Gen 5 ng/L 49 ng/L (0-10) H 09/17/22 21:50 C-Reactive Protein 4.7 mg/L (0.0-4.9) 09/18/22 06:10 Total Protein 7.3 g/dL (6.6-8.7) 09/17/22 17:11 Albumin 4.5 g/dL (3.5-5.2) 09/17/22 17:11 Globulin 2.8 g/dL (1.3-4.6) 09/17/22 17:11 Vitamin B12 853 pg/mL (232-1245) 09/17/22 17:11 TSH 3.51 uIU/mL (0.27-4.20) 09/17/22 17:11 TSH 3.62 uIU/mL (0.27-4.20) 09/17/22 17:11 HCG, Qual Negative (Negative) 09/17/22 16:59 Urine Color Yellow (Yellow) 09/17/22 21:15 Urine Appearance Cloudy (CLEAR) A 09/17/22 21:15 Urine pH 5 (5-7) 09/17/22 21:15 Ur Specific [place] 1.020 (1.005-1.030) 09/17/22 21:15 Urine Protein Trace (Negative) 09/17/22 21:15 Urine Glucose (UA) Norm (Normal) 09/17/22 21:15 Urine Ketones 1+ (Negative) H 09/17/22 21:15 Urine Blood Neg (Negative) 09/17/22 21:15 Urine Nitrate Negative (Negative) 09/17/22 21:15 Urine Bilirubin Neg (Negative) 09/17/22 21:15 Urine Urobilinogen Neg mg/dL (Negative) 09/17/22 21:15 Ur Leukocyte Esterase Trace (Negative) H 09/17/22 21:15 Urine RBC 0-4 /hpf (0-2) H 09/17/22 21:15 Urine WBC 5-10 /hpf (0-5) H 09/17/22 21:15 Ur Eosinophil Smear 0 (0-0) 09/17/22 21:15 Ur Squamous Epith Cells 15-25 /hpf (0-5) H 09/17/22 21:15 Amorphous Sediment Not Reportable 09/17/22 21:15 Urine Bacteria 4+ /hpf (NONE) H 09/17/22 21:15 Urine Eosinophils No eosinophils seen 09/17/22 21:15 Ur Random Sodium 78 mmol/L 09/17/22 21:15 Ur Random Potassium 26 mmol/L 09/17/22 21:15 Ur Random Chloride 67 mmol/L 09/17/22 21:15 Urine Creatinine 135 mg/dL (28-217) 09/17/22 21:15 Urine Opiates Screen Negative ng/mL (Negative) 09/17/22 21:15 Ur Barbiturates Screen Negative ng/mL (Negative) 09/17/22 21:15 Ur Phencyclidine Scrn Negative ng/mL (Negative) 09/17/22 21:15 Ur Amphetamines Screen Positive ng/mL (Negative) H 09/17/22 21:15 U Benzodiazepines Scrn Negative ng/mL (Negative) 09/17/22 21:15 Urine Cocaine Screen Negative ng/mL (Negative) 09/17/22 21:15 U Marijuana (THC) Screen Negative ng/mL (Negative) 09/17/22 21:15 Discharge Plan Discharge Patient Disposition: Admitted As Inpatient Admit Provider: Angelica Parsons Clinical Impression: Closed head injury, Recurrent syncope, Neck pain, JACOB (acute kidney injury), Hypomagnesemia, Hypokalemia Condition: Stable Discharge Diet: Usual diet Discharge Activity: Resume usual activity Coding Level of Care Code ED Real Estate Portfolio Manager for Chg Fwd Documented by User: Bell Lorenzana MD 09/17/22 19:12 HPI - Head Injury General: Chief complaint: Head Injury Stated complaint: fall/head injury/headache Time Seen by Provider: 09/17/22 16:42 PFSH ED PFSH: Medical History (Updated 09/21/22 @ 00:01 by AARTI Gorman) Anti-TPO antibodies present Anxiety Depression Diabetes mellitus, type II Gastroesophageal reflux High risk medication use leflunomide and hydroxychloroquine, intermittent steroids Inflammatory arthritis RA negative, anti CCP negative, NING negative Joint pain Menstrual migraine Muscle spasms of both lower extremities Obesity Polycystic ovarian syndrome Surgical History (Updated 09/19/22 @ 16:17 by Shantelle Navarro MD) History of carpal tunnel release left 07/26/2021 History of cholecystectomy (~03/1999) Laparoscopic. Performed at [facility] in [place], [place] History of dilation and curettage (12/25/15) Treatment of missed . D&C with suction performed. Performed by Dr. Cartwright at [facility] in [place], [place]. History of dilation and curettage (11/26/16) Treatment of miscarriage. Performed by Dr. Cartwright at [facility] in [place], [place]. Hx of dilation and curettage (03/24/19) Treatment of Missed . Performed by Dr. Cartwright at [facility] in [place], [place]. Hx of dilation and curettage (07/23/20) Treatment of blighted ovum. Performed by Dr. Cartwright at [facility] in [place], [place] S/P tubal ligation (10/02/20) Laparoscopic complete salpingectomy. Performed by Dr. Cartwright at [facility] in [place], [place]. Family History Mother Hypertension Grandmother Heart disease Maternal Diabetes Maternal Family/Other Breast cancer Maternal great aunt Diabetes Maternal great-grandmother Family/Other No problems noted. Other Cancer Family history of premature coronary artery disease Denies family history of Rheumatoid arthritis Lupus Chronic kidney disease (CKD) Stroke Social History Smoking and tobacco status: never smoked Alcohol intake: never Current occupation: computer Course Vital Signs: Vital signs: Vital Signs Temperature 98.0 F 09/20/22 18:50 Pulse Rate 88 09/20/22 18:50 Respiratory Rate 18 09/20/22 18:50 Blood Pressure 134/87 09/20/22 18:50 Pulse Oximetry 98 09/20/22 18:50 Oxygen Delivery Me thod Room Air 09/20/22 07:46 MDM - Head Injury Medcial Decision Making Patient presents with recurrent syncopal episodes she does have a little bit elevated creatinine from her baseline likely some dehydration will admit for observation for rehydration. Lab Data 09/19/22 04:06 09/20/22 05:00 Radiology Impressions Cervical Spine CT 09/17/22 16:58 IMPRESSION: 1. No acute osseous injury. 2. 3 mm solid right upper lobe nodule. For patients at low risk (minimal or absent history of smoking and of other known risk factors), no routine follow-up is indicated. For patients at high risk (history of smoking or of other known risk factors), consider optional CT Chest at 12 months. (Reference: Grace) REFERENCES: Grace Mcwilliams et al. Guidelines for Management of Incidental Pulmonary Nodules Detected on CT Images: From the Fleischner Society 2017. Radiology. 2017;284(1):228-243. Head CT 09/17/22 16:58 IMPRESSION: No acute intracranial abnormality. Abdomen/Pelvis CT 09/18/22 10:19 IMPRESSION: 1. Prior cholecystectomy. 2. No renal obstruction or atrophy. 3. No GI tract obstruction. Normal appendix. 4. Small LEFT ovarian cyst. Carotid Doppler Study 09/19/22 16:26 IMPRESSION: 1. No right carotid arterial stenosis. 2. Mild calcified plaque in the proximal left internal carotid artery with significantly less than 50% stenosis. REFERENCES: SRU CRITERIA. The degree of internal carotid artery stenosis is based on criteria defined by the Society of Radiologists in Ultrasound (SRU). Normal is no stenosis. Mild is less than 50% stenosis. Moderate is 50-69% stenosis. Severe is greater than 69% stenosis to near occlusion. Near occlusion is a markedly narrowed lumen. Total occlusion is no detectable patent lumen. Laboratory Results WBC 8.0 10^3/uL (4.0-10.0) 09/18/22 06:10 RBC 3.85 10^6/uL (4.1-5.3) L 09/18/22 06:10 Hgb 10.6 g/dL (11.5-15.3) L 09/18/22 06:10 Hct 32.7 % (37.0-47.0) L 09/18/22 06:10 MCV 84.9 fl (81-99) 09/18/22 06:10 MCH 27.5 pg (28.0-34.0) L 09/18/22 06:10 MCHC 32.4 g/dL (30.0-36.0) 09/18/22 06:10 RDW 13.2 % (12.1-15.1) 09/18/22 06:10 Plt Count 243 10^3/cmm (130-400) 09/18/22 06:10 MPV 10.2 fL (7.4-10.4) 09/18/22 06:10 Neut % (Auto) 50.6 % 09/18/22 06:10 Lymph % (Auto) 35.0 % 09/18/22 06:10 [place] % (Auto) 9.2 % 09/18/22 06:10 Eos % (Auto) 3.9 % 09/18/22 06:10 Baso % (Auto) 1.2 % 09/18/22 06:10 Neut # (Auto) 4.06 10^3/uL (1.8-7.7) 09/18/22 06:10 Lymph # (Auto) 2.8 10^3/uL (0.8-4.8) 09/18/22 06:10 [place] # (Auto) 0.7 10^3/uL (0.2-0.9) 09/18/22 06:10 Eos # (Auto) 0.3 10^3/uL (0.0-0.8) 09/18/22 06:10 Baso # (Auto) 0.1 10^3/uL (0.0-0.1) 09/18/22 06:10 Nucleated RBC % (auto) 0 % 09/18/22 06:10 Nucleated RBCs # 0.0 /100WBC 09/18/22 06:10 D-Dimer 0.28 ug/mIFEU (0-0.59) 09/17/22 17:11 Sodium 140 mmol/L (136-145) 09/18/22 06:10 Potassium 3.1 mmol/L (3.5-5.1) L 09/18/22 06:10 Chloride 102 mmol/L (98-107) 09/18/22 06:10 Carbon Dioxide 28 mmol/L (22-29) 09/18/22 06:10 Anion Gap 13.1 (5-19) 09/18/22 06:10 BUN 31 mg/dL (6-20) H 09/18/22 06:10 Creatinine 2.4 mg/dL (0.5-0.9) H 09/18/22 06:10 GFR Calculation 22.5 mL/min (90-130) L 09/18/22 06:10 Glucose 78 mg/dL (65-115) 09/18/22 06:10 POC Glucose 84 mg/dL (70-110) 09/18/22 06:08 Estimat Average Glucose 82 09/17/22 17:11 Hemoglobin A1c 4.5 % (4.0-6.0) 09/17/22 17:11 Calculated Osmolality 295 mOsm/kg (285-295) 09/18/22 06:10 Calcium 8.5 mg/dL (8.5-10.5) 09/18/22 06:10 Phosphorus 3.0 mg/dL (2.5-4.5) 09/18/22 06:10 Magnesium 1.4 mg/dL (1.7-2.3) L 09/18/22 06:10 Total Bilirubin 0.3 mg/dL (0.15-1.2) 09/17/22 17:11 AST 18 U/L (0-32) 09/17/22 17:11 ALT 17 U/L (0-33) 09/17/22 17:11 Alkaline Phosphatase 66 U/L (35-105) 09/17/22 17:11 Troponin T Gen 5 ng/L 49 ng/L (0-10) H 09/17/22 21:50 C-Reactive Protein 4.7 mg/L (0.0-4.9) 09/18/22 06:10 Total Protein 7.3 g/dL (6.6-8.7) 09/17/22 17:11 Albumin 4.5 g/dL (3.5-5.2) 09/17/22 17:11 Globulin 2.8 g/dL (1.3-4.6) 09/17/22 17:11 Vitamin B12 853 pg/mL (232-1245) 09/17/22 17:11 TSH 3.51 uIU/mL (0.27-4.20) 09/17/22 17:11 TSH 3.62 uIU/mL (0.27-4.20) 09/17/22 17:11 HCG, Qual Negative (Negative) 09/17/22 16:59 Urine Color Yellow (Yellow) 09/17/22 21:15 Urine Appearance Cloudy (CLEAR) A 09/17/22 21:15 Urine pH 5 (5-7) 09/17/22 21:15 Ur Specific [place] 1.020 (1.005-1.030) 09/17/22 21:15 Urine Protein Trace (Negative) 09/17/22 21:15 Urine Glucose (UA) Norm (Normal) 09/17/22 21:15 Urine Ketones 1+ (Negative) H 09/17/22 21:15 Urine Blood Neg (Negative) 09/17/22 21:15 Urine Nitrate Negative (Negative) 09/17/22 21:15 Urine Bilirubin Neg (Negative) 09/17/22 21:15 Urine Urobilinogen Neg mg/dL (Negative) 09/17/22 21:15 Ur Leukocyte Esterase Trace (Negative) H 09/17/22 21:15 Urine RBC 0-4 /hpf (0-2) H 09/17/22 21:15 Urine WBC 5-10 /hpf (0-5) H 09/17/22 21:15 Ur Eosinophil Smear 0 (0-0) 09/17/22 21:15 Ur Squamous Epith Cells 15-25 /hpf (0-5) H 09/17/22 21:15 Amorphous Sediment Not Reportable 09/17/22 21:15 Urine Bacteria 4+ /hpf (NONE) H 09/17/22 21:15 Urine Eosinophils No eosinophils seen 09/17/22 21:15 Ur Random Sodium 78 mmol/L 09/17/22 21:15 Ur Random Potassium 26 mmol/L 09/17/22 21:15 Ur Random Chloride 67 mmol/L 09/17/22 21:15 Urine Creatinine 135 mg/dL (28-217) 09/17/22 21:15 Urine Opiates Screen Negative ng/mL (Negative) 09/17/22 21:15 Ur Barbiturates Screen Negative ng/mL (Negative) 09/17/22 21:15 Ur Phencyclidine Scrn Negative ng/mL (Negative) 09/17/22 21:15 Ur Amphetamines Screen Positive ng/mL (Negative) H 09/17/22 21:15 U Benzodiazepines Scrn Negative ng/mL (Negative) 09/17/22 21:15 Urine Cocaine Screen Negative ng/mL (Negative) 09/17/22 21:15 U Marijuana (THC) Screen Negative ng/mL (Negative) 09/17/22 21:15 Discharge Plan Discharge Patient Disposition: Admitted As Inpatient Admit Provider: Angelica Parsons Clinical Impression: Closed head injury, Recurrent syncope, Neck pain, JACOB (acute kidney injury), Hypomagnesemia, Hypokalemia Condition: Stable Discharge Diet: Usual diet Discharge Activity: Resume usual activity Coding Level of Care Code ED Real Estate Portfolio Manager for Tere Contreras
--- NOTE | 2022-09-17 16:57 | ECG_ITS ---
[facility] Test Date: 2022-09-17 Pat Name: Dagmar Lai Department: Room: Gender: Female Layout Former: : 1980 Requested By: Jason Sampson Order Number: [id number] Anusha MD: Penny Canela M.D. Measurements Intervals [place] Rate: 89 P: 139 IA: 181 QRS: 85 QRSD: 86 T: 80 QT: 379 QTc: 461 Interpretive Statements SINUS RHYTHM LOW QRS VOLTAGE IN EXTREMITY LEADS [QRS DEFLECTION < 0.5 mV IN LIMB LEADS] POSSIBLE ANTERIOR MYOCARDIAL INFARCTION , PROBABLY OLD [30 ms Q WAVE IN V3/V4, OR R < 0.2 mV IN V4] Compared to ECG 03/16/2019 09:14:50 Low QRS voltage now present Myocardial infarct finding now present Sinus tachycardia no longer present Electronically Signed On 09-18-2022 0:14:29 CDT by Penny Canela M.D. [id number]
--- NOTE | 2022-09-17 16:58 | CTR_ITS ---
PROCEDURE INFORMATION: Exam: CT Head Without Contrast Exam date and time: 09/17/2022 5:35 PM Age: 41 years old Clinical indication: Injury or trauma; Fall; Concussion/head injury; Without loss of consciousness; Additional info: Fall, head injury TECHNIQUE: Imaging protocol: Computed tomography of the head without contrast. Radiation optimization: All CT scans at this facility use at least one of these dose optimization techniques: automated exposure control; mA and/or kV adjustment per patient size (includes targeted exams where dose is matched to clinical indication); or iterative reconstruction. REPORTING DATA: Count of CT and Cardiac NM exams in prior 12 months: This patient has received 0 known CTs and 0 known cardiac nuclear medicine studies in the 12 months prior to the current study. COMPARISON: No relevant prior studies available. RADIATION DOSE METRICS: Total DLP (mGy-cm): 1120 FINDINGS: Brain: Normal. No hemorrhage. Unremarkable white matter. No mass effect. Cerebral ventricles: No ventriculomegaly. Paranasal sinuses: Visualized sinuses are unremarkable. No fluid levels. Mastoid air cells: Visualized mastoid air cells are well aerated. Bones/joints: Unremarkable. No acute fracture. Soft tissues: Unremarkable. CT/CT head wo con* [id number] IMPRESSION: No acute intracranial abnormality.
--- NOTE | 2022-09-17 16:58 | CTR_ITS ---
PROCEDURE INFORMATION: Exam: CT Cervical Spine Without Contrast Exam date and time: 09/17/2022 5:35 PM Age: 41 years old Clinical indication: Injury or trauma; Fall; Blunt trauma; Additional info: Neck pain TECHNIQUE: Imaging protocol: Computed tomography of the cervical spine without contrast. Radiation optimization: All CT scans at this facility use at least one of these dose optimization techniques: automated exposure control; mA and/or kV adjustment per patient size (includes targeted exams where dose is matched to clinical indication); or iterative reconstruction. REPORTING DATA: Count of CT and Cardiac NM exams in prior 12 months: This patient has received [address] and 0 known cardiac nuclear medicine studies in the 12 months prior to the current study. COMPARISON: CR XR chest 1V [id number] 03/16/2019 9:41 AM RADIATION DOSE METRICS: Total DLP (mGy-cm): 246.9 FINDINGS: Bones/joints: The cervical spine is straightened which may be positional or related to spasm. No acute fracture. Multilevel degenerative changes are present. No severe spinal canal stenosis. Lungs: 3 mm solid right upper lobe nodule . Soft tissues: Unremarkable. CT/CT cervical spin wo con* [id number] IMPRESSION: 1. No acute osseous injury. 2. 3 mm solid right upper lobe nodule. For patients at low risk (minimal or absent history of smoking and of other known risk factors), no routine follow-up is indicated. For patients at high risk (history of smoking or of other known risk factors), consider optional CT Chest at 12 months. (Reference: Grace) REFERENCES: Grace Mcwilliams, et al. Guidelines for Management of Incidental Pulmonary Nodules Detected on CT Images: From the Fleischner Society 2017. Radiology. 2017;284(1):228-243.
[2022-09-17] MEDS: sodium chloride 0.9% 1,000 ML 999 ML IV (17:19)
[2022-09-17 17:22] LABS: Basophils # 0.1 10^3/uL (0.0-0.1); Basophils % 1.1 %; Eosinophils # 0.4 10^3/uL (0.0-0.8); Eosinophils % 3.9 %; Hematocrit 34.4 % (37.0-47.0); Hemoglobin 11.3 g/dL (11.5-15.3); Lymphocytes # 3.5 10^3/uL (0.8-4.8); Lymphocytes % 38.9 %; Mean Corpuscular HGB Conc 32.8 g/dL (30.0-36.0); Mean Corpuscular Hemoglobin 27.8 pg (28.0-34.0); Mean Corpuscular Volume 84.7 fl (81-99); Mean Platelet Volume 9.8 fL (7.4-10.4); Monocytes # 0.8 10^3/uL (0.2-0.9); Monocytes % 8.8 %; Neutrophils # 4.19 10^3/uL (1.8-7.7); Neutrophils % 47.1 %; Nucleated Red Blood Cells % 0 %; Platelet Count 277 10^3/cmm (130-400); Red Blood Count 4.06 10^6/uL (4.1-5.3); Red Cell Distribution Width 13.2 % (12.1-15.1); White Blood Count 8.9 10^3/uL (4.0-10.0)
[2022-09-17] MEDS: metoclopramide 5 mg/mL SDV 2 mL 10 MG IVP (17:22)
[2022-09-17] MEDS: diphenhydrAMINE 50 mg/mL SDV 1mL 12.5 MG IVP (17:26)
[2022-09-17] MEDS: ketorolac 30 mg/mL INJ 15 MG IVP (17:30)
[2022-09-17 18:09] LABS: Alanine Aminotransferase 17 U/L (0-33); Albumin Level 4.5 g/dL (3.5-5.2); Alkaline Phosphatase 66 U/L (35-105); Anion Gap 17.1 (5-19); Aspartate Amino Transferase 18 U/L (0-32); Blood Urea Nitrogen 28 mg/dL (6-20); Calcium 9.2 mg/dL (8.5-10.5); Carbon Dioxide 31 mmol/L (22-29); Chloride 96 mmol/L (98-107); Globulin 2.8 g/dL (1.3-4.6); Glomerular Filtration Rate 23.6 mL/min (90-130); Glucose 78 mg/dL (65-115); Osmolality Calculated 296 mOsm/kg (285-295); Potassium 3.1 mmol/L (3.5-5.1); Sodium 141 mmol/L (136-145); Thyroid Stimulating Hormone 3.62 uIU/mL (0.27-4.20); Total Bilirubin 0.3 mg/dL (0.15-1.2); Total Protein 7.3 g/dL (6.6-8.7)
[2022-09-17] MEDS: potassium chloride ER 20 mEq Tablet 40 MEQ PO (18:41)
[2022-09-17] MEDS: magnesium sulfate premix 2 GM/50 ML PIGGYBACK IV (18:42)
[2022-09-17 19:13] LABS: HCG, Serum Qual Negative (Negative)
--- NOTE | 2022-09-17 19:22 | PM.HP ---
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 Patient is stating that she has been experiencing lightheadedness for quite some time, she is describing her dizziness as lightheadedness, she has not noticed any chest pain, nausea, vomiting, diarrhea, UTI symptoms. She has been taking ibuprofen leflunomide, hydroxychloroquine along Lyrica for polyarticular inflammatory arthritis and peripheral neuropathy follows up with Dr. Sheffield. Patient is stating she has not experienced any syncopal events but she is extremely fatigued and lethargic and very upset because her debilitating symptoms In the ER and she was given potassium and magnesium for abnormal electrolytes her kidney function is abnormal as well, creatinine 2.3 Patient is stating that she has not been drinking well but she goes to the bathroom at least 3-4 times a day when she tries to drink water at work but it might be very low intake total in the day Extensive work-up has been done, CCP antibodies less than 16, NING negative, SLE ruled out, immunological work-up reviewed D-dimer unremarkable TSH normal test negative B12 normal Review of Systems Eyes: Denies: change in vision ENMT: Denies: throat pain Card: Denies: chest pain Resp: Denies: dyspnea GI: Denies: abdominal pain : Denies: flank pain or urinary frequency Musc: Denies: neck pain Skin/Breast: Denies: rash Neuro: Denies: headache(s) Psych: Reports: anxiety Endo: Denies: polyuria Beni/Lymph: Denies: easy bruising All/Imm: Denies: urticaria Medications/Allergies Home Medications Medication Instructions Recorded Confirmed Last Taken Type metformin 1,000 mg tablet 1,000 mg PO BID 07/01/19 08/11/22 07/25/21 History alprazolam 0.5 mg tablet (Xanax) 0.5 - 1 mg PO TID PRN anxiety #20 07/20/20 08/11/22 07/26/21 Rx tabs liraglutide 0.6 mg/0.1 mL (18 mg/3 1.8 mg SUBCUT DAILY 08/06/20 08/11/22 07/25/21 History mL) subcutaneous pen injector (Victoza 2-Tulio) ibuprofen 800 mg tablet 800 mg PO TID PRN pain #30 tabs 10/02/20 08/11/22 Unknown Rx cock up splint-bilateral wrist #1 ea 06/26/21 08/11/22 Unknown Rx triamterene 37.5 1 tab PO DAILY 07/25/21 08/11/22 07/25/21 History mg-hydrochlorothiazide 25 mg tablet (Maxzide-25mg) bupropion HCl 150 mg 24 hr tablet, 150 mg PO QAM 01/14/22 08/11/22 Unknown History extended release (Wellbutrin XL) cyclobenzaprine PO 01/14/22 08/11/22 Unknown History furosemide 20 mg tablet (Lasix) 20 mg PO DAILY 01/14/22 08/11/22 Unknown History prednisone 10 mg tablet See Rx Instructions PO DAILY joint 01/14/22 08/11/22 Unknown Rx pain #90 tabs pregabalin 100 mg capsule 100 mg PO BID #60 caps 05/06/22 08/11/22 Unknown Rx hydroxychloroquine 200 mg tablet 200 mg PO BID #60 tabs 08/04/22 08/11/22 Unknown Rx leflunomide 20 mg tablet 20 mg PO DAILY #30 tabs 08/04/22 08/11/22 Unknown Rx pregabalin 150 mg capsule (Lyrica) 150 mg PO BID #60 caps 08/04/22 08/11/22 Unknown Rx fluticasone propionate 50 2 spray intranasal DAILY #16 grams 08/11/22 08/11/22 Unknown Rx mcg/actuation nasal spray,suspension (Flonase Allergy Relief) Allergies Allergy/AdvReac Type Severity Reaction Status Date / Time citalopram [From Celexa] Allergy Intermediate swelling Verified 08/11/22 17:23 all over cephalexin Allergy Vomiting Verified 08/11/22 17:23 latex Allergy Rash Verified 08/11/22 17:23 tramadol Allergy Nausea Verified 08/11/22 17:23 PFSH Acute PFSH: Medical History Anxiety Depression Diabetes mellitus without complication, without long-term current use of insulin Gastroesophageal reflux High risk medication use Immunization counseling Inflammatory arthritis Joint pain Menstrual migraine Muscle spasms of both lower extremities Obesity Polycystic ovarian syndrome Surgical History History of cholecystectomy (~03/1999) Laparoscopic. Performed at [facility] in [place], [place] History of dilation and curettage (12/25/15) Treatment of missed . D&C with suction performed. [place] [facility] [place]. History of dilation and curettage (11/26/16) Treatment of miscarriage. [place]. Cart[place] [facility] [place]. Hx of dilation and curettage (03/24/19) Treatment of Missed . [place]. Cart[place] [facility] [place]. Hx of dilation and curettage (07/23/20) Treatment of blighted ovum. Performed by Dr. Cartwright at [facility] in [place], [place] S/P tubal ligation (10/02/20) Laparoscopic complete salpingectomy. Performed by Dr. Cartwright at [facility] in [place], [place]. Family History Mother Hypertension Grandmother Heart disease Maternal Diabetes Maternal Family/Other Breast cancer Maternal great aunt Diabetes Maternal great-grandmother Family/Other No problems noted. Other Cancer Family history of premature coronary artery disease Denies family history of Rheumatoid arthritis Lupus Chronic kidney disease (CKD) Stroke Social History Smoking and tobacco status: never smoked Alcohol intake: never Current occupation: computer Vitals/I&O/Wt Last Vital Signs Pulse 97 09/17/22 16:42 Resp 18 09/17/22 16:42 BP 138/104 09/17/22 16:42 Pulse Ox 98 09/17/22 16:42 O2 Del Method 09/17/22 16:42 Physical Exam Narrative: Patient is very lethargic and fatigued Awake and alert Clinically dehydrated S1, S2 Nonfocal neuro exam No signs of murmur GCS 15 Patient is awake and alert I could not elicit any nystagmus with Spicewood-Hallpike maneuver Romberg sign negative Patient felt dizzy on getting up from bed No skin rash No active discomfort Data 09/17/22 17:11 09/17/22 17:11 A&P Assessment and plan (1) Dizziness: (2) BPPV (benign paroxysmal positional vertigo): (3) Hypokalemia: (4) Hypomagnesemia: (5) JACOB (acute kidney injury): (6) Neck pain: (7) Inflammatory arthritis: (8) Diabetes mellitus without complication, without long-term current use of insulin: (9) Gastroesophageal reflux: Plan Dizziness/lightheadedness My suspicion for potassium related periodic paralysis is low at this point Nonfocal neuro exam I could not elicit nystagmus with Spicewood-Hallpike We will request another physical therapy/vestibular therapy session in the morning I do believe patient is suffering from BPPV D-dimer unremarkable We will request echo No need of carotid Doppler at this point EKG showing sinus rhythm with low voltage Request single set of troponin at this point Normal B12 and TSH Thyroid peroxidase antibodies positive, subclinical hypothyroidism? Hypokalemia: Potassium repleted Hypokalemia secondary to hypomagnesemia: Magnesium repleted No recent diarrhea or vomiting JACOB Patient creatinine is to be normal Contraction alkalosis, my suspicion for RTA is low, will request urine electrolytes Clinical signs of dehydration We will give fluid hydration overnight and monitor urine output and kidney function Extensive hematological work-up has been done in the past I would not repeat at this point Hemoglobin A1c is 4.5 Patient takes NSAIDs, hydroxychloroquine on daily basis which could be the cause of JACOB along dehydration In case of further worsening she might need nephrology consultation Nephrotoxic agents are hydroxychloroquine, NSAIDs, triamterene hydrochlorothiazide Iron deficiency anemia: Hemoglobin stable Full code Regular diet DVT prophylaxis on board Hold metformin, will reduce the dose of Lyrica because of worsening of kidney function Self interpretation of EKG, previous records reviewed, hematological work-up negative, PCP note was reviewed when she was seen for COVID exposure which was negative, rheumatological work-up reviewed Attestations Medical Necessity Statement*: Anticipate discharge within 48 hours Diagnoses Dizziness R42 BPPV (benign paroxysmal positional vertigo) H81.10 Hypokalemia E87.6 Hypomagnesemia E83.42 JACOB (acute kidney injury) N17.9 Neck pain M54.2 Inflammatory arthritis M19.90 Diabetes mellitus without complication, without long-term current use of insulin E11.9 Gastroesophageal reflux K21.9
--- NOTE | 2022-09-17 19:57 | PC.NURSE ---
report called to caitlin CUEVAS
[2022-09-17 20:03] LABS: D Dimer 0.28 ug/mIFEU (0-0.59)
--- NOTE | 2022-09-17 20:28 | USCV_ITS ---
Dagmar Lai Age: 41 Gender: F : 1980 Exam Date: 09/17/2022 22:10 Ordering Phys: Angelica Parsons MD Technologist: JOO Exam Location: [facility] [place] Indication: syncope s/p fall. No history of cardiac intervention per patient. BP: 136 / 87 HR: 92 Rhythm: Sinus Technical Quality: Adequate MEASUREMENTS (Male / Female) Normal Values 2D ECHO LV Diastolic Diameter PLAX 3.4 cm 4.2 - 5.9 / 3.9 - 5.3 cm LV Systolic Diameter PLAX 2.4 cm IVS Diastolic Thickness 1.2 cm 0.6 - 1.0 / 0.6 - 0.9 cm IVS Systolic Thickness 1.5 cm LVPW Diastolic Thickness 1.4 cm 0.6 - 1.0 / 0.6 - 0.9 cm LVPW Systolic Thickness 1.1 cm LVOT Diameter 2.3 cm LV Ejection Fraction 2D Teich 58.8 % LV Ejection Fraction MOD 2C 67.8 % LV Ejection Fraction 2C AL 69.0 % LA Diameter 2.7 cm LA Width 2.5 cm LA Height 3.9 cm RA Width 2.7 cm RA Height 4.3 cm Aorta at Sinotubular Diameter 2.7 cm IVC Diameter 1.4 cm M-MODE Aortic Annulus Diameter 3.1 cm LA Ao Ratio MM 0.9 MV E Point Septal Separation 0.4 cm DOPPLER AV Peak Velocity 132.0 cm/s LVOT Peak Velocity 126.0 cm/s AV Area Cont Eq vti 3.1 cm squared AV Area Cont Eq pk 3.9 cm squared MV Area PHT 4.6 cm squared Mitral E to A Ratio 0.9 MV E' Velocity 65.5 cm/s Mitral E to MV E' Ratio 9.0 Mitral E to LV E' Lateral Ratio 8.4 Mitral E to LV E' Septal Ratio 9.7 TV Peak E Velocity 81.0 cm/s PV Peak Velocity 97.0 cm/s RV Acceleration Time 0.1 s RV Ejection Time 0.3 s RV AcT/ET 0.4 FINDINGS Left Ventricle Left ventricle is normal in size. LV systolic function is normal with EF of 60 to 65%. No regional wall motion normalities are seen. Right Ventricle Normal in size and function Right Atrium Normal in size Left Atrium Normal in size Mitral Valve Structurally normal mitral valve. Trace mitral regurgitation Aortic Valve Structurally normal aortic valve Tricuspid Valve Trace tricuspid regurgitation. Insufficient TR jet to calculate RVSP Pulmonic Valve Not well-visualized Pericardium Normal Aorta Normal in size IVC Appears to be normal CONCLUSIONS LV systolic function is normal with EF of 60-65% Trace mitral regurgitation Trace tricuspid regurgitation No comparison studies are available Malcolm Pagan MD (Electronically Signed) Final Date: 18 September 2022 11:29 S
[2022-09-17 21:06] LABS: Estmated Average Glucose 82; Hemoglobin A1C 4.5 % (4.0-6.0)
[2022-09-17 21:20] LABS: Thyroid Stimulating Hormone 3.51 uIU/mL (0.27-4.20); Vitamin B12 853 pg/mL (232-1245)
[2022-09-17] MEDS: sodium chloride 0.9% 1,000 ML 75 ML IV (21:35)
[2022-09-17] MEDS: enoxaparin 40 mg/0.4 mL Syringe SUBCUT (21:36)
[2022-09-17 22:25] LABS: Urine Appearance Cloudy (CLEAR); Urine Color Yellow (Yellow); pH Urine 5 (5-7)
[2022-09-17 22:26] LABS: Add Urine Microscopic? YES; Bacteria Urine 4+ /hpf; Bilirubin Urine Neg (Negative); Blood Urine Neg (Negative); Glucose Urine UA Norm (Normal); Ketones Urine 1+ (Negative); Leukocyte Esterase Urine Trace (Negative); Nitrate Urine Negative (Negative); Protein Urine Trace (Negative); RBC Urine 0-4 /hpf (0-2); Squamous Epithelial Cell Urine 15-25 /hpf (0-5); Urobilinogen Urine Neg (Negative)
[2022-09-17 22:27] LABS: Add Urine Culture? No
[2022-09-17 22:28] LABS: Amphetamines Screen Urine Positive (Negative); Barbiturates Screen Urine Negative (Negative); Benzodiazepines Screen Urine Negative (Negative); Cocaine Screen Urine Negative (Negative); Opiate Screen Urine Negative (Negative); PCP Screen Urine Negative (Negative); THC Screen Urine Negative (Negative)
[2022-09-17 22:29] LABS: Troponin T (5th) Once 49 ng/L (0-10)
[2022-09-17] MEDS: metoprolol tartrate 25 mg Tablet PO (23:03)
[2022-09-18] VITALS (9 sets, daily range): BP systolic 92–136; BP diastolic 62–84; PULSE 72–86; RESP 15–18; TEMP 36.4–37; O2SAT 96–100
[2022-09-18 06:34] LABS: Basophils # 0.1 10^3/uL (0.0-0.1); Basophils % 1.2 %; Eosinophils # 0.3 10^3/uL (0.0-0.8); Eosinophils % 3.9 %; Hematocrit 32.7 % (37.0-47.0); Hemoglobin 10.6 g/dL (11.5-15.3); Lymphocytes # 2.8 10^3/uL (0.8-4.8); Mean Corpuscular HGB Conc 32.4 g/dL (30.0-36.0); Mean Corpuscular Hemoglobin 27.5 pg (28.0-34.0); Mean Corpuscular Volume 84.9 fl (81-99); Mean Platelet Volume 10.2 fL (7.4-10.4); Monocytes # 0.7 10^3/uL (0.2-0.9); Monocytes % 9.2 %; Neutrophils # 4.06 10^3/uL (1.8-7.7); Neutrophils % 50.6 %; Nucleated Red Blood Cells % 0 %; Platelet Count 243 10^3/cmm (130-400); Red Blood Count 3.85 10^6/uL (4.1-5.3); Red Cell Distribution Width 13.2 % (12.1-15.1)
[2022-09-18 06:54] LABS: Anion Gap 13.1 (5-19); Blood Urea Nitrogen 31 mg/dL (6-20); C Reactive Protein 4.7 mg/L (0.0-4.9); Calcium 8.5 mg/dL (8.5-10.5); Carbon Dioxide 28 mmol/L (22-29); Chloride 102 mmol/L (98-107); Glomerular Filtration Rate 22.5 mL/min (90-130); Glucose 78 mg/dL (65-115); Magnesium 1.4 mg/dL (1.7-2.3); Osmolality Calculated 295 mOsm/kg (285-295); Potassium 3.1 mmol/L (3.5-5.1); Sodium 140 mmol/L (136-145)
[2022-09-18 08:04] LABS: Glucose Point of Care 84 mg/dL (70-110)
[2022-09-18] MEDS: pregabalin 150 mg Capsule PO (09:42)
[2022-09-18] MEDS: amlodipine 10 mg Tablet PO (09:42)
[2022-09-18] MEDS: metoprolol tartrate 25 mg Tablet PO (09:42)
[2022-09-18] MEDS: sennosides-docusate Tablet 1 TAB PO (09:42)
--- NOTE | 2022-09-18 10:19 | CT_ITS ---
WS: [id number] CT ABDOMEN AND PELVIS NONCONTRAST HISTORY: Stephon TECHNIQUE: Imaging performed through the abdomen and pelvis. Coronal and sagittal reformats are submi tted. All CT scans at [facility] use at least one of these dose optimization techniques: auto mated exposure control; mA and/or kV adjustment per patient size (includes targeted exams where dose is matched to clinical indication); or iterative reconstruction. DLP: 788.68 mGy.cm COMPARISON: None available. Lower thorax: Lung bases are clear. Visualized heart is normal. No hiatal hernia. Liver: Normal size liver. No mass or bile duct dilatation. Gallbladder: Prior cholecystectomy. Pancreas: Normal size and attenuation. Normal pancreatic duct. No pancreatitis or mass. Spleen: Normal. Adrenal glands: Normal. No mass. Right kidney: Normal size kidney with no mass or hydronephrosis. Left kidney: Normal size kidney with no mass or hydronephrosis. Aorta: Mild atherosclerosis abdominal aorta with no aneurysm. No free fluid, intraperitoneal air or significant lymphadenopathy. GI tract: Normal noncontrast imaging of the stomach, small bowel and colon. No obstruction or wall th ickening. Normal appendix. Abdominal wall: No hernia. Injection sites in the LEFT abdominal wall. Pelvis: Midline uterus. Mildly lobulated contour may represent fibroids. 3.3 cm LEFT ovarian cyst. Osseous structures: Unremarkable. CT/CT abdomen pelvis wo con [id number] IMPRESSION: 1. Prior cholecystectomy. 2. No renal obstruction or atrophy. 3. No GI tract obstruction. Normal appendix. 4. Small LEFT ovarian cyst.
[2022-09-18] MEDS: potassium chloride ER 20 mEq Tablet 40 MEQ PO (13:17)
[2022-09-18] MEDS: sodium chloride 0.9% 1,000 ML 75 ML IV (13:17)
--- NOTE | 2022-09-18 13:54 | PM.PN ---
Subjective Subjective: Admitted overnight. H&P and labs appreciated. Seen with family at bedside. Patient seen sitting up in chair. Denies any nausea, vomiting, headache. Patient seen by physical therapy and found to be orthostatic positive. Patient states she has been having difficulty with dizziness, unsteadiness on her feet ongoing for last 2 to 3 months getting worse gradually and yesterday she fell. States she was recently started on medications around a year ago for probably inflammatory arthritis. Takes 800 mg of ibuprofen twice daily for the last 1 year. Denies any further changes in medications. Vitals/I&O/Wt Last Vital Signs Temp 98.4 F 09/18/22 12:00 Pulse 83 09/18/22 12:00 Resp 15 09/18/22 12:00 BP 116/84 09/18/22 12:00 Pulse Ox 97 09/18/22 12:00 O2 Del Method 09/18/22 12:00 09/17/22 09/18/22 09/18/22 22:59 06:59 14:59 Intake Total 1290 / 1290 120 / 1410 1360 / 1360 Balance 1290 / 1290 120 / 1410 1360 / 1360 Physical Exam Narrative: General: No acute distress, AO x3, anxious, tearful HEENT: PERRLA, pupils bilaterally equal and reactive Chest: Normal vesicular breath sounds, no added sounds, equal good air entry bilaterally CVS: S1-S2 regular, no murmurs, no tachycardia, no gallops, no rubs Abdomen: Soft, nontender, no organomegaly, bowel sounds present Neuro: No focal deficits, no facial deformity, AO x3, power 5/5 in all limbs Data 09/18/22 06:10 09/18/22 06:10 A&P Assessment and plan (1) JACOB (acute kidney injury): (2) Dizziness: (3) Hypokalemia: (4) Hypomagnesemia: (5) Diabetes mellitus without complication, without long-term current use of insulin: (6) Neck pain: (7) Inflammatory arthritis: (8) Gastroesophageal reflux: (9) Orthostatic lightheadedness: (10) Situational anxiety: (11) BPPV (benign paroxysmal positional vertigo): Plan Dizziness/lightheadedness: Most likely in setting of dehydration leading to orthostatic hypotension. CT head negative for any acute abnormality. Nonfocal neuro examination. Unlikely related to hyperkalemia. No nystagmus with Nahid-Hallpike. BPPV very less likely. Continue with telemetry. Vitamin B12, TSH levels were normal. Could be secondary to polypharmacy in setting of worsening renal function specially pregabalin 150 mg twice daily along with Xanax and bupropion. Along with use of phentermine as an outpatient. Reduce dose of Lyrica to 75 mg twice daily, Xanax 0.5 mg 3 times daily Continue with IV hydration with normal saline at 100 cc/h. Urine drug screen positive for amphetamines: Most likely false positive in setting of phentermine. Continue to monitor. Acute kidney injury: Most likely in setting of daily ibuprofen, diuretics including triamterene hydrochlorothiazide Lasix along with poor oral intake lately. Medical reconciliation done for nephrotoxic drugs. CT abdomen pelvis to rule out obstructive nephropathy. Check urine lites, urine creatinine, urine eosinophils. Urinalysis appreciated. IV fluids as above. Monitor BMP daily for now. Monitor urine output. Hypokalemia: Replete with 40 mg of oral potassium. Replete magnesium. Type 2 diabetes mellitus: A1c 4.5. Hold off on insulin sliding scale. Full code. Regular diet. Heparin 5000 every 12 hourly for DVT prophylaxis Famotidine for PUD prophylaxis Attestations Medical Necessity Statement*: Dagmar Lai is being changed to inpatient status as stay will now exceed 2 midnights. Ongoing hospital care is necessary for further management of acute kidney injury requiring IV hydration, orthostatic lightheadedness Diagnoses JACOB (acute kidney injury) N17.9 Dizziness R42 Hypokalemia E87.6 Hypomagnesemia E83.42 Diabetes mellitus without complication, without long-term current use of insulin E11.9 Neck pain M54.2 Inflammatory arthritis M19.90 Gastroesophageal reflux K21.9 Orthostatic lightheadedness R42 Situational anxiety F41.8 BPPV (benign paroxysmal positional vertigo) H81.10
[2022-09-18 14:34] LABS: Potassium, Radom Urine 26 mmol/L; Urine Creatinine 135 mg/dL (28-217); Urine Random Chloride 67 mmol/L; Urine Random Sodium 78 mmol/L
[2022-09-18 15:25] LABS: Eosinophil Urine No Eosinophils Seen; Urine Eosinophil Count 0 (0-0)
[2022-09-18] MEDS: magnesium sulfate premix 2 GM/50 ML PIGGYBACK IV (16:35)
[2022-09-18] MEDS: pregabalin 75 mg Capsule PO (16:35)
[2022-09-18 20:25] LABS: Glucose Point of Care 160 mg/dL (70-110)
[2022-09-18] MEDS: ALPRAZolam 0.5 mg Tablet PO (22:39)
[2022-09-19] VITALS (7 sets, daily range): BP systolic 99–144; BP diastolic 64–85; PULSE 66–89; RESP 15–18; TEMP 36.4–36.7; O2SAT 97–100
[2022-09-19] MEDS: sodium chloride 0.9% 1,000 ML 75 ML IV (04:11)
[2022-09-19 04:25] LABS: Basophils # 0.1 10^3/uL (0.0-0.1); Basophils % 1.1 %; Eosinophils # 0.3 10^3/uL (0.0-0.8); Eosinophils % 3.3 %; Hematocrit 32.8 % (37.0-47.0); Hemoglobin 10.4 g/dL (11.5-15.3); Lymphocytes # 3.3 10^3/uL (0.8-4.8); Mean Corpuscular HGB Conc 31.7 g/dL (30.0-36.0); Mean Corpuscular Hemoglobin 28.1 pg (28.0-34.0); Mean Corpuscular Volume 88.6 fl (81-99); Mean Platelet Volume 9.8 fL (7.4-10.4); Monocytes # 0.4 10^3/uL (0.2-0.9); Monocytes % 5.6 %; Neutrophils # 3.78 10^3/uL (1.8-7.7); Neutrophils % 47.7 %; Nucleated Red Blood Cells % 0 %; Platelet Count 245 10^3/cmm (130-400); Red Cell Distribution Width 13.1 % (12.1-15.1); White Blood Count 7.9 10^3/uL (4.0-10.0)
[2022-09-19 04:48] LABS: Alanine Aminotransferase 13 U/L (0-33); Albumin Level 3.5 g/dL (3.5-5.2); Alkaline Phosphatase 47 U/L (35-105); Anion Gap 13.3 (5-19); Aspartate Amino Transferase 16 U/L (0-32); Blood Urea Nitrogen 17 mg/dL (6-20); Carbon Dioxide 25 mmol/L (22-29); Chloride 107 mmol/L (98-107); Globulin 2.5 g/dL (1.3-4.6); Glomerular Filtration Rate 55.3 mL/min (90-130); Glucose 89 mg/dL (65-115); Osmolality Calculated 295 mOsm/kg (285-295); Potassium 3.3 mmol/L (3.5-5.1); Sodium 142 mmol/L (136-145); Total Bilirubin 0.2 mg/dL (0.15-1.2)
[2022-09-19 05:15] LABS: Folate Level 6.1 ng/mL (4.8-37.3)
[2022-09-19 06:26] LABS: Glucose Point of Care 95 mg/dL (70-110)
[2022-09-19] MEDS: pregabalin 75 mg Capsule PO (10:01)
[2022-09-19] MEDS: sennosides-docusate Tablet 1 TAB PO (10:01)
[2022-09-19 11:35] LABS: Glucose Point of Care 83 mg/dL (70-110)
[2022-09-19 13:39] LABS: C Reactive Protein 3.1 mg/L (0.0-4.9); Complement C3 102 mg/dL (90-180)
[2022-09-19 13:56] LABS: Erythrocyte Sedimentation Rate 2 mm/hr (0-15)
[2022-09-19] MEDS: buPROPion XL (24 HR) 150 mg Tablet PO (14:17)
[2022-09-19] MEDS: NON-FORMULARY MEDICATION (Leflunomide 20 mg tablet) 20 EACH PO (14:17)
--- NOTE | 2022-09-19 15:48 | P.PN_ITS ---
Subjective Subjective: Patient history this hospital stay and previous has been reviewed within EMR as well as with her and her mother. She has had clinical decline for some time. She was referred to rheumatology last fall with reported positive NING that was originally identified in November 2021. Repeat NING titer here was unremarkable but she was noted to have positive thyroid peroxidase and slightly elevated CH 50 levels. Remainder of NING panel was normal. She has had 1 episode that I was able to find of a slightly elevated TSH but remainder of thyroid function studies have been normal including most recent TSH levels. No personal history of Geovanny's or Graves' disease has been identified. She has had progressive joint pains involving both small and large joints, stiffness, weakness, muscle pain, falls and has also had issues with significant upper extremity paresthesias and pain in her neck. She describes intermittent incontinence of both bowel and bladder function as well as effect on libido. S he describes cold intolerance and feeling like her skin is in hell. She continues to have significant numbness and tingling of both hands despite having had carpal tunnel release. She tends to do better when she is on steroids. She has been on leflunomide and hydroxychloroquine with some improvement though not resolution of her symptoms. She follows with Dr. Holt outpatient, with last visit on August 04. Last course of steroids was in July of this year. In the day preceding admission she had headache and nausea and vomiting attributed to a concussion from hitting her head when she fell. She is on Mounjaro for diabetes. She is only taken phentermine this time for a kick sta rt with weight loss. She has taken it in the past without any side effects of concern. Last use of Lasix was a week ago. She tries to drink more fluids but often has challenges with this at work. She had been encouraged to increase fluid intake by primary care provider. I talked to her and later her mom also reviewing concerns and findings and plans of care options. Both the patient and her mother been frustrated with lack of a definitive diagnosis along with continued decline from their point of view. Explained acute events likely in part to dehydration and renal dysfunction. We talked about medicines that might contribute including impact of [id number] medications such as ibuprofen and not getting enough fluid intake. I also reviewed findings from work-up that has been done previously and various work-up and management that has been initiated because of her symptoms. Vitals/I&O/Wt Last Vital Signs Temp 97.6 F 09/19/22 15:35 Pulse 89 09/19/22 15:35 Resp 18 09/19/22 15:35 BP 144/85 09/19/22 15:35 Pulse Ox 99 09/19/22 15:35 O2 Del Method 09/19/22 15:35 09/19/22 09/19/22 09/19/22 06:59 14:59 22:59 Intake Total 1240 / 3130 480 / 480 Balance 1240 / 3130 480 / 480 Physical Exam Narrative: Awake and alert, sitting up in bed. Face is symmetric, extraocular movements are intact. Pulses are 2+ and equal. Hands are puffy at MCPs and PIPs without warmth or erythema, tender to palpation here and at the wrist. Feet are tender to palpation. Skin is dry. Moves all extremities, speech is clear. Small area tenderness palpation in the left parietal occipital area where she hit her head the other day. Data 09/19/22 04:06 09/19/22 04:06 Micro: Microbiology 09/17/22 21:15 Bacterial Antigens - Final Urine Kidney 09/17/22 21:15 Legionella Urinary Antigen - Final Unknown Source A&P Assessment and plan (1) Recurrent syncope: Has been an intermittent problem over time. This particular episode I think is probably secondary to acute kidney injury and dehydration along with electrolyte abnormalities. Medications such as phentermine, diuretics, muscle relaxers and such along with NSAIDs could be contributing. No further episodes have been noted. (2) Closed head injury: With concussion, nausea improved, headache persist (3) JACOB (acute kidney injury): Improving with hydration. Appears to be secondary to prerenal. We talked about minimizing diuretic therapy and NSAID therapy currently. While other medicines may not directly contribute to renal dysfunction, they may stick around longer and therefore have more side effects in the setting of acute kidney injury. (4) Hypomagnesemia: Magnesium levels as low as 1 at admission. Continues to be low. (5) Hypokalemia: Initial potassium 3.0. Continues to be low. (6) Dizziness: Secondary to effects of the had patient and electrolyte abnormalities plus renal dysfunction acutely though there is an element that has been going on for some time. She describes it as feeling like her head after going up and down a roller coaster. Often associated with a tunnel vision and sensation that she is going to pass out. At times does seem orthostatic however appears reproducible other times with movement of the neck. (7) Orthostatic lightheadedness: Present at admission secondary to dehydration (8) Neck pain: Chronic, degenerative changes noted on CT imaging this admission but no central canal stenosis. She does describe chronic paresthesias that go down her arms as to stem from neck discomfort. (9) Paresthesia of upper extremity: Bilateral upper extremity. Has paresthesias of both of her wrist and has been identified as having bilateral carpal tunnel syndrome. Had no significant improvement in left wrist and hand paresthesias after carpal tunnel release. (10) Inflammatory arthritis: Follows with Dr. Holt. On leflunomide and hydroxychloroquine chronically along with intermittent burst of steroids. Arthritis involves small joints of hands and feet, bilateral hips and cervical spine. Has muscle pain and weakness also. She is RA negative, CCP negative, NING negative. 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 May have some early nephropathy and neuropathy or other autonomic instability contributing to her overall symptoms and presentation despite current good control. I was able to identify that back in 2019 hemoglobin A1c was as high as 9.4. (14) Polycystic ovarian syndrome: On chronic metformin Plan Has lost 62 pounds since the fall 2021 Intermittent high blood pressures, not chronically on antihypertensives History of anxiety and depression on as needed alprazolam and bupropion extended release Anemia, normocytic, suspect iron deficiency We will do a short prednisone taper Arava was continued today We will continue Plaquenil Change IV fluids to half-normal saline plus potassium Check orthostatic vital signs Replace magnesium and potassium Recheck electrolytes in the morning Check CK level With acute renal failure we will repeat NING profile and complements; spot urine protein and creatinine; inflammatory markers I spoke with Dr. Paul and he will follow-up pending labs; patient can call next week to discuss potential follow-up Avoid renal toxic medications for now Tylenol for breakthrough pain With complaints of neck pain and bilateral upper extremity paresthesias that did not respond to initial carpal tunnel release would benefit from outpatient MRI as long as renal function remains stable. This should include cervical and with reports of intermittent incontinence would also consider thoracic and lumbar imaging in this patient with progressive decline in function over the last year or 2 identified as having an inflammatory arthritis and muscular pain but experiencing other concerning potentially neuropathic symptoms without a specifically identified etiology as of yet. Concern is for as of yet unidentified autoimmune process despite work-up to date. Carotid ultrasound Hold home Mounjaro and metformin Changed to low-dose sliding scale in the interim Encouraged discontinuation of phentermine Monitor blood pressures We will resume home Lyrica Home alprazolam and bupropion have been continued Lasix is currently held, recommended eating extremities for now Check TIBC Supportive care otherwise Findings, concerns and plans were discussed with patient and her mother and both were given an opportunity to ask questions At discharge, which I expect will be tomorrow unless acute change overnight, anticipate follow-up with primary care provider, follow-up chemistries to monitor renal function and electrolytes, referral to endocrinology, continued follow-up with rheumatology. Attestations Medical Necessity Statement*: Requires ongoing inpatient stay for continued fluids and electrolyte replacement and monitoring with resumption of some medications Coding Level of Care Code 03563 High Time for a total of 65 minutes, includes reviewing past or interval history, examining/interviewing patient, placing orders, counseling patient/family/other support, discussing plan of care with staff, communicating with other healthcare providers and documenting encounter Diagnoses Recurrent syncope R55 Closed head injury S09.90XA JACOB (acute kidney injury) N17.9 Hypomagnesemia E83.42 Hypokalemia E87.6 Dizziness R42 Orthostatic lightheadedness R42 Neck pain M54.2 Paresthesia of upper extremity R20.2 Inflammatory arthritis M19.90 Anti-TPO antibodies present R76.8 High risk medication use Z79.899 Diabetes mellitus, type II E11.9 Polycystic ovarian syndrome E28.2
--- NOTE | 2022-09-19 16:26 | USR_ITS ---
PROCEDURE INFORMATION: Exam: US Duplex Bilateral Extracranial Arteries, Carotid Arteries Exam date and time: 09/19/2022 6:39 PM Age: 41 years old Clinical indication: Dizziness; Additional info: Recurrent dizziness TECHNIQUE: Imaging protocol: Real-time Duplex ultrasound scan of the bilateral carotid and vertebral arteries combining romero scale, color Doppler and spectral waveform analysis. Bilateral exam. Exam focused on the carotid arteries. COMPARISON: CT cervical spin wo con* [id number] 09/17/2022 5:35 PM FINDINGS: Right common carotid artery: Unremarkable. No occlusion or stenosis. Waveforms are normal. Right internal carotid artery: Unremarkable. No occlusion or stenosis. Waveforms are normal. Right ICA/CCA ratio: Within normal limits. Right external carotid artery: No stenosis in the origin. Right vertebral artery: Unremarkable. Antegrade flow. Left common carotid artery: Unremarkable. No occlusion or stenosis. Waveforms are normal. Left internal carotid artery: Mild calcified plaque proximally. No occlusion or stenosis. Waveforms are normal. Left ICA/CCA ratio: Within normal limits. Left external carotid artery: No stenosis in the origin. Left vertebral artery: Unremarkable. Antegrade flow. US/CV carotid duplex BI* [id number] IMPRESSION: 1. No right carotid arterial stenosis. 2. Mild calcified plaque in the proximal left internal carotid artery with significantly less than 50% stenosis. REFERENCES: SRU CRITERIA. The degree of internal carotid artery stenosis is based on criteria defined by the Society of [employer] in [employer]tras[employer] (SRU). Normal is no stenosis. Mild is less than 50% stenosis. Moderate is 50-69% stenosis. Severe is greater than 69% stenosis to near occlusion. Near occlusion is a markedly narrowed lumen. Total occlusion is no detectable patent lumen.
[2022-09-19 17:06] LABS: Glucose Point of Care 95 mg/dL (70-110)
[2022-09-19] MEDS: predniSONE 20 mg Tablet PO (17:30)
[2022-09-19] MEDS: magnesium lactate 84 mg Tablet PO (17:30)
[2022-09-19] MEDS: pregabalin 150 mg Capsule PO (17:30)
[2022-09-19] MEDS: potassium chloride ER 20 mEq Tablet 40 MEQ PO (17:31)
[2022-09-19] MEDS: sodium chlor 0.45% +KCl 20 mEq 20 MEQ/1,000 ML BAG 75 MEQ IV (17:31)
[2022-09-19] MEDS: magnesium sulfate premix 2 GM/50 ML PIGGYBACK IV (17:31)
[2022-09-19 22:35] LABS: Glucose Point of Care 101 mg/dL (70-110)
[2022-09-19] MEDS: ALPRAZolam 0.5 mg Tablet PO (23:11)
[2022-09-20] VITALS (8 sets, daily range): BP systolic 92–134; BP diastolic 61–90; PULSE 70–96; RESP 16–18; TEMP 36.6–36.7; O2SAT 95–98
[2022-09-20] MEDS: buPROPion XL (24 HR) 150 mg Tablet PO (05:25)
[2022-09-20 05:36] LABS: Creatinine Urine, Random 85 mg/dL (28-217)
[2022-09-20 05:42] LABS: Urine Protein Random 14 mg/dL
[2022-09-20 06:53] LABS: Anion Gap 9.4 (5-19); Blood Urea Nitrogen 14 mg/dL (6-20); Calcium 8.5 mg/dL (8.5-10.5); Carbon Dioxide 23 mmol/L (22-29); Chloride 101 mmol/L (98-107); Creatine Phosphokinase 99 U/L (26-192); Glomerular Filtration Rate 69.7 mL/min (90-130); Glucose 153 mg/dL (65-115); Iron 91 ug/dL (37-145); Magnesium 1.7 mg/dL (1.7-2.3); Osmolality Calculated 272 mOsm/kg (285-295); Percent Saturation 42.3 % (20-50); Phosphorus 1.9 mg/dL (2.5-4.5); Potassium 4.4 mmol/L (3.5-5.1); Sodium 129 mmol/L (136-145); Total Iron Binding Capacity 215 mcg/dl; Unsaturated Iron Binding 124 ug/dL (112-347)
[2022-09-20 08:03] LABS: Glucose Point of Care 131 mg/dL (70-110)
[2022-09-20] MEDS: pregabalin 150 mg Capsule PO (08:20)
[2022-09-20] MEDS: predniSONE 20 mg Tablet PO (08:21)
[2022-09-20] MEDS: hydroxychloroquine 200 mg Tablet PO (08:21)
[2022-09-20] MEDS: sennosides-docusate Tablet 1 TAB PO (08:21)
[2022-09-20] MEDS: potassium chloride ER 20 mEq Tablet PO (08:21)
[2022-09-20] MEDS: magnesium lactate 84 mg Tablet PO (08:21)
[2022-09-20] MEDS: fluticasone nasal spray 16gm Btl 2 SPRAY INTRANASAL (08:22)
[2022-09-20] MEDS: NON-FORMULARY MEDICATION (Leflunomide 20 mg tablet) 20 EACH PO (08:25)
[2022-09-20 11:41] LABS: Glucose Point of Care 142 mg/dL (70-110)
--- NOTE | 2022-09-20 16:17 | P.DS_ITS ---
Discharge Providers Date of Admission: 09/18/22 10:44 Date of Discharge: September 20, 2022 Attending Provider at Admission: Angelica Parsons MD Attending Provider at Discharge: Shantelle Navarro MD Primary Care Provider: Carmelina Dailey APN Diagnoses at Discharge Discharge Diagnosis (1) Recurrent syncope: Status: Acute (2) Closed head injury: Status: Acute (3) JACOB (acute kidney injury): Status: Acute (4) Hypomagnesemia: Status: Acute (5) Hypokalemia: Status: Acute (6) Hypophosphatemia: Status: Acute (7) Dizziness: Status: Acute (8) Orthostatic lightheadedness: Status: Acute (9) Neck pain: Status: Chronic (10) Paresthesia of upper extremity: Status: Chronic (11) Inflammatory arthritis: Status: Chronic Permanent problem details: RA negative, anti CCP negative, NING negative (12) Anti-TPO antibodies present: Status: Chronic (13) Diabetes mellitus, type II: Status: Chronic (14) Polycystic ovarian syndrome: Status: Chronic (15) High risk medication use: Status: Chronic Permanent problem details: leflunomide and hydroxychloroquine, intermittent steroids Reason for Visit Reason for Visit: fall/head injury/headache Brief History: HPI per Dr Parsons: Dagmar Lai is a 41 year old female 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 Patient is stating that she has been experiencing lightheadedness for quite some time, she is describing her dizziness as lightheadedness, she has not noticed any chest pain, nausea, vomiting, diarrhea, UTI symptoms.? She has been taking ibuprofen leflunomide, hydroxychloroquine along Lyrica for polyarticular inflammatory arthritis and peripheral neuropathy follows up with Dr. Sheffield.? Patient is stating she has not experienced any syncopal events but she is extremely fatigued and lethargic and very upset because her debilitating symptoms In the ER and she was given potassium and magnesium for abnormal electrolytes her kidney function is abnormal as well, creatinine 2.3 Patient is stating that she has not been drinking well but she goes to the bathroom at least 3-4 times a day when she tries to drink water at work but it might be very low intake total in the day Extensive work-up has been done, CCP antibodies less than 16, NING negative, SLE ruled out, immunological work-up reviewed D-dimer unremarkable TSH normal test negative B12 normal Hospital Course Hospital Course Mrs. Lai was admitted to a medical bed. She received IV fluids and electrolyte replacement. Gradually her renal function improved with treatment. Multiple medications were held as potential contributors including diuretic therapy which had not been taken for about a week prior to admission, NSAID therapy and initially her other DMARDs therapies and pain control. Neurological exam at admission was nonfocal and suspicion was for benign paroxysmal positional vertigo. Later during the hospital stay patient described significant paresthesias involving both upper extremities beyond the bilateral carpal tunnel syndrome she had previously been diagnosed with. The paresthesias can come on suddenly and quite severely particularly with movement of her neck. These episodes occur apart from the dizzy spells which have been more frequently of late. She has lost 62 pounds over the last 6 months or so. She is on Mounjaro and had been taking phentermine. With her slowly worsening renal function medications such as Lyrica may have had a longer impact before her next dose was due. Between dehydration, multiple electrolyte abnormalities, acute kidney injury and several medications I think the escalation of late is likely from this. Cannot fully rule out BPPV component. Patient is not currently experiencing similar symptoms and feels better. With holding of her leflunomide and hydroxychloroquine along with NSAIDs, she had increased discomfort in her hands and feet as well as her hips consistent with prior flares of her inflammatory arthritis. I did discuss with Dr. Hancock. With the new acute kidney injury episode, complements were rechecked as well as spot urine protein and creatinine. Again these were unremarkable. Rheumatoid factor was normal. NING panel and anti-CCP are pending. Sed rate 2 and CRP was 4.7>3.1. CK was normal at 99. With increased joint pains and not having her medicines for a couple of days I did go on and initiated taper of prednisone. Leflunomide was resumed. Hydroxychloroquine was resumed. After renal function normalized I did resume her Lyrica. I have asked her to hold Lasix for 2 weeks, stop taking NSAIDs for the same timeframe and to discontinue phentermine. May also have to consider holding cyclobenzaprine as another potential contributor to vertigo but I do think electrolyte and renal abnormalities were the primary issues this time. With recent acute kidney injury metformin is being held. Hemoglobin A1c down to 4.5. At this point in time she can probably come off of metformin and less it is being continued for her history of polycystic ovarian syndrome. We discussed Mounjaro dosing and recommendation is to take 5 mg currently rather than the 10 she had been on. During her dose escalation, the 7.5 mg dosing of Mounjaro was not available due to nationwide shortages so she went from 5-10. This is also a potential contributor secondary to potential side effects. Mrs. Lai has been referred to endocrinology previously but not had an appointment yet. With thyroid peroxidase antibody positive, diabetes and polycystic ovarian syndrome may benefit from endocrinology consultation. During the course of the hospital stay patient described intermittent incontinence of bowel and bladder function, sexual dysfunction, some difficulty maintaining activities of daily living and what has felt like progressive symptoms over the last year or 2 without a clear answer. I reviewed with her and her mother work-up that has been done previously along with the fact that some diagnoses, particularly those that might be autoimmune in nature can take some time to evolve to a point that they can be identified. For this acute presentation, recommended that we see how she does after medication changes and with hydration. Encouraged her to take a multivitamin regularly and to work on getting a balanced diet. With the upper extremity paresthesias and neck pain, cervical spine film was done but demonstrated no evidence of acute osseous injury. 3 mm right upper lobe nodule was noted. Patient has never smoked putting her at low risk so no routine follow-up is recommended. With incontinence MRI outpatient could be considered if symptoms continue to be present despite treatment and recommendations from this hospital stay. She did have a CT of her head that revealed no abnormalities. A CT of the abdomen and pelvis showed evidence of prior cholecystectomy, no GI obstruction, normal appendix, small left ovarian cyst and no evidence of renal obstruction or atrophy. Lungs were clear echocardiogram showed normal left ventricular systolic function with trace mitral regurgitation and trace tricuspid regurgitation. A carotid ultrasound showed mild calcified plaque in the proximal left internal carotid artery with significantly less than 50% stenosis and no right carotid artery stenosis., Patient was feeling better. She had some mild hyponatremia that I attribute to hydration received during admission. Medication plans were reviewed with her. She will need follow-up with her primary care provider. She was not as acutely uncomfortable appearing as she had been the day before. Her skin was dry. She was smiling and eager to get home. Discharge Data Studies Completed and Pending Completed Studies During Hospitalization Category Date Time Status CT abdomen pelvis wo con [id number] Routine Cat Scan 09/18/22 10:[address] cervical spin wo con* [id number] Stat Cat Scan 09/17/22 16:[address] head wo con* [id number] Stat Cat Scan 09/17/22 16:58 Completed CV carotid duplex BI* [id number] Routine Ultrasound 09/19/22 16:26 Completed CV. echo complete* [id number] Routine Ultrasound 09/17/22 20:28 Completed Pending at discharge Category Date Time Status NING Profile Rheumatology Routine Lab 09/19/22 12:52 Received Anti Double Stranded DNA AB Routine Lab 09/19/22 04:06 Received CCP [Cyclic Citrullinated Peptide] Routine Lab 09/19/22 04:06 Received Complement Total (CH50) Routine Lab 09/19/22 12:52 Received Radiology Impressions Cervical Spine CT 09/17/22 16:58 IMPRESSION: 1. No acute osseous injury. 2. 3 mm solid right upper lobe nodule. For patients at low risk (minimal or absent history of smoking and of other known risk factors), no routine follow-up is indicated. For patients at high risk (history of smoking or of other known risk factors), consider optional CT Chest at 12 months. (Reference: Grace) REFERENCES: Grace H, et al. Guidelines for Management of Incidental Pulmonary Nodules Detected on CT Images: From the Fleischner Society 2017. Radiology. 2017;284(1):228-243. Head CT 09/17/22 16:58 IMPRESSION: No acute intracranial abnormality. Abdomen/Pelvis CT 09/18/22 10:19 IMPRESSION: 1. Prior cholecystectomy. 2. No renal obstruction or atrophy. 3. No GI tract obstruction. Normal appendix. 4. Small LEFT ovarian cyst. Carotid Doppler Study 09/19/22 16:26 IMPRESSION: 1. No right carotid arterial stenosis. 2. Mild calcified plaque in the proximal left internal carotid artery with significantly less than 50% stenosis. REFERENCES: SRU CRITERIA. The degree of internal carotid artery stenosis is based on criteria defined by the Society of Radiologists in Ultrasound (SRU). Normal is no stenosis. Mild is less than 50% stenosis. Moderate is 50-69% stenosis. Severe is greater than 69% stenosis to near occlusion. Near occlusion is a markedly narrowed lumen. Total occlusion is no detectable patent lumen. Laboratory Results WBC 7.9 10^3/uL (4.0-10.0) 09/19/22 04:06 RBC 3.70 10^6/uL (4.1-5.3) L 09/19/22 04:06 Hgb 10.4 g/dL (11.5-15.3) L 09/19/22 04:06 Hct 32.8 % (37.0-47.0) L 09/19/22 04:06 MCV 88.6 fl (81-99) 09/19/22 04:06 MCH 28.1 pg (28.0-34.0) 09/19/22 04:06 MCHC 31.7 g/dL (30.0-36.0) 09/19/22 04:06 RDW 13.1 % (12.1-15.1) 09/19/22 04:06 Plt Count 245 10^3/cmm (130-400) 09/19/22 04:06 MPV 9.8 fL (7.4-10.4) 09/19/22 04:06 Neut % (Auto) 47.7 % 09/19/22 04:06 Lymph % (Auto) 42.0 % 09/19/22 04:06 [place] % (Auto) 5.6 % 09/19/22 04:06 Eos % (Auto) 3.3 % 09/19/22 04:06 Baso % (Auto) 1.1 % 09/19/22 04:06 Neut # (Auto) 3.78 10^3/uL (1.8-7.7) 09/19/22 04:06 Lymph # (Auto) 3.3 10^3/uL (0.8-4.8) 09/19/22 04:06 [place] # (Auto) 0.4 10^3/uL (0.2-0.9) 09/19/22 04:06 Eos # (Auto) 0.3 10^3/uL (0.0-0.8) 09/19/22 04:06 Baso # (Auto) 0.1 10^3/uL (0.0-0.1) 09/19/22 04:06 Nucleated RBC % (auto) 0 % 09/19/22 04:06 Nucleated RBCs # 0.0 /100WBC 09/19/22 04:06 ESR 2 mm/hr (0-15) 09/19/22 04:06 D-Dimer 0.28 ug/mIFEU (0-0.59) 09/17/22 17:11 Sodium 129 mmol/L (136-145) L 09/20/22 05:00 Potassium 4.4 mmol/L (3.5-5.1) 09/20/22 05:00 Chloride 101 mmol/L (98-107) 09/20/22 05:00 Carbon Dioxide 23 mmol/L (22-29) 09/20/22 05:00 Anion Gap 9.4 (5-19) 09/20/22 05:00 BUN 14 mg/dL (6-20) 09/20/22 05:00 Creatinine 0.9 mg/dL (0.5-0.9) 09/20/22 05:00 GFR Calculation 69.7 mL/min (90-130) L 09/20/22 05:00 Glucose 153 mg/dL (65-115) H 09/20/22 05:00 POC Glucose 142 mg/dL (70-110) H 09/20/22 11:30 Estimat Average Glucose 82 09/17/22 17:11 Hemoglobin A1c 4.5 % (4.0-6.0) 09/17/22 17:11 Calculated Osmolality 272 mOsm/kg (285-295) L 09/20/22 05:00 Calcium 8.5 mg/dL (8.5-10.5) 09/20/22 05:00 Phosphorus 1.9 mg/dL (2.5-4.5) L 09/20/22 05:00 Magnesium 1.7 mg/dL (1.7-2.3) 09/20/22 05:00 Iron 91 ug/dL (37-145) 09/20/22 05:00 TIBC 215 mcg/dl 09/20/22 05:00 % Saturation 42.3 % (20-50) 09/20/22 05:00 Unsat Iron Binding 124 ug/dL (112-347) 09/20/22 05:00 Total Bilirubin 0.2 mg/dL (0.15-1.2) 09/19/22 04:06 AST 16 U/L (0-32) 09/19/22 04:06 ALT 13 U/L (0-33) 09/19/22 04:06 Alkaline Phosphatase 47 U/L (35-105) 09/19/22 04:06 Creatine Kinase 99 U/L (26-192) 09/20/22 05:00 Troponin T Gen 5 ng/L 49 ng/L (0-10) H 09/17/22 21:50 C-Reactive Protein 3.1 mg/L (0.0-4.9) 09/19/22 04:06 Total Protein 6.0 g/dL (6.6-8.7) L 09/19/22 04:06 Albumin 3.5 g/dL (3.5-5.2) 09/19/22 04:06 Globulin 2.5 g/dL (1.3-4.6) 09/19/22 04:06 Vitamin B12 853 pg/mL (232-1245) 09/17/22 17:11 Folate 6.1 ng/mL (4.8-37.3) 09/19/22 04:06 TSH 3.51 uIU/mL (0.27-4.20) 09/17/22 17:11 TSH 3.62 uIU/mL (0.27-4.20) 09/17/22 17:11 HCG, Qual Negative (Negative) 09/17/22 16:59 Urine Color Yellow (Yellow) 09/17/22 21:15 Urine Appearance Cloudy (CLEAR) A 09/17/22 21:15 Urine pH 5 (5-7) 09/17/22 21:15 Ur Specific [place] 1.020 (1.005-1.030) 09/17/22 21:15 Urine Protein Trace (Negative) 09/17/22 21:15 Urine Glucose (UA) Norm (Normal) 09/17/22 21:15 Urine Ketones 1+ (Negative) H 09/17/22 21:15 Urine Blood Neg (Negative) 09/17/22 21:15 Urine Nitrate Negative (Negative) 09/17/22 21:15 Urine Bilirubin Neg (Negative) 09/17/22 21:15 Urine Urobilinogen Neg mg/dL (Negative) 09/17/22 21:15 Ur Leukocyte Esterase Trace (Negative) H 09/17/22 21:15 Urine RBC 0-4 /hpf (0-2) H 09/17/22 21:15 Urine WBC 5-10 /hpf (0-5) H 09/17/22 21:15 Ur Eosinophil Smear 0 (0-0) 09/17/22 21:15 Ur Squamous Epith Cells 15-25 /hpf (0-5) H 09/17/22 21:15 Amorphous Sediment Not Reportable 09/17/22 21:15 Urine Bacteria 4+ /hpf (NONE) H 09/17/22 21:15 Urine Eosinophils No eosinophils seen 09/17/22 21:15 U Random Total Protein 14 mg/dL 09/20/22 04:25 Ur Random Sodium 78 mmol/L 09/17/22 21:15 Ur Random Potassium 26 mmol/L 09/17/22 21:15 Ur Random Chloride 67 mmol/L 09/17/22 21:15 Urine Creatinine 85 mg/dL (28-217) 09/20/22 04:25 Urine Opiates Screen Negative ng/mL (Negative) 09/17/22 21:15 Ur Barbiturates Screen Negative ng/mL (Negative) 09/17/22 21:15 Ur Phencyclidine Scrn Negative ng/mL (Negative) 09/17/22 21:15 Ur Amphetamines Screen Positive ng/mL (Negative) H 09/17/22 21:15 U Benzodiazepines Scrn Negative ng/mL (Negative) 09/17/22 21:15 Urine Cocaine Screen Negative ng/mL (Negative) 09/17/22 21:15 U Marijuana (THC) Screen Negative ng/mL (Negative) 09/17/22 21:15 Rheumatoid Factor 10.0 IU/mL (0-14) 09/19/22 04:06 Complement C3 102 mg/dL (90-180) 09/19/22 04:06 Complement C4 24 mg/dL (10-40) 09/19/22 04:06 Vitals Last Vital Signs Temp 98.0 F 09/20/22 14:00 Pulse 88 09/20/22 14:00 Resp 18 09/20/22 14:00 BP 134/87 09/20/22 14:00 Pulse Ox 98 09/20/22 14:00 O2 Del Method 09/20/22 07:46 Discharge Plan Discharge Patient Disposition: Home Condition: Stable Prescriptions: New magnesium oxide 400 mg magnesium capsule 400 mg PO BID Qty: 60 0RF Continued (DME) cock up splint-bilateral wrist See Rx Instructions .Route .MEDSUPPLY Qty: 1 0RF Rx Instructions: As directed alprazolam [Xanax] 0.5 mg tablet 0.5 - 1 mg PO TID PRN (Reason: anxiety) Qty: 20 0RF pregabalin [Lyrica] 150 mg capsule 150 mg PO BID Qty: 60 3RF hydroxychloroquine 200 mg tablet 200 mg PO BID Qty: 60 3RF leflunomide 20 mg tablet 20 mg PO DAILY Qty: 30 3RF fluticasone propionate [Flonase Allergy Relief] 50 mcg/actuation spray,suspension 2 spray intranasal DAILY Qty: 16 0RF Rx Instructions: administer into each nostril bupropion HCl [Wellbutrin XL] 150 mg tablet extended release 24 hr 150 mg PO QAM prednisone 10 mg tablet See Rx Instructions PO DAILY Qty: 90 1RF Rx Instructions: take 20mg daily x3days then 15mg daily x3days then 10mg daily x3days then stay on 5mg daily orally daily; cyclobenzaprine 10 mg tablet 10 mg PO TID PRN (Reason: Pain) Vitamin D2 1,250 mcg (50,000 unit) capsule 1,250 mcg PO Q7D Rx Instructions: on Mounjaro 10 mg/0.5 mL pen injector 10 mg SUBCUT Q7D Rx Instructions: ON THURSDAY Colace 50 mg Capsule 150 mg PO DAILY Held metformin 1,000 mg tablet 1,000 mg PO BID Hold Instructions: Hold unless instructed to resume for polycystic ovarian syndrome. Your A1C was 4.5 this stay on Mounjaro. Discontinued furosemide [Lasix] 20 mg tablet 20 mg PO PRN Rx Instructions: Patient is to take 1 tablet PO PRN for severe swelling in legs phentermine 37.5 mg tablet 37.5 mg PO DAILY Discharge Orders: Discharge Order (Routine); Ordered 09/20/22 Ordered By: Shantelle Navarro Other Ambulatory Orders: ECG holter monitor 7 Days (Routine) Timeframe: 3 Days Facility: [facility] - Location: Radiology Ordered By: Jason Sampson Referrals: Malorie Schwartz MD [Physician] - 2 months (referral for new pt endocrine, + TPO antibodies, diabetes, polycyctic ovarian syndrome, first non urgent new available [place], 2 months was a random pick) Asim,JULY Cosme [Primary Care Provider] - Discharge Diet: Usual diet Discharge Activity: Resume usual activity Patient Instructions: Dehydration - Adult, Acute Kidney Injury (DC), Syncope (ED), Head Injury (ED), Opioid Safety Activity Restrictions/Additional Instructions: You presented after a syncopal episode. You had hit your head and did demonstrate symptoms of a concussion or closed head injury. You have improved from that standpoint. When you came in you were found to have evidence of acute kidney injury and some electrolyte abnormalities. You received IV fluids and electrolyte replacement. As we reviewed I am holding or stopping different medications. Metformin I am not sure that you need any more unless you are ta michaelle it specifically for polycystic ovarian syndrome. Your hemoglobin A1c was at 4.5. I have asked you to stop phentermine. Please avoid [id number] NSAID use such as ibuprofen, naproxen, Motrin, aspirin and the like currently. After a couple of weeks if you need anti-inflammatory pain medication can resume it but will need to have your renal function watched. I have also asked you to hold Lasix for now. In terms of your Mounjaro. Please take 5 mg this week. If you can get the 7.5 mg dose to do a slower escalation I think that might be better but you can discuss with your prescribing provider in more detail. I am going to have you have your electrolytes and renal function checked in about a week. I did resume your hydroxychloroquine, leflunomide and gabapentin at previous doses. Cyclobenzaprine for some people can cause significant issues with dizziness as can alprazolam but I have not held these medications currently. I do believe most of your symptoms acutely were due to dehydration and electrolyte abnormalities. It is very important that you get a balanced diet. Please take a multivitamin regularly. It can take some time to identify a specific etiology of some medical presentations as we discussed. Please continue regular follow-up with your providers and specialist. We did discuss the possibility of an MRI outpatient. Lets see how you do after medication changes and hydration. If the symptoms persist, particularly those in your neck and upper extremities along others we discussed, may be reasonable to pursue at that time. Discharge Attestations Time Spent in Discharge Care*: greater than 30 min Specific Discharge Activities: educating patient, documenting/other paperwork and evaluating patient/reviewing data Quality Metrics Clinical Quality Measures [ No reported AMI, CVA or VTE this stay] Coding Level of Care Code 90416 Total time (in minutes) for Discharge: 50 Diagnoses Recurrent syncope R55 Closed head injury S09.90XA JACOB (acute kidney injury) N17.9 Hypomagnesemia E83.42 Hypokalemia E87.6 Hypophosphatemia E83.39 Dizziness R42 Orthostatic lightheadedness R42 Neck pain M54.2 Paresthesia of upper extremity R20.2 Inflammatory arthritis M19.90 Anti-TPO antibodies present R76.8 Diabetes mellitus, type II E11.9 Polycystic ovarian syndrome E28.2 High risk medication use Z79.890
[2022-09-22 12:50] LABS: COMPLEMENT, TOTAL (CH50) >60 U/mL (31-60); Complement Total (CH50) >60 U/mL (31-60)
[2022-09-22 13:09] LABS: COMPLEMENT COMPONENT C3C 122 mg/dL (83-193); COMPLEMENT COMPONENT C4C 27 mg/dL (15-57)
[2022-09-22 13:55] LABS: Anti-Double Strand DNA AB 1 IU/mL
[2022-09-22 14:18] LABS: Cyclic Citrullinated Peptide <16 UNITS
[2022-09-22 15:44] LABS: CENTROMERE B ANTIBODY <1.0 NEG AI (<1.0 NEG); JO-1 ANTIBODY <1.0 NEG AI (<1.0 NEG); RNP ANTIBODY <1.0 NEG AI (<1.0 NEG); SCL-70 ANTIBODY <1.0 NEG AI (<1.0 NEG); SJOGREN'S ANTIBODY (SS-A) <1.0 NEG AI (<1.0 NEG); SM ANTIBODY <1.0 NEG AI (<1.0 NEG); SS-B <1.0 NEG AI (<1.0 NEG)
[2022-09-22 17:26] LABS: THYROID PEROXIDASE ANTIBODIES 13 IU/mL (<9)
[2022-09-23 02:34] LABS: DNA AB (DS) CRITHIDIA,IFA NEGATIVE (NEGATIVE)
[2022-09-23 10:23] LABS: ANA SCREEN, IFA NEGATIVE (NEGATIVE)
== END 2022-09-20 17:55 | disposition home or self-care (01) | DRG 683 ==
LOC: ER 18:46 → MEDSURG 19:49
PROVIDERS: Emergency Medicine; Student in an Organized Health Care Education/Training Program; Admitting Provider Internal Medicine; Emergency Provider Emergency Medicine; PCP Nurse Practitioner Family; Visit Provider Hospitalist
DX: N17.9 Acute kidney failure, unspecified (principal); E87.1 Hypo-osmolality and hyponatremia; M19.90 Unspecified osteoarthritis, unspecified site; Z79.899 Other long term (current) drug therapy; E86.0 Dehydration; R32 Unspecified urinary incontinence; R15.9 Full incontinence of feces; Z79.85 Long-term (current) use of injectable non-insulin antidiabetic drugs; R55 Syncope and collapse; E83.42 Hypomagnesemia; E87.6 Hypokalemia; R20.2 Paresthesia of skin; E11.9 Type 2 diabetes mellitus without complications; E28.2 Polycystic ovarian syndrome; F41.9 Anxiety disorder, unspecified; F32.A Depression, unspecified; S09.90XA Unspecified injury of head, initial encounter; W18.39XA Other fall on same level, initial encounter; D50.9 Iron deficiency anemia, unspecified; Z79.84 Long term (current) use of oral hypoglycemic drugs; R68.82 Decreased libido; M54.2 Cervicalgia; H81.10 Benign paroxysmal vertigo, unspecified ear; E66.9 Obesity, unspecified; K21.9 Gastro-esophageal reflux disease without esophagitis; R94.6 Abnormal results of thyroid function studies
CPT/HCPCS: 36415; 36416; 70450; 72125; 74176; 80048; 80053; 80306; 81001; 82436; 82550; 82570; 82575; 82607; 82746; 82962; 83036; 83540; 83550; 83735; 84100; 84133; 84156; 84300; 84443; 84484; 84703; 85025; 85378; 85651; 85999; 86140; 86160; 86162; 86200; 86225; 86235; 86255; 86376; 86403; 86431; 87449; 93005; 93306; 93880; 96365; 96372; 96375; 97161; 99285; G0378; J1200; J1650; J1885; J2765; J3475; J3480; J7030; J7512; Q3014

== ENCOUNTER 2022-10-27 15:36 | Outpatient (CLI) | payer OTHER, MEDICAID, SELFPAY ==
[2022-10-27 16:05] LABS: Basophils # 0.1 10^3/uL (0.0-0.1); Basophils % 0.9 %; Eosinophils # 0.2 10^3/uL (0.0-0.8); Hematocrit 33.4 % (37.0-47.0); Hemoglobin 10.8 g/dL (11.5-15.3); Lymphocytes # 2.6 10^3/uL (0.8-4.8); Lymphocytes % 35.8 %; Mean Corpuscular HGB Conc 32.3 g/dL (30.0-36.0); Mean Corpuscular Volume 89.5 fl (81-99); Mean Platelet Volume 9.7 fL (7.4-10.4); Monocytes # 0.5 10^3/uL (0.2-0.9); Monocytes % 6.6 %; Neutrophils # 3.94 10^3/uL (1.8-7.7); Neutrophils % 53.6 %; Nucleated Red Blood Cells % 0 %; Platelet Count 281 10^3/cmm (130-400); Red Blood Count 3.73 10^6/uL (4.1-5.3); Red Cell Distribution Width 13.2 % (12.1-15.1); White Blood Count 7.4 10^3/uL (4.0-10.0)
[2022-10-27 16:57] LABS: Alanine Aminotransferase 14 U/L (0-33); Albumin Level 3.9 g/dL (3.5-5.2); Alkaline Phosphatase 50 U/L (35-105); Aspartate Amino Transferase 23 U/L (0-32); Blood Urea Nitrogen 24 mg/dL (6-20); Calcium 8.7 mg/dL (8.5-10.5); Carbon Dioxide 22 mmol/L (22-29); Chloride 105 mmol/L (98-107); Globulin 2.8 g/dL (1.3-4.6); Glomerular Filtration Rate 61.7 mL/min (90-130); Glucose 79 mg/dL (65-115); Osmolality Calculated 291 mOsm/kg (285-295); Sodium 139 mmol/L (136-145); Total Bilirubin 0.2 mg/dL (0.15-1.2); Total Protein 6.7 g/dL (6.6-8.7)
[2022-10-27 16:59] LABS: Anion Gap 15.9 (5-19); Potassium 3.9 mmol/L (3.5-5.1)
== END 2022-10-27 15:37 | disposition home or self-care (01) ==
LOC: LAB 15:41
PROVIDERS: PCP Nurse Practitioner Family; Visit Provider Nurse Practitioner Family
DX: S90.424A Blister (nonthermal), right lesser toe(s), initial encounter (principal); X58.XXXA Exposure to other specified factors, initial encounter
CPT/HCPCS: 80053; 84100; 85025

== ENCOUNTER → 2022-11-17 10:14 | Outpatient (BNVA) | payer OTHER, MEDICAID, SELFPAY | PROVIDERS: PCP Nurse Practitioner Family; Referring Provider Hospitalist; Visit Provider Internal Medicine | DX: E06.3 Autoimmune thyroiditis (principal); E78.2 Mixed hyperlipidemia; E11.9 Type 2 diabetes mellitus without complications | CPT/HCPCS: 36415; 84439; 84443 ==

== ENCOUNTER 2023-01-17 14:35 | Outpatient (CLI) | payer OTHER, MEDICAID, SELFPAY ==
[2023-01-17 15:53] LABS: Alanine Aminotransferase 15 U/L (0-33); Alkaline Phosphatase 52 U/L (35-105); Anion Gap 12.8 (5-19); Aspartate Amino Transferase 16 U/L (0-32); Blood Urea Nitrogen 19 mg/dL (6-20); Calcium 8.7 mg/dL (8.5-10.5); Carbon Dioxide 22 mmol/L (22-29); Chloride 108 mmol/L (98-107); Chol HDL Ratio 4.11 mg/dL (0.0-4.40); Cholesterol 193 mg/dL (0-200); Globulin 2.7 g/dL (1.3-4.6); Glucose 101 mg/dL (65-115); HDL Cholesterol 47 mg/dL (60-100); LDL Cholesterol Calculated 118 mg/dL (50-129); LDL HDL Ratio 2.51 RATIO (0.00-3.22); Osmolality Calculated 290 mOsm/kg (285-295); Potassium 3.8 mmol/L (3.5-5.1); Sodium 139 mmol/L (136-145); Total Bilirubin 0.3 mg/dL (0.15-1.2); Total Protein 6.7 g/dL (6.6-8.7); Triglycerides 140 mg/dL (0-150)
[2023-01-17 15:59] LABS: Free T4 Free Thyroxine 1.43 ng/dL (0.82-1.77); Thyroid Stimulating Hormone 1.96 uIU/mL (0.27-4.20)
[2023-01-17 16:03] LABS: Creatinine Urine, Random 245 mg/dL (28-217); Microalbum Creatinine Ratio Ur 8 mg/dL (0-20); Microalbumin Random Urine 2 ug/dL (0-20)
[2023-01-17 16:59] LABS: Estmated Average Glucose 77; Hemoglobin A1C 4.3 % (4.0-6.0)
== END 2023-01-17 14:36 | disposition home or self-care (01) ==
PROVIDERS: PCP Nurse Practitioner Family; Visit Provider Internal Medicine
DX: E06.3 Autoimmune thyroiditis (principal); E11.9 Type 2 diabetes mellitus without complications; E78.2 Mixed hyperlipidemia; Z79.899 Other long term (current) drug therapy
CPT/HCPCS: 36415; 80053; 80061; 82044; 83036; 84439; 84443

== ENCOUNTER 2023-03-11 16:23 | Outpatient (RCR) | payer OTHER, MEDICAID, SELFPAY | END 2023-03-14 23:59 | disposition home or self-care (01) | LOC: SPT 16:23 | PROVIDERS: Visit Provider Internal Medicine Rheumatology | DX: M70.62 Trochanteric bursitis, left hip (principal); M70.61 Trochanteric bursitis, right hip | CPT/HCPCS: 97161 ==

== ENCOUNTER 2023-03-18 11:01 | Emergency (ER) | payer OTHER, MEDICAID, SELFPAY ==
[2023-03-18 11:13] VITALS: BP 151/95; PULSE 100; RESP 18; TEMP 36.7; O2SAT 98; BMI 29.4
--- NOTE | 2023-03-18 11:35 | XR_ITS ---
WS: [id number] EXAMINATION: XR chest 1V portable [id number] REASON FOR EXAM: oethostatic hypotension COMPARISON: 03/16/2019 ORDER DATE: 03/18/2023 11:38 AM TECHNIQUE: A single, portable frontal chest x-ray was obtained. X-RAY FINDINGS: The lungs are clear. Pleural spaces are clear. No pleural effusions or pneumothorax. Cardiomediastinal silhouette is normal. No evidence for pulmonary edema. Soft tissue and osseous structures are unremarkable. No tubes or lines are present. IMPRESSION: Unremarkable frontal portable chest x-ray.
--- NOTE | 2023-03-18 11:44 | ED_ITS ---
HPI - Dizziness General: Chief Complaint: Dizziness Stated Complaint: dizziness,headache,fall Time Seen by Provider: 03/18/23 11:22 History of Present Illness: HPI Narrative: Patient presents to the ER with complaints of dizziness that started yesterday. When she stands up she gets dizzy lightheaded gets tunnel vision feels pass out. Said this is worse in the last day but has been going off and on for approximate last year. Patient has been sent by her PCP to the product specialist, rheumatologis and has appointment coming with a neurologist. Patient said approximately year ago she at the start of the symptoms she was diagnosed with acute kidney injury and dehydration as well as hypokalemia and hypomagnesemia and was hospitalized. Review of Systems General: Reports: 10 or more systems reviewed and unremarkable except in HPI and below PFSH ED PFSH: Medical History Anti-TPO antibodies present Anxiety Depression Diabetes mellitus, type II Gastroesophageal reflux High risk medication use Inflammatory arthritis Joint pain Menstrual migraine Muscle spasms of both lower extremities Obesity Polycystic ovarian syndrome Seronegative rheumatoid arthritis of both hands RF, CCP negative, NING were negative Trochanteric bursitis of both hips Surgical History History of carpal tunnel release left 07/26/2021 History of cholecystectomy (~03/1999) Laparoscopic. Performed at [facility] in [place], [place] History of dilation and curettage (12/25/15) Treatment of missed . D&C with suction performed. Performed by Dr. Cartwright at [facility] in [place], [place]. History of dilation and curettage (11/26/16) Treatment of miscarriage. Performed by Dr. Cartwright at [facility] in [place], [place]. Hx of dilation and curettage (03/24/19) Treatment of Missed . Performed by Dr. Cartwright at [facility] in [place], [place]. Hx of dilation and curettage (07/23/20) Treatment of blighted ovum. Performed by Dr. Cartwright at [facility] in [place], [place] S/P tubal ligation (10/02/20) Laparoscopic complete salpingectomy. Performed by Dr. Cartwright at [facility] in [place], [place]. Family History Mother Hypertension Grandmother Heart disease Maternal Diabetes Maternal Family/Other Breast cancer Maternal great aunt Diabetes Maternal great-grandmother Family/Other No problems noted. Other Cancer Family history of premature coronary artery disease Denies family history of Rheumatoid arthritis Lupus Chronic kidney disease (CKD) Stroke Social History Smoking and tobacco status: never smoked Alcohol intake: never Substance/Drug Use: never Current occupation: computer Physical Exam Const: COMMON NORMALS: no acute distress, average body habitus, patient orie nted x3, no limitations, healthy appearing, alert and well nourished HENMT: COMMON NORMALS: normocephalic, atraumatic, hearing grossly normal bila terally, external ears normal, Normal external nose present and moist oral mucous membranes HEAD & SCALP: normocephalic and atraumatic NOSE: Normal external nose present EXTERNAL EAR: Yes external ears normal Eye: COMMON NORMALS: Equal, round and reactive pupils present, EOMs intact bilaterally, conjunctivae normal and no scleral icterus CONJUNCTIVA: Yes conjunctivae normal PUPIL: Yes Equal, round and reactive pupils present Neck/C-Spine: COMMON NORMALS: full ROM, no lymphadenopathy, supple, no meningeal signs, no JVD and Thyroid normal THYROID: Thyroid normal Chest: COMMONS NORMALS: normal inspection of the chest and normal palpation of entire chest wall Resp: COMMON NORMALS: normal respiratory effort, No retractions, No use of accessory muscles and clear to auscultation bilaterally AUSCULTATION: clear to auscultation bilaterally Cardio: COMMON NORMALS: no JVD, regular rate, regular rhythm, S1 normal heart sound present, S2 normal heart sound present, No gallops present (Cardio), No clicks present (Cardio), No murmurs present (Cardio) and No rub (Cardio) RATE: regular rate RHYTHM: regular rhythm HEART SOUNDS: S1 normal heart sound present and S2 normal heart sound present GI: COMMON NORMALS: Normal to inspection, nondistended, normoactive bowel sounds present, Soft to palpation, non-tender, No hepatosplenomegaly present and no masses PALPATION: Yes Soft to palpation and Yes No hepatosplenomegaly present : COMMON NORMALS: Yes no CVA tenderness BLADDER/KIDNEY EXAM: Yes no CVA tenderness Back/Pelvis: COMMON NORMALS: no CVA tenderness Neuro: COMMON NORMALS: patient oriented x3 SENSORIUM/ORIENTATION: Yes alert MENINGEAL SIGNS: Yes no meningeal signs Course Vital Signs: Vital signs: Vital Signs Temperature 98.1 F 03/18/23 11:13 Pulse Rate 99 03/18/23 13:48 Respiratory Rate 18 03/18/23 11:13 Blood Pressure 141/92 03/18/23 13:48 Pulse Oximetry 100 03/18/23 13:48 Oxygen Delivery Me thod Room Air 03/18/23 13:48 MDM - Dizziness Medical Decision Making Patient presents ER with complaints of lightheaded dizziness worsening when she stands up. Patient is already under going the process of working this up and has been sent to the grey inspector, product specialist and has appointment with a neurologist. Nobody has given her any definitive answers as of yet. Lab work was drawn as well as urine tests performed all of which essentially are benign. Patient will be discharged with a diagnosis of lightheadedness and dizziness and should follow back up with her primary care physician and keep her appointment with her neurologist. Differential Diagnosis Likely orthostatic hypotension; Unlikely adverse reaction to drug, benign paroxysmal positional vertigo, vertebral basilar insufficiency, cerebrovascular accident, acute vestibular neuronitis or transient cerebral ischemia Medical Records I reviewed the patient's medical records. Lab Data I reviewed the patient's lab results. 03/18/23 11:40 03/18/23 11:40 Laboratory Results WBC 6.35 10^3/uL (3.29-11.43) 03/18/23 11:40 RBC 4.14 10^6/uL (3.85-5.65) 03/18/23 11:40 Hgb 12.10 g/dL (11.27-16.99) 03/18/23 11:40 Hct 37.9 % (36-47) 03/18/23 11:40 MCV 91.5 fl (85-98) 03/18/23 11:40 MCH 29.2 pg (27-33) 03/18/23 11:40 MCHC 31.9 g/dL (30-55) 03/18/23 11:40 RDW 12.9 % (12.1-15.1) 03/18/23 11:40 Plt Count 223 10^3/cmm (157-399) 03/18/23 11:40 MPV 10.1 fL (7.4-10.4) 03/18/23 11:40 Neut % (Auto) 54.4 % 03/18/23 11:40 Lymph % (Auto) 33.7 % 03/18/23 11:40 Toole % (Auto) 8.3 % 03/18/23 11:40 Eos % (Auto) 2.0 % 03/18/23 11:40 Baso % (Auto) 1.1 % 03/18/23 11:40 Neut # (Auto) 3.45 10^3/uL (1.8-7.7) 03/18/23 11:40 Lymph # (Auto) 2.1 10^3/uL (0.8-4.8) 03/18/23 11:40 Toole # (Auto) 0.5 10^3/uL (0.2-0.9) 03/18/23 11:40 Eos # (Auto) 0.1 10^3/uL (0.0-0.8) 03/18/23 11:40 Baso # (Auto) 0.1 10^3/uL (0.0-0.1) 03/18/23 11:40 Nucleated RBC % (auto) 0 % 03/18/23 11:40 Nucleated RBCs # 0.0 /100WBC 03/18/23 11:40 Sodium 137 mmol/L (136-145) 03/18/23 11:40 Potassium 4.3 mmol/L (3.5-5.1) 03/18/23 11:40 Chloride 102 mmol/L (98-107) 03/18/23 11:40 Carbon Dioxide 23 mmol/L (22-29) 03/18/23 11:40 Anion Gap 16.3 (5-19) 03/18/23 11:40 BUN 18 mg/dL (6-20) 03/18/23 11:40 Creatinine 1.1 mg/dL (0.5-0.9) H 03/18/23 11:40 GFR Calculation 55.0 mL/min (90-130) L 03/18/23 11:40 Glucose 81 mg/dL (65-115) 03/18/23 11:40 Calculated Osmolality 285 mOsm/kg (285-295) 03/18/23 11:40 Calcium 9.2 mg/dL (8.5-10.5) 03/18/23 11:40 Magnesium 2.1 mg/dL (1.7-2.3) 03/18/23 11:40 Total Bilirubin 0.3 mg/dL (0.15-1.2) 03/18/23 11:40 AST 24 U/L (0-32) 03/18/23 11:40 ALT 13 U/L (0-33) 03/18/23 11:40 Alkaline Phosphatase 52 U/L (35-105) 03/18/23 11:40 Total Protein 6.9 g/dL (6.6-8.7) 03/18/23 11:40 Albumin 4.5 g/dL (3.5-5.2) 03/18/23 11:40 Globulin 2.4 g/dL (1.3-4.6) 03/18/23 11:40 TSH 1.57 uIU/mL (0.27-4.20) 03/18/23 11:40 Urine Color Yellow (Yellow) 03/18/23 12:00 Urine Appearance Clear (CLEAR) 03/18/23 12:00 Urine pH 5 (5-7) 03/18/23 12:00 Ur Specific [place] 1.010 (1.005-1.030) 03/18/23 12:00 Urine Protein Neg (Negative) 03/18/23 12:00 Urine Glucose (UA) Norm (Normal) 03/18/23 12:00 Urine Ketones Negative (Negative) 03/18/23 12:00 Urine Blood Neg (Negative) 03/18/23 12:00 Urine Nitrate Negative (Negative) 03/18/23 12:00 Urine Bilirubin Neg (Negative) 03/18/23 12:00 Urine Urobilinogen Norm mg/dL (Negative) 03/18/23 12:00 Ur Leukocyte Esterase Negative (Negative) 03/18/23 12:00 All radiology interpretation(s) finalized by discharge Discharge Plan Discharge Patient Disposition: Home Clinical Impression: Light-headedness, Dizziness Condition: Stable Prescriptions: No Action (DME) cock up splint-bilateral wrist See Rx Instructions .Route .MEDSUPPLY Qty: 1 0RF Rx Instructions: As directed alprazolam [Xanax] 0.5 mg tablet 0.5 - 1 mg PO TID PRN (Reason: anxiety) Qty: 20 0RF metformin 500 mg tablet extended release 24 hr 500 mg PO DAILY fluticasone propionate [Flonase Allergy Relief] 50 mcg/actuation spray,suspens ion 2 spray intranasal DAILY Qty: 16 0RF Rx Instructions: administer into each nostril Mounjaro 12.5 mg/0.5 mL pen injector 12.5 mg SUBCUT Q7D Rx Instructions: ON THURSDAY leflunomide 20 mg tablet 20 mg PO DAILY Qty: 90 0RF pregabalin [Lyrica] 150 mg capsule 150 mg PO BID Qty: 60 3RF prednisone 10 mg tablet See Rx Instructions PO .COMPLEX PRN (Reason: joint pain) Qty: 30 1RF Rx Instructions: take 1 tab daily for 3-7 days prn joint pain flare PO PRN; bupropion HCl [Wellbutrin XL] 150 mg tablet extended release 24 hr 150 mg PO QAM liothyronine [Cytomel] 5 mcg tablet 5 mcg PO DAILY Qty: 30 1RF Rx Instructions: take 5 mg at noon ergocalciferol (vitamin D2) [Vitamin D2] 1,250 mcg (50,000 unit) capsule 1,250 mcg PO Q7D Rx Instructions: on sulfasalazine 500 mg tablet 500 g PO BID levothyroxine 50 mcg tablet 50 mcg PO DAILY hydroxychloroquine 200 mg tablet 200 mg PO BID triamterene-hydrochlorothiazid 37.5-25 mg tablet 1 tab PO DAILY diclofenac sodium 75 mg tablet,delayed release (DR/EC) 75 mg PO BID PRN (Reason: Pain) M- Plus 27 mg iron- 1 mg tablet 1 tab PO DAILY Discharge Orders: Discharge ED (Routine); Ordered 03/18/23 Ordered By: Juan Carlos Kelley Referrals: Carmelina Dailey APN [Primary Care Provider] - 1 week Patient Instructions: Dizziness, Lightheadedness (ED) Activity Restrictions/Additional Instructions: Please follow-up with your primary care practitioner for further evaluation and treatment. Please keep your appointment with your neurologist as previously scheduled. Coding Level of Care Code ED Contracts Paralegal for Tere Contreras
[2023-03-18] MEDS: sodium chloride 0.9% 1,000 ML 999 ML IV (11:58)
[2023-03-18 12:06] LABS: Add Urine Microscopic? NO; Charge for UA Resulting for Rev
[2023-03-18 12:13] LABS: Basophils # 0.1 10^3/uL (0.0-0.1); Basophils % 1.1 %; Eosinophils # 0.1 10^3/uL (0.0-0.8); Hematocrit 37.9 % (36-47); Lymphocytes # 2.1 10^3/uL (0.8-4.8); Lymphocytes % 33.7 %; Mean Corpuscular HGB Conc 31.9 g/dL (30-55); Mean Corpuscular Hemoglobin 29.2 pg (27-33); Mean Corpuscular Volume 91.5 fl (85-98); Mean Platelet Volume 10.1 fL (7.4-10.4); Monocytes # 0.5 10^3/uL (0.2-0.9); Monocytes % 8.3 %; Neutrophils # 3.45 10^3/uL (1.8-7.7); Neutrophils % 54.4 %; Nucleated Red Blood Cells % 0 %; Platelet Count 223 10^3/cmm (157-399); Red Blood Count 4.14 10^6/uL (3.85-5.65); Red Cell Distribution Width 12.9 % (12.1-15.1); White Blood Count 6.35 10^3/uL (3.29-11.43)
[2023-03-18 12:14] VITALS: BP 151/95; PULSE 91; O2SAT 100
[2023-03-18 12:18] LABS: Bilirubin Urine Neg (Negative); Blood Urine Neg (Negative); Glucose Urine UA Norm (Normal); Ketones Urine Negative (Negative); Leukocyte Esterase Urine Negative (Negative); Nitrate Urine Negative (Negative); Protein Urine Neg (Negative); Urine Appearance Clear (CLEAR); Urine Color Yellow (Yellow); Urobilinogen Urine Norm (Negative); pH Urine 5 (5-7)
[2023-03-18 12:38] LABS: Alanine Aminotransferase 13 U/L (0-33); Albumin Level 4.5 g/dL (3.5-5.2); Alkaline Phosphatase 52 U/L (35-105); Blood Urea Nitrogen 18 mg/dL (6-20); Calcium 9.2 mg/dL (8.5-10.5); Carbon Dioxide 23 mmol/L (22-29); Chloride 102 mmol/L (98-107); Globulin 2.4 g/dL (1.3-4.6); Glucose 81 mg/dL (65-115); Magnesium 2.1 mg/dL (1.7-2.3); Osmolality Calculated 285 mOsm/kg (285-295); Sodium 137 mmol/L (136-145); Thyroid Stimulating Hormone 1.57 uIU/mL (0.27-4.20); Total Bilirubin 0.3 mg/dL (0.15-1.2); Total Protein 6.9 g/dL (6.6-8.7)
[2023-03-18 12:41] LABS: Anion Gap 16.3 (5-19); Potassium 4.3 mmol/L (3.5-5.1)
[2023-03-18 12:42] LABS: Aspartate Amino Transferase 24 U/L (0-32)
[2023-03-18 13:48] VITALS: BP 141/92; PULSE 99; O2SAT 100
== END 2023-03-18 14:32 | disposition home or self-care (01) ==
PROVIDERS: Emergency Provider Emergency Medicine; PCP Nurse Practitioner Family
DX: R42 Dizziness and giddiness (principal); Z79.84 Long term (current) use of oral hypoglycemic drugs; E11.9 Type 2 diabetes mellitus without complications
CPT/HCPCS: 71045; 80053; 81003; 83735; 84443; 85025; 99284; J7030

== ENCOUNTER 2023-04-13 17:27 | Outpatient (CLI) | payer OTHER, MEDICAID, SELFPAY ==
[2023-04-13 20:46] LABS: Free T4 Free Thyroxine 1.32 ng/dL (0.82-1.77)
[2023-04-15 10:04] LABS: T3 Total 86 ng/dL (76-181)
== END 2023-04-13 17:28 | disposition home or self-care (01) ==
PROVIDERS: PCP Nurse Practitioner Family; Visit Provider Internal Medicine
DX: E11.9 Type 2 diabetes mellitus without complications (principal); E78.2 Mixed hyperlipidemia; E06.3 Autoimmune thyroiditis; G62.9 Polyneuropathy, unspecified; M62.81 Muscle weakness (generalized); R53.83 Other fatigue
CPT/HCPCS: 84439; 84443; 84480

== ENCOUNTER → 2023-04-14 09:34 | Outpatient (BNVA) | payer OTHER, MEDICAID, SELFPAY | PROVIDERS: PCP Nurse Practitioner Family; Referring Provider Internal Medicine; Visit Provider Psychiatry & Neurology Neurology | DX: R55 Syncope and collapse (principal); R53.83 Other fatigue; M54.2 Cervicalgia; G62.9 Polyneuropathy, unspecified; M62.81 Muscle weakness (generalized); E06.3 Autoimmune thyroiditis | CPT/HCPCS: 36415; 86337; 86341 ==

== ENCOUNTER 2023-05-19 07:08 | Outpatient (CLI) | payer OTHER, MEDICAID, SELFPAY ==
--- NOTE | 2023-05-19 07:15 | MR_ITS ---
WS: [id number] MRI HEAD WITHOUT CONTRAST TECHNIQUE: Sagittal T1, T2 axial, T2 axial FLAIR, axial and coronal T1 images, axial susceptibility w eighted imaging, axial diffusion weighted images, and coronal T2 images were obtained. CLINICAL INFORMATION: R53.83 - Other fatigue COMPARISON: CT head 09/17/2022 FINDINGS: No evidence of restricted diffusion to suggest acute ischemia. Ventricular system and basal cisterns are patent. Normal romero-white differentiation. No suspicious supra or infratentorial signal abnormali ties. Normal posterior fossa. Normal vascular flow voids at the skull base. No extra-axial fluid anurag ections. No evidence of mass or mass effect. Paranasal sinuses are well aerated. Mucosal thickening LEFT mastoid tip. RIGHT mastoid air cells are well aerated. Normal parapharyngeal fat. Disc osteophyte protrusions in the upper cervical spine at C 3-C4 and C4-C5 with mild central canal stenosis C4-5. No hemosiderin on the susceptibly weighted images. Normal optic chiasm and pituitary infundibulum. Te mporal lobes significant bone formations are normal in appearance. IMPRESSION: 1. No evidence of restricted diffusion to suggest acute ischemia. 2. Normal romero-white differentiation. No suspicious intracranial signal normalities. 3. No hemosiderin on the susceptibly weighted images. 4. Small disc osteophyte protrusions in the upper cervical spine worse at C4-5 with mild central can al stenosis and slight indentation cervical cord. Recommend further evaluation with cervical spine MR I. 5. No hemosiderin on the susceptibly weighted images.
== END 2023-05-19 07:09 | disposition home or self-care (01) ==
LOC: RAD 07:08
PROVIDERS: PCP Nurse Practitioner Family; Visit Provider Psychiatry & Neurology Neurology
DX: M54.2 Cervicalgia (principal); R53.83 Other fatigue; R55 Syncope and collapse; M25.78 Osteophyte, vertebrae
CPT/HCPCS: 70551

== ENCOUNTER 2023-05-29 10:52 | Outpatient (CLI) | payer OTHER, MEDICAID, SELFPAY ==
--- NOTE | 2023-05-29 11:00 | MR_ITS ---
WS: [id number] MRI CERVICAL SPINE NONCONTRAST TECHNIQUE: Sagittal T1, T2 and STIR imaging. Axial T2, gradient, and fiesta imaging. CLINICAL INFORMATION: M54.2 - Cervicalgia COMPARISON: None. FINDINGS: Straightening of the normal cervical doses. Central disc protrusion at C4-5 with indentation on the c ervical cord and severe central canal stenosis. Associated myelomalacia of the cervical cord at this level. Spinal canal measures approximately 4 mm at this level. C2-C3: Mild facet arthropathy. Mild LEFT bony foraminal narrowing. C3-C4: Mild disc bulge and osteophytic ridging. Small central protrusion. Slight indentation of the c ervical cord with mild central canal stenosis. Mild facet arthropathy. Mild LEFT greater than RIGHT f oraminal narrowing. C4-C5: Central disc osteophyte protrusion with severe central canal stenosis. Myelomalacia in the cer vical cord at this level. Flattening of the cervical cord. Severe bilateral bony foraminal narrowing. Moderate facet arthropathy. C5-C6: RIGHT paracentral disc osteophyte protrusion with indentation on the RIGHT ventral cervical co rd. Moderate central canal stenosis with flattening of the RIGHT ventral cervical cord. Moderate bila teral bony foraminal narrowing. C6-C7: Disc osteophyte complex with slight effacement of ventral thecal sac. Moderate RIGHT and mild LEFT bony foraminal narrowing. C7-T1: Mild disc bulge with a tiny central protrusion. Spinal canal and foramen are patent. T1-T2: Small RIGHT paracentral protrusion. Spinal canal and foramen are patent. Visualized brain stem structures: Normal. Prevertebral soft tissues: Normal. IMPRESSION: 1. Straightening of the normal cervical lordosis. 2. Central disc osteophyte protrusion C4-5 eccentric to the RIGHT with severe central canal stenosis . Indentation with flattening of the cervical cord with myelomalacia in the cervical cord. 3. Mild central canal stenosis C3-C4. 4. Moderate central canal stenosis C5-C6 with a RIGHT paracentral disc osteophyte protrusion with in dentation and flattening of the cervical cord. 5. Severe RIGHT greater than LEFT bony foraminal narrowing C4-5. 6. Moderate bilateral bony foraminal narrowing at C5-C6. 7. Moderate RIGHT C6-C7 bony foraminal narrowing.
== END 2023-05-29 10:53 | disposition home or self-care (01) ==
LOC: RAD 10:52
PROVIDERS: PCP Nurse Practitioner Family; Visit Provider Psychiatry & Neurology Neurology
DX: M53.82 Other specified dorsopathies, cervical region (principal); M25.78 Osteophyte, vertebrae; M48.02 Spinal stenosis, cervical region; G95.89 Other specified diseases of spinal cord
CPT/HCPCS: 72141

== ENCOUNTER → 2023-06-04 11:00 | Outpatient (BNVA) | payer OTHER, MEDICAID, SELFPAY | PROVIDERS: PCP Nurse Practitioner Family; Referring Provider Psychiatry & Neurology Neurology; Visit Provider Orthopaedic Surgery | DX: M48.02 Spinal stenosis, cervical region (principal); M47.12 Other spondylosis with myelopathy, cervical region | CPT/HCPCS: 72040; 93005 ==

== ENCOUNTER 2023-06-04 13:30 | Outpatient (CLI) | payer OTHER, MEDICAID, SELFPAY ==
[2023-06-04 14:15] LABS: Basophils # 0.1 10^3/uL (0.0-0.1); Basophils % 1.2 %; Eosinophils # 0.2 10^3/uL (0.0-0.8); Eosinophils % 2.8 %; Hematocrit 36.5 % (36-47); Lymphocytes # 2.1 10^3/uL (0.8-4.8); Lymphocytes % 31.2 %; Mean Corpuscular HGB Conc 32.1 g/dL (30-55); Mean Corpuscular Hemoglobin 28.8 pg (27-33); Mean Corpuscular Volume 89.9 fl (85-98); Mean Platelet Volume 10.1 fL (7.4-10.4); Monocytes # 0.5 10^3/uL (0.2-0.9); Monocytes % 6.8 %; Neutrophils # 3.91 10^3/uL (1.8-7.7); Neutrophils % 57.7 %; Nucleated Red Blood Cells % 0 %; Platelet Count 232 10^3/cmm (157-399); Red Blood Count 4.06 10^6/uL (3.85-5.65); Red Cell Distribution Width 12.3 % (12.1-15.1); White Blood Count 6.77 10^3/uL (3.29-11.43)
[2023-06-04 14:33] LABS: Add Urine Culture? No; Add Urine Microscopic? YES; Bacteria Urine TRACE /hpf; Bilirubin Urine Neg (Negative); Blood Urine 2+ (Negative); Glucose Urine UA Norm (Normal); Ketones Urine Negative (Negative); Leukocyte Esterase Urine Negative (Negative); Nitrate Urine Negative (Negative); Protein Urine Neg (Negative); RBC Urine 0-4 /hpf (0-2); Specific Gravity, Urine 1.015 (1.005-1.030); Squamous Epithelial Cell Urine 0-4 /hpf (0-5); Urine Appearance Clear (CLEAR); Urine Color Yellow (Yellow); Urobilinogen Urine Norm (Negative); WBC Urine 0-4 /hpf (0-5); pH Urine 5 (5-7)
[2023-06-04 14:44] LABS: Alanine Aminotransferase 14 U/L (0-33); Albumin Level 4.3 g/dL (3.5-5.2); Alkaline Phosphatase 65 U/L (35-105); Anion Gap 12.5 (5-19); Aspartate Amino Transferase 17 U/L (0-32); Blood Urea Nitrogen 13 mg/dL (6-20); Calcium 9.5 mg/dL (8.5-10.5); Carbon Dioxide 27 mmol/L (22-29); Chloride 102 mmol/L (98-107); Free T4 Free Thyroxine 1.37 ng/dL (0.82-1.77); Globulin 2.8 g/dL (1.3-4.6); Glomerular Filtration Rate 69.3 mL/min (90-130); Glucose 84 mg/dL (65-115); Osmolality Calculated 285 mOsm/kg (285-295); Potassium 3.5 mmol/L (3.5-5.1); Sodium 138 mmol/L (136-145); Thyroid Stimulating Hormone 2.14 uIU/mL (0.27-4.20); Total Bilirubin 0.2 mg/dL (0.15-1.2); Total Protein 7.1 g/dL (6.6-8.7)
[2023-06-04 15:09] LABS: Estmated Average Glucose 80; Hemoglobin A1C 4.4 % (4.0-6.0)
== END 2023-06-04 13:31 | disposition home or self-care (01) ==
LOC: LAB 13:34
PROVIDERS: Absent Provider Internal Medicine Rheumatology; PCP Nurse Practitioner Family; Referring Provider Orthopaedic Surgery; Visit Provider Internal Medicine
DX: M19.90 Unspecified osteoarthritis, unspecified site (principal); M48.02 Spinal stenosis, cervical region; Z79.899 Other long term (current) drug therapy; E06.3 Autoimmune thyroiditis
CPT/HCPCS: 36415; 80053; 81001; 83036; 84439; 84443; 85025; 86140

== ENCOUNTER 2023-06-11 06:25 | Outpatient (CLI) | payer OTHER, MEDICAID, SELFPAY ==
--- NOTE | 2023-06-11 07:32 | USCV_ITS ---
Dagmar Lai Age: 42 Gender: F : 1980 Exam Date: 06/11/2023 06:36 Ordering Phys: Malcolm Pagan M.D Technologist: [place] [facility] [place]: cardiac arrhythmia BP: 130 / 80 HR: 83 Rhythm: Sinus Technical Quality: Adequate MEASUREMENTS (Male / Female) Normal Values 2D ECHO LV Diastolic Diameter PLAX 2.9 cm 4.2 - 5.9 / 3.9 - 5.3 cm LV Systolic Diameter PLAX 1.8 cm IVS Diastolic Thickness 1.1 cm 0.6 - 1.0 / 0.6 - 0.9 cm IVS Systolic Thickness 1.1 cm LVPW Diastolic Thickness 1.2 cm 0.6 - 1.0 / 0.6 - 0.9 cm LVPW Systolic Thickness 1.3 cm LVOT Diameter 2.1 cm LV Ejection Fraction 2D Teich 69.7 % LV Ejection Fraction MOD 2C 63.1 % LV Ejection Fraction 2C AL 63.2 % LA Diameter 3.7 cm IVC Diameter 1.3 cm M-MODE Aortic Annulus Diameter 3.1 cm LA Ao Ratio MM 1.3 MV E Point Septal Separation 1.0 cm FINDINGS Left Ventricle Left ventricle is normal size. LV systolic function is normal with EF of 55 to 60%. No regional wall motion abnormalities are seen. Right Ventricle Normal in size and function Right Atrium Normal in size Left Atrium Normal in size Mitral Valve Structurally normal mitral valve. Trace mitral regurgitation Aortic Valve Structurally normal aortic valve. No significant stenosis or regurgitation. Tricuspid Valve Mild tricuspid regurgitation. Insufficient TR jet to evaluate RVSP Pulmonic Valve Not well visualized Pericardium Normal Aorta Normal in size IVC Appears to be normal CONCLUSIONS LV systolic function is normal with EF 55 to 60% Trace mitral regurgitation Mild tricuspid regurgitation Compared to prior echocardiogram from 09/17/2022, no significant changes are seen Malcolm Pagan MD (Electronically Signed) Final Date: 18 June 2023 17:29 S
== END 2023-06-11 06:26 | disposition home or self-care (01) ==
LOC: RAD 06:25
PROVIDERS: PCP Nurse Practitioner Family; Visit Provider Internal Medicine
DX: R06.02 Shortness of breath (principal); I49.9 Cardiac arrhythmia, unspecified; I07.1 Rheumatic tricuspid insufficiency
CPT/HCPCS: 93306; 93308

== ENCOUNTER → 2023-07-03 10:30 | Outpatient (BNVA) | payer OTHER, MEDICAID, SELFPAY | PROVIDERS: PCP Nurse Practitioner Family; Visit Provider Family Medicine | DX: Z01.818 Encounter for other preprocedural examination (principal) | CPT/HCPCS: 81003; 85025 ==

== ENCOUNTER → 2023-07-07 14:02 | Outpatient (BNVA) | payer OTHER, MEDICAID, SELFPAY | PROVIDERS: PCP Nurse Practitioner Family; Visit Provider Family Medicine | DX: Z01.818 Encounter for other preprocedural examination (principal) | CPT/HCPCS: 80053; 85025 ==

== ENCOUNTER 2023-07-15 10:14 | Inpatient (IN) | payer OTHER, SELFPAY ==
[2023-07-15] VITALS (22 sets, daily range): BP systolic 103–141; BP diastolic 68–106; PULSE 76–95; RESP 8–18; TEMP 36.1–37; O2SAT 92–100; BMI 29.9; BMI 30.9
--- NOTE | 2023-07-15 | XRR_ITS ---
PROCEDURE INFORMATION: Exam: XR Cervical Spine Exam date and time: 07/15/2023 9:52 AM Age: 42 years old Clinical indication: Device placement; Other: Acdf fusion; Prior surgery; Surgery date: Post-operative (0-2 days); Additional info: Acdf fusion, or pic TECHNIQUE: Imaging protocol: Radiologic exam of the cervical spine. Views: 2 or 3 views. COMPARISON: CR XR cervical spine fl/ex [id number] 06/04/2023 10:59 AM FINDINGS: Bones/joints: Anterior plate and fusion C3 through C6. Anatomic alignment. The soft tissues are normal. No lytic or sclerotic bone lesion. No acute fracture. Normal alignment. Soft tissues: Unremarkable. XR/XR cervical spine 3V* [id number] IMPRESSION: Postoperative findings.
--- NOTE | 2023-07-15 06:28 | W.PM.OPSUD ---
Surgery/Procedure H&P Update DATE OF PROCEDURE: July 15, 2023 DATE H&P PERFORMED: 07/03/23 H&P UPDATE INFORMATION: I have reviewed H&P completed within last 30 days, I have examined patient prior to procedure and No changes to prior documentation PLANNED PROCEDURE: Operation Date: 07/15/23 07:00 Proposed Procedures p ACDF w/ Cage w/ Instrumentation w/ Allograft w/ Navigation(C3/4,C4/5,C5/6)(Not Applicable) - Fletcher Noble DO
--- NOTE | 2023-07-15 06:31 | P.ANESASSM_ITS ---
Pre-Anesthetic Assessment Height/Weight: Height 1.7 m Weight 86.636 kg Temp Pulse Resp BP Pulse Ox O2 Del Method 98.5 F 93 18 138/106 98 Room Air 07/15/23 06:16 07/15/23 06:16 07/15/23 06:16 07/15/23 06:16 07/15/23 06:16 07/15/23 06:21 Operation Date: 07/15/23 07:00 Proposed Procedures p ACDF w/ Cage w/ Instrumentation w/ Allograft w/ Navigation(C3/4,C4/5,C5/6)(Not Applicable) - Fletcher Noble, DO Familial anesthetic complications: PONV Was Beta Henry taken within 24 hours: N/A Was Clonidine taken within 24 hours: N/A Last intake: Intake Last Liquid Date 07/14/23 Last Liquid Time 21:00 Last Solid Date 07/14/23 Last Solid Time 18:00 Social No alcohol and No tobacco Exam alert, oriented x 3, clear to auscultation bilaterally and regular rate & rhythm Airway Mallampati: Class II Dentition: full Metabolic Diabetes Mellitus, Morbid Obesity and Thyroid Disease [facility] Anesthetic Plan ASA status: 3 Anesthesia: General Risk of > 500 ml blood loss (7ml/kg in children): No Medications/Allergies Home Medications Medication Instructions Recorded Confirmed Last Taken Type alprazolam 0.5 mg tablet (Xanax) 0.5 - 1 mg (1 - 2 x 0.5 mg) PO TID 07/20/20 07/14/23 07/15/23 Rx PRN anxiety #20 tabs cock up splint-bilateral wrist #1 ea 06/26/21 07/01/23 Unknown Rx bupropion HCl 150 mg 24 hr tablet, 300 mg PO QAM 01/14/22 07/15/23 07/14/23 History extended release (Wellbutrin XL) fluticasone propionate 50 2 spray intranasal DAILY #16 grams 08/11/22 07/14/23 03/18/23 Rx mcg/actuation nasal spray,suspension (Flonase Allergy Relief) ergocalciferol (vitamin D2) 1,250 1,250 mcg PO Q7D 09/18/22 07/14/23 07/08/23 History mcg (50,000 unit) capsule (Vitamin D2) metformin 500 mg tablet,extended 500 mg PO DAILY 10/27/22 07/14/23 07/14/23 History release 24 hr tirzepatide 12.5 mg/0.5 mL 12.5 mg SUBCUT Q7D 11/17/22 07/14/23 07/05/23 History subcutaneous pen injector (Ernestine) prednisone 10 mg tablet See Rx Instructions PO .COMPLEX 01/28/23 07/14/23 Unknown Rx PRN joint pain #30 tabs vitamin with calcium 1 tab PO DAILY 03/18/23 07/14/23 07/08/23 History no.72-iron 27 mg-folic acid 1 mg tablet (M-[place] Plus) triamterene 37.5 1 tab PO DAILY 03/18/23 07/14/23 03/18/23 History mg-hydrochlorothiazide 25 mg tablet liothyronine 5 mcg tablet (Cytomel) 5 mcg PO DAILY #30 tabs 05/21/23 07/14/23 07/14/23 Rx bone growth stimulator #1 ea 06/05/23 07/01/23 Unknown Rx hydroxychloroquine 200 mg tablet 200 mg PO BID #180 tabs 07/01/23 07/14/23 07/14/23 Rx leflunomide 20 mg tablet 20 mg PO DAILY #90 tabs 07/01/23 07/14/23 07/14/23 Rx pregabalin 150 mg capsule (Lyrica) 150 mg PO BID #60 caps 07/01/23 07/14/23 07/15/23 Rx sulfasalazine 500 mg tablet 0.5 g PO BID #180 tabs 07/01/23 07/14/23 07/12/23 Rx docusate sodium 50 mg capsule 50 mg PO BID 07/03/23 07/14/23 07/14/23 History baclofen 10 mg tablet 10 mg PO DAILY 07/14/23 07/14/23 07/14/23 History levothyroxine 50 mcg tablet 50 mcg PO DAILY 07/14/23 07/14/23 07/14/23 History Allergies Allergy/AdvReac Type Severity Reaction Status Date / Time citalopram [From Celexa] Allergy Intermediate swelling Verified 07/03/23 10:40 all over cephalexin Allergy Vomiting Verified 07/03/23 10:40 latex Allergy Rash Verified 07/03/23 10:40 tramadol Allergy Nausea Verified 07/03/23 10:40 [facility] Anesthesia Medical History Trochanteric bursitis of both hips Seronegative rheumatoid arthritis of both hands RF, CCP negative, NING were negative Anti-TPO antibodies present Diabetes mellitus, type II High risk medication use Inflammatory arthritis Depression Anxiety Joint pain Muscle spasms of both lower extremities Menstrual migraine Obesity Gastroesophageal reflux Polycystic ovarian syndrome Surgical History History of carpal tunnel release left 07/26/2021 S/P tubal ligation (10/02/20) Laparoscopic complete salpingectomy. Performed by Dr. Cartwright at [facility] in [place], [place]. Hx of dilation and curettage (07/23/20) Treatment of blighted ovum. Performed by Dr. Cartwright at [facility] in [place], [place] History of cholecystectomy (~03/1999) Laparoscopic. Performed at [facility] in [place], [place] Hx of dilation and curettage (03/24/19) Treatment of Missed . [place]. Cartwright [place] [facility] [place], [place]. History of dilation and curettage (11/26/16) Treatment of miscarriage. Per[place] Dr. Cartwright at [facility] [place] History of dilation and curettage (12/25/15) Treatment of missed . D&C with suction performed. [place] Dr. Cartwright at [facility] [place], [place]. Family History Mother Hypertension Grandmother Heart disease Maternal Diabetes Maternal Family/Other Breast cancer Maternal great aunt Diabetes Maternal great-grandmother Family/Other No problems noted. 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
[2023-07-15] MEDS: scopolamine 1.5 Patch 1 PATCH TRANSDERMA (06:49)
[2023-07-15] MEDS: sodium chloride 0.9% 1,000 ML 30 ML IV (06:49)
[2023-07-15 06:52] LABS: Glucose Point of Care 81 mg/dL (70-110)
[2023-07-15] MEDS: ceFAZolin 2,000 MG in sodium chloride 0.9% (plus) 50 ML 100 MG IV (07:00)
[2023-07-15] MEDS: thrombin 5,000 unit SDV 5000 UNIT XX (07:49)
[2023-07-15] MEDS: lidocaine-epi 1% 20 mL INJ INJECTION (07:50)
--- NOTE | 2023-07-15 09:51 | P.OP_ITS ---
Operative Report Date of procedure: July 15, 2023 Pre-op diagnosis: Cervical spondylosis with myelopathy Post-op diagnosis: same Procedure done: 1. Anterior diskectomy C3/4 2. Anterior discectomy C4/5 3. Anterior diskectomy C5/6 4. Insertion of cage C3/4 5. Insertion of cage C4/5 6. Insertion of Cage C5/6 7. Instrumentation with anterior plate from C4-6 8. Use of allograft Surgeon: Fletcher Noble DO Estimated blood loss (mL): 20 Procedure: 1. Anterior diskectomy C3/4 2. Anterior discectomy C4/5 3. Anterior diskectomy C5/6 4. Insertion of cage C3/4 5. Insertion of cage C4/5 6. Insertion of Cage C5/6 7. Instrumentation with anterior plate from C4-6 8. Use of allograft The patient was taken to the operating room, where he underwent general endotracheal anesthesia without complications. He was then positioned supine on the operating table, and all areas of impingement were well padded. The arms were carefully padded and tucked at his sides. A roll was placed between the shoulder blades.. An x-ray was done to determine the appropriate level for the skin incision. The entire neck was then sterilely prepped and draped in the usual fashion. Neuromonitoring was attached prior to prepping. A transverse skin incision was made and carried down to the platysma muscle. This was then split in line with its fibers. Blunt dissection was carried down medial to the carotid sheath and lateral to the trachea and esophagus until the anterior cervical spine was visualized. A needle was placed into a disc and an x-ray was done to determine its location. The longus colli muscles were then elevated bilaterally with the electrocautery unit. Self-retaining retractors w ere placed deep to the longus colli muscle. Attention was brought to the C3/4 level that was confirmed on x-ray. A caspar pin was placed into the C3 vertebrae and the C4 vertebrae. The disk space was then distracted. The microscope was then brought in. A radical anterior discectomies were performed at C3/4. This included complete removal of the anterior annulus, nucleus, and posterior annulus. The posterior longitudinal ligament was removed as were the posterior osteophytes. Foraminotomies were then accomplished bilaterally. This was done using a high speed lady, kerrison rongeurs and curretes Once all of this was accomplished, the curved currette was used to check for any residual compression. The central canal was wide open as were the foramen. A high-speed bur was used to remove the cartilaginous endplates above and below the interspace. Bleeding cancellous bone was exposed. The disc space were measured and appropriate size cage were placed sterilely onto the field. Allograft graft was packed into the cages. The cage was then placed and there was good juxtaposition against the bleeding decorticated surfaces and good distraction of each interspace. Attention was brought to the next interspace. The Rubicon pins were removed. Bone wax was used to prevent any bleeding from occurring at the pin sites. Attention was brought to the C4/5 level that was confirmed on x-ray. A caspar pin was placed into the C4 vertebrae and the C5 vertebrae. The disk space was then distracted. The microscope was then brought in. A radical anterior discectomies were performed at C4/5. This included complete removal of the anterior annulus, nucleus, and posterior annulus. The posterior longitudinal ligament was removed as were the posterior osteophytes. Foraminotomies were then accomplished bilaterally. This was done using a high speed lady, kerrison rongeurs and curretes Once all of this was accomplished, the curved currette was used to check for any residual compression. The central canal was wide open as were the foramen. A high-speed bur was used to remove the cartilaginous endplates above and below the interspace. Bleeding cancellous bone was exposed. The disc space were measured and appropriate size cage were placed sterilely onto the field. Allograft graft was packed into the cages. The cage was then placed and there was good juxtaposition against the bleeding decorticated surfaces and good distraction of each interspace. Attention was brought to the next interspace. The Rubicon pins were removed. Bone wax was used to prevent any bleeding from occurring at the pin sites. Attention was brought to the C5/6 level that was confirmed on x-ray. A caspar pin was placed into the C5 vertebrae and the C6 vertebrae. The disk space was then distracted. The microscope was then brought in. A radical anterior discectomies were performed at C5/6. This included complete removal of the anterior annulus, nucleus, and posterior annulus. The posterior longitudinal ligament was removed as were the posterior osteophytes. Foraminotomies were then accomplished bilaterally. This was done using a high speed lady, kerrison rongeurs and curretes Once all of this was accomplished, the curved currette was used to check for any residual compression. The central canal was wide open as were the foramen. A high-speed bur was used to remove the cartilaginous endplates above and below the interspace. Bleeding cancellous bone was exposed. The disc space were measured and appropriate size cage were placed sterilely onto the field. Allograft graft was packed into the cages. The cage was then placed and there was good juxtaposition against the bleeding decorticated surfaces and good distraction of each interspace. The Rubicon pins were removed. Bone wax was used to prevent any bleeding from occurring at the pin sites. The appropriate size anterior cervical locking plate was chosen and bent into gentle lordosis. Two screws were then placed into each of the vertebral bodies at C3, C4, C5 and C6. There was excellent purchase. A final x-ray was done confirming good position of the hardware and Cages. The locking screws were then applied, also with excellent purchase. Following a final copious irrigation, there was good hemostasis and no dural leaks. The carotid pulse was strong. The wounds were then closed in layers using 2-0 Vicryl suture for the platysma muscle, 2-0 Vicryl suture for the subcutaneous tissue, and 4-0 monocryl suture in a subcuticular skin closure. Glue was placed followed by application of a sterile dressing. The drain was hooked to bulb suction. A soft collar was applied. The patient was then carefully returned to the supine position on his hospital bed where he was reversed and extubated and taken to the recovery room having tolerated the procedure well.
[2023-07-15] MEDS: fentaNYL 50 mcg/mL INJ 2mL IVP (10:00)
--- NOTE | 2023-07-15 10:25 | ANE.PACU2 ---
Inpatient post-anesthesia follow up: Airway intact: Yes Vital signs: Temperature 97.6 F Pulse Rate 83 Respiratory Rate 15 Blood Pressure 122/81 Pulse Oximetry 96 Oxygen Delivery Me thod Room Air Oxygen Flow Rate 8 Fraction of Inspir ed Oxygen Hydration adequate: Yes Nausea and vomiting: No Pain level: 1 Mental status: Baseline
[2023-07-15] MEDS: lactated ringers 1,000 ML 90 ML IV (11:08)
[2023-07-15] MEDS: morphine 4 mg/mL SDV 1 mL 2 MG IVP ×2 (11:08→20:33)
[2023-07-15] MEDS: HYDROcodone-acetaminophen 5-325 mg Tablet PO ×3 (11:09→23:36)
[2023-07-15] MEDS: ketorolac 30 mg/mL INJ IVP ×2 (11:09→20:32)
--- NOTE | 2023-07-15 11:27 | P.PN_ITS ---
Subjective Subjective: Patient is sitting up in chair today. Complain of knee pain still. Vitals/I&O/Wt Last Vital Signs Temp 97.6 F 07/15/23 10:20 Pulse 89 07/15/23 10:53 Resp 16 07/15/23 11:08 BP 103/69 07/15/23 10:35 Pulse Ox 98 07/15/23 10:53 O2 Del Method Room Air 07/15/23 10:53 O2 Flow Rate 8 07/15/23 09:50 07/14/23 07/15/23 07/15/23 22:59 06:59 14:59 Intake Total 334.5 / 334.5 Output Total 105 / 105 Balance 229.5 / 229.5 Weight last 48 hrs Weight 197 lb 7 oz Weight 191 lb Physical Exam Narrative: No erythema of left knee swelling seems of gone down some. Urinary Catheter Management: Garcia Latex Free: Cath Placed During This Visit: yes, but has since been removed by the nurse Urinary Catheter Date of Insertion: 07/15/23 Urinary Catheter Time of Insertion: 07:15 Date Urinary Catheter Removed: 07/15/23 Time Urinary Catheter Discontinued: 09:25 A&P Assessment and plan (1) Inflammatory arthritis: Patient has left knee osteoarthritis. Recommend follow-up with Dr. Barreto or Dr. Erickson for potential Hyalgan injections versus total knee arthroplasty. Okay to discharge from an orthopedic standpoint Attestations Medical Necessity Statement*: Per primary service Coding Level of Care Code Acute Code for [facility] Diagnoses Inflammatory arthritis M19.90
[2023-07-15 11:53] LABS: Glucose Point of Care 98 mg/dL (70-110)
[2023-07-15 17:14] LABS: Glucose Point of Care 186 mg/dL (70-110)
[2023-07-15] MEDS: docusate sodium 100 mg Capsule PO (17:31)
[2023-07-15] MEDS: pregabalin 150 mg Capsule PO (17:31)
[2023-07-15] MEDS: hydroxychloroquine 200 mg Tablet PO (17:31)
[2023-07-15] MEDS: sulfaSALAzine 500 mg Tablet PO (17:31)
[2023-07-15 21:33] LABS: Glucose Point of Care 149 mg/dL (70-110)
[2023-07-16 03:44] VITALS: BP 101/66; PULSE 93; RESP 18; TEMP 37; O2SAT 95
[2023-07-16] MEDS: HYDROcodone-acetaminophen 5-325 mg Tablet PO ×2 (04:40→09:36)
[2023-07-16] MEDS: lactated ringers 1,000 ML 90 ML IV (04:42)
[2023-07-16 06:00] VITALS: BMI 29.9
[2023-07-16] MEDS: buPROPion XL (24 HR) 150 mg Tablet 300 MG PO (06:51)
[2023-07-16 07:07] LABS: Glucose Point of Care 93 mg/dL (70-110)
--- NOTE | 2023-07-16 07:45 | P.DS_ITS ---
Discharge Providers Date of Admission: 07/15/23 10:14 Date of Discharge: July 16, 2023 Attending Provider at Admission: Fletcher Noble DO Attending Provider at Discharge: Fletcher Noble DO Primary Care Provider: Carmelina Dailey APN Diagnoses at Discharge Discharge Diagnosis (1) Inflammatory arthritis: Status: Chronic Reason for Visit Reason for Visit: M47.12 Physical Exam Narrative: Patient doing well overall at this point simply in the low bit of numbness in her hands and feet, tingling. Sitting up in chair pain controlled Urinary Catheter Management: Garcia Latex Free: Cath Placed During This Visit: yes, but has since been removed by the nurse Urinary Catheter Date of Insertion: 07/15/23 Urinary Catheter Time of Insertion: 07:15 Date Urinary Catheter Removed: 07/15/23 Time Urinary Catheter Discontinued: 11:30 Discharge Data Studies Completed and Pending Completed Studies During Hospitalization Category Date Time Status XR cervical spine 3V* 65705 Routine Exams 07/15/23 Completed Pending at discharge Category Date Time Status C-arm Fluoroscopy 59591 Routine Exams 07/15/23 Taken Radiology Impressions Cervical Spine X-Ray 07/15/23 00:00 IMPRESSION: Postoperative findings. Laboratory Results POC Glucose 93 mg/dL (70-110) 07/16/23 06:59 Vitals Last Vital Signs Temp 98.6 F 07/16/23 03:44 Pulse 93 07/16/23 03:44 Resp 18 07/16/23 03:44 BP 101/66 07/16/23 03:44 Pulse Ox 95 07/16/23 03:44 O2 Del Method Room Air 07/16/23 03:44 O2 Flow Rate 8 07/15/23 09:50 Discharge Plan Discharge Patient Disposition: Home Condition: Stable Prescriptions: New hydrocodone-acetaminophen 5-325 mg tablet 1 - 2 tab PO .Q4-6H Qty: 40 0RF Continued (DME) cock up splint-bilateral wrist See Rx Instructions .Route .MEDSUPPLY Qty: 1 0RF Rx Instructions: As directed alprazolam [Xanax] 0.5 mg tablet 0.5 - 1 mg PO TID PRN (Reason: anxiety) Qty: 20 0RF metformin 500 mg tablet extended release 24 hr 500 mg PO DAILY fluticasone propionate [Flonase Allergy Relief] 50 mcg/actuation spray,suspension 2 spray intranasal DAILY Qty: 16 0RF Rx Instructions: administer into each nostril Mounjaro 12.5 mg/0.5 mL pen injector 12.5 mg SUBCUT Q7D Rx Instructions: ON THURSDAY prednisone 10 mg tablet See Rx Instructions PO .COMPLEX PRN (Reason: joint pain) Qty: 30 1RF Rx Instructions: take 1 tab daily for 3-7 days prn joint pain flare PO PRN; hydroxychloroquine 200 mg tablet 200 mg PO BID Qty: 180 1RF leflunomide 20 mg tablet 20 mg PO DAILY Qty: 90 0RF pregabalin [Lyrica] 150 mg capsule 150 mg PO BID Qty: 60 3RF sulfasalazine 500 mg tablet 0.5 g PO BID Qty: 180 1RF bupropion HCl [Wellbutrin XL] 150 mg tablet extended release 24 hr 300 mg PO QAM docusate sodium 50 mg capsule 50 mg PO BID liothyronine [Cytomel] 5 mcg tablet 5 mcg PO DAILY Qty: 30 1RF Rx Instructions: take 5 mg at noon (DME) bone growth stimulator See Rx Instructions .Route .MEDSUPPLY Qty: 1 0RF Rx Instructions: As directed baclofen 10 mg tablet 10 mg PO DAILY Rx Instructions: watch for sedation levothyroxine 50 mcg tablet 50 mcg PO DAILY Rx Instructions: TAKE ONE TABLET BY MOUTH DAILY ergocalciferol (vitamin D2) [Vitamin D2] 1,250 mcg (50,000 unit) capsule 1,250 mcg PO Q7D triamterene-hydrochlorothiazid 37.5-25 mg tablet 1 tab PO DAILY M-Edna Plus 27 mg iron- 1 mg tablet 1 tab PO DAILY Discharge Orders: Discharge Order (Routine); Ordered 07/16/23 Ordered By: Fletcher Noble Referrals: Fletcher Noble, [Physician] - 07/28/23 2:00 pm Discharge Diet: Advance as tolerated Discharge Activity: Limit activity as instructed Patient Instructions: Opioid Safety Activity Restrictions/Additional Instructions: Thank you for choosing [facility] for your care! The following is a list of instructions, from your provider, to follow upon your discharge to ensure you have the optimal recovery from your recent injury or surgery. Anterior Cervical Discectomy and Fusion: What to Expect at Home Your Recovery Follow-up care is a rodriguez part of your treatment and safety. Be sure to make and go to all appointments, and call your doctor if you are having problems. If you do not already have a follow-up appointment made, call office in the next 1-3 days to make follow up appointment for 2 weeks at [phone]. It is also a good idea to know your test results and keep a list of the medicines you take. You can expect your neck to feel stiff or sore after surgery. This should improve in the weeks after surgery. But it may take 4 to 6 months for you to get better completely. You may have trouble sitting or standing in one position for very long and may need pain medicine in the weeks after your surgery. It may take 4 to 6 weeks to get back to your usual activities, but it may depend on what kind of surgery you had. Your throat will feel sore and it may be difficult to swallow for the first 3 days after your surgery. As long as you can get liquids down without difficulty, this should slowly improve, otherwise call our office or seek medical attention if it becomes increasingly difficult to get anything down including liquids. Avoid hot liquids for first 3-5 days. Soothing foods/liquids such as jello, pudding, and luke warm soups are recommended until swallowing improves. Staying elevated will also help, it's advised you keep propped up at while sleeping to help reduce the swelling. You may use an ice pack directly on your incision or around it on the front of your neck, using a cloth to protect your skin; and a heating pad to the back of your neck as needed. Do not use over the counter anti-inflammatory medications (Ibuprofen, Motrin, Al rachel, Advil, etc) Taking these meds after having a fusion can delay fusion rates, we recommend you avoid them for the first 3 [address] your surgery[address] Dr. Noble may advise you to work with a physical therapist to strengthen the muscles around your neck and back - this will be discussed at your follow - up appointments. The pain or numbness you were having in your arms before surgery should get better or go away completely. This care sheet gives you a general idea about how long it will take for you to recover. But each person recovers at a different pace. Follow the steps below to get better as quickly as possible. How can you care for yourself at home? Activity ? Rest when you feel tired. Getting enough sleep will help you recover. ? Try to walk each day. Start by walking a little more than you did the day before. Bit by bit, increase the amount you walk. Walking boosts blood flow and helps prevent pneumonia and constipation. Walking may also decrease your muscle soreness after surgery. ? No lifting anything that is more that 5 pounds. This may include heavy grocery bags and milk containers, a heavy briefcase or backpack, cat litter or dog food bags, a child, or a vacuum curtain cleaner. ? Avoid strenuous activities, such as bicycle riding, jogging, weightlifting, or aerobic exercise, until your doctor says it is okay. ? Do not drive until your follow-up visit after your surgery, or until your doctor says it isokay. ? Avoid taking long car trips for 2 to 4 weeks after surgery. Your neck may become tired and painful from sitting too long in one position. ? You will probably need to take 4 to 6 weeks off from work. It depends on the type of work you do and how you feel. ? You may have sex as soon as you feel able, but avoid positions that put stress on your neck or cause pain. Diet ? You can eat your normal diet. If your stomach is upset, try bland, low-fat foods like plain rice, broiled chicken, toast, and yogurt ? Drink plenty of fluids. If you have kidney, heart, or liver disease and have to limit fluids, talk with your doctor before you increase the amount of fluids you drink. ? You may notice that your bowel movements are not regular right after your surgery. This is common. Try to avoid constipation and straining with bowel movements. You may want to take a fiber supplement every day. If you have not had a bowel movement after a couple of days, ask your doctor about taking a mild laxative. Medicines ? Take pain medicines exactly as directed. 1. If Dr. Noble gave you a prescription medicine for pain, take lt as prescribed. 2. Do not take two or more pain medicines at the same time unless the doctor told you to. Many pain medicines have acetaminophen, which is Tylenol. Too much acetaminophen {Tylenol) can be harmful. 3. If you think your pain pill is making you sick to your stomach: 4. Take your pills after meals (unless your doctor has told you not to). 5. Ask your Dr. for a different pain pill. Incisioncare ? Remove your dressing 48hours after your surgery. Ok to shower and get the incision wet. Do not overtly wash your incision. When done, pad dry, leave open to air thereafter. Avoid creams and ointments directly on your incision. ? Your sutures in the incision will dissolve and fall out on their own. ? Keep the area clean and dry. You may cover it with a gauze bandage if it weeps or rubs against clothing; if you choose to do this, change the dressing everyday. Other instructions ? Use a heating pad, hot water bottle, or gentle massage on your back to reduce stiffness. Avoid putting heat on your incision When should you call for help? ? Call 911 anytime you think you may need emergency care. For example, call if: ? You pass out (lose consciousness). ? You have sudden chest pain and shortness of breath, or you cough upblood. ? You cannot swallow. ? You have severe pain in your neck or back. ? Call your Dr. or seek immediate medical care if: ? You have pain that does not get better after you take pain pills. ? You have loose stitches, or your incision comes open. ? You have blood or fluid draining from the incision. ? You have signs of infection, such as: 1. Increased pain, swelling, warmth, or redness. 2. Red streaks leading from the site. 3. Pus draining from the site. 4. Swollen lymph nodes in your neck or armpits. 5. A fever. ? You have severe pain in your arms. ? You have new or increased weakness or numbness in your arms. ? Watch closely for any changes in your health, and be sure to contact your doctor if: ? You do not have a bowel movement after taking a laxative. Discharge Attestations Time Spent in Discharge Care*: less than 30 min Quality Metrics Clinical Quality Measures [ No reported AMI, CVA or VTE this stay] Coding Level of Care Code Acute Code for [facility] Diagnoses Inflammatory arthritis M19.90
[2023-07-16 07:46] VITALS: BP 135/83; PULSE 86; RESP 14; TEMP 37.1; O2SAT 99
--- OUTSIDE RECORDS SUMMARY | 2023-07-16 08:56 | XMS_ITS | Patient Health Record ---
Author Name Unknown Organization [facility] Address [address] [place] [place] [address] Care Team Providers Care Hematologist Name Role Phone Dailey, [facility] Primary Care Provider [phone] DAILEY, RIC Unavailable Unavailable ALLERGIES Allergen (clinical drug ingredient) Drug/Non Drug Allergy documented on EMR Reaction Allergy Type Onset Date Status citalopram CeleXA swelling Drug Allergy Active escitalopram Lexapro swelling Drug Allergy Acti ve Latex Latex rash Allergy Active RESULTS Component Value Reference Range Notes CBC w\ Auto Diff [id number] Reviewed date:01/23/2023 11:17:28 AM Interpretation: Performing Lab: Notes/Report: Instr WBC WBC RBC Hgb Hct MCV MCH MCHC Platelet RDW-SD RDW-CV MPV Neutro Auto% Lymph Auto% [place] Auto% Eos Auto% Baso Auto% Imm Gran% Neutro Abs Lymph Abs [place] Abs Eos Abs Baso Abs Imm Gran Abs NRBC# NRBC% X Absolute Neutrophil Count REASON FOR REFERRAL No Information MEDICATIONS Medication SIG (Take, Route, Frequency, Duration) Notes Start Date End Date Status Pregabalin 150 MG 1 capsule Oral Twice a day for 30 Active Diclofenac Sodium 75 MG 1 tab Orally Twi ce a day pc prn inflammatory pain for 30 days Not-Taking Mounjaro 15 MG/0.5ML 15 mg Subcutaneous weekly for 30 days Active Triamterene-HCTZ 37.5-25 MG 1 tab Oral O nce a day prn swelling for 90 days Active Vitamin D (Ergocalciferol) 1.25 MG (08340 UT) TAKE ONE CAPSULE BY MOUTH ONCE WEEKLY Orally weekly for 90 days Active Furosemide 20 MG 1 tablet Orally Once a day prn severe swelling for 90 days Active metFORMIN HCl ER 500 mg TAKE ONE TABLET BY MOUTH with evening meal Orally Once a day for 90 days Active Levothyroxine Sodium 50 MCG TAKE ONE TAB LET BY MOUTH DAILY Oral for 30 Days Active Hydroxychloroquine Sulfate 200 MG Oral for 30 Active Leflunomide 20 MG 1 tablet Orally Once a day Active FreeStyle Francisca 14 Day Christmas - as directed sub q as directed for 30 days Active ALPRAZolam 0.5 mg TAKE 1/2-1 TABLET BY MOUTH TWICE DAILY NEEDED FOR ANXIETY for 30 12/01/2022 Active buPROPion HCl ER (XL) 300 MG 1 tab Orally Once a day for 90 days Active Baclofen 10 MG Oral for 30 Days Active M- Plus 27-1 MG 1 tablet Orally Onc e a day for 90 days Active SOCIAL HISTORY Tobacco Use: Social History Observation Description Date Details (start date - stop date) Never Smoker NA - NA Sex Assigned At : Social History Observation Description Sex Assigned At Unknown Tobacco Use/Smoking Question Answer Notes Are you a nonsmoker Alcohol Screen (Audit-C) Question Answer Notes Did you have a drink contain ing alcohol in the past year? Yes How often did you have a dri nk containing alcohol in the past year? Monthly or less (1 point) How many drinks did you have on a typical day when you were drinking in the past year? 1 or 2 drinks (0 point) How often did you have 6 or more drinks on one occasion in the past year? Never (0 point) Points 1 Interpretation Negative PHQ-9 Question Answer Notes Little interest or pleasure in doing things Not at all Feeling down, depressed, or hopeless Not at all Trouble falling or staying asleep, or sleeping t oo much Several days Feeling tired or having little energy Nearly rachel ry day Poor appetite or overeating Not at all Feeling bad about yourself, or that you are a failure, or have let yourself or your family down Several days Trouble concentrating on thi ngs, such as reading the newspaper or watching television Not at all Moving or speaking so slowly that other people could have noticed. Or the opposite ? 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) Active confirmed 841720652 Problem Pain in right hand (M79.641) Active confirmed 29758224136168122 Problem Pain in left hand (M79.642) Active confirmed 677892480848350 Problem Controlled type 2 diabetes mellitus without complication, without long-term current use of insulin (E11.9) Active confirmed 312294697 Problem Other iron deficiency anemia (D50.8) Active confirmed 31691901 Problem Anxiety (F41.9) Active confirmed 183727 02 Problem Neck pain (M54.2) Active confirmed 8168 0005 Problem Vitamin D deficiency (E55.9) Active confirmed 40200547 Problem Obesity (BMI 30-39.9) (E66.9) Active confirmed 644403916 Problem Myalgia (M79.10) Active confirmed 05941 001 Problem Rheumatoid arthritis involving multiple sites with positive rheumatoid factor (M05.79) Active confirmed 655639366 Problem Onychomycosis (B35.1) Active confirmed 408732353 Problem Other depression (F32.89) Active confirmed 84459645 Problem Positive NING (antinuclear antibody) (R76.8) Active confirmed 740155697 Problem Morbid obesity (E66.01) Active confirmed 376006980 Problem Anxiety, generalized (F41.1) Active confirmed Generalized anx iety disorder (87161439) Problem Paresthesia (R20.2) Active confirmed 18572628 Problem Inflammatory arthritis (M19.90) Active confirmed 6931351 Problem Acute swimmer's ear of left side (H60.332) Active confirmed 94815853 Problem Open wound of left foot, initial encounter (S91.302A) Active confirmed 70426449815051890 Problem Diabetes mellitus (E11.9) Active confirmed Diabetes mellit (62429785) Problem Body mass index [BMI] 31.0-31.9, adult (Z68.31) Active confirmed 893364458 Problem Body mass index [BMI] 33.0-33.9, adult (Z68.33) Active confirmed 049822533 Problem Body mass index [BMI] 35.0-35.9, adult (Z68.35) Active confirmed 579364078 Problem Body mass index [BMI] 36.0-36.9, adult (Z68.36) Active confirmed 777687963 Problem Body mass index [BMI] 37.0-37.9, adult (Z68.37) Active confirmed 055954564 Problem Primary osteoarthritis involving multiple joints (M15.9) Active confirmed VITAL SIGNS Heart Rate 98 /min 07/07/2023 Temperature 97.3 degrees Fahrenheit 07/07/2023 Respiratory Rate 18 /min 07/07/2023 Oximetry 97 % 07/07/2023 Height-cm 170.18 cm 07/07/2023 Blood pressure diastolic 84 mm Hg 07/07/2023 Weight-kg 88 kg 07/07/2023 Height 67 in 07/07/2023 Blood pressure systolic 120 mm Hg 07/07/2023 Weight 194 lbs 07/07/2023 BMI 30.38 kg/m2 07/07/2023 Encounters Encounter Location Date Provider Diagnosis [address] [address] 08/20/[address] [address] 01/09/2023 [facility] Controlled type 2 diabetes mellitus without complication, without long-term current use of insulin E11.[address] [address] 07/07/2023 [facility] Controlled type 2 diabetes mellitus without complication, without long-term current use of insulin E11.9 ; Other depression F32.89 ; Swelling R60.9 ; Other iron deficiency anemia D50.8 ; Vitamin D deficiency E55.9 ; Long-term (current) use of injectable non-insulin antidiabetic drugs Z79.85 and penitentiary (current) use of oral hypoglycemic drugs Z79.[address] [address] 09/18/2022 [facility] [address] [address] 10/02/2022 [facility] Controlled type 2 diabetes mellitus without complication, without long-term current use of insulin E11.9 ; Rheumatoid arthritis involving multiple sites with positive rheumatoid factor M05.79 ; Concussion with loss of consciousness of 30 minutes or less, initial encounter S06.0X1A ; Paresthesia R20.2 and Fall, subsequent encounter W19.XXXD [facility] [address] [address] 10/27/2022 [facility] Controlled type 2 diabetes mellitus without complication, without long-term current use of insulin E11.9 ; Inflammatory arthritis M19.90 ; Blister of toe of right foot, initial encounter S90.424A and penitentiary (current) use of oral hypoglycemic drugs Z79.84 [facility] [address] [address] 01/09/2023 [facility] [address] [address] 08/19/2022 [facility] Controlled type 2 diabetes mellitus without complication, without long-term current use of insulin E11.9 ; Other iron deficiency anemia D50.8 ; Obesity (BMI 30-39.9) E66.9 ; Other depression F32.89 ; Anxiety F41.9 ; Inflammatory arthritis M19.90 ; Swelling R60.9 ; salvage determiner (current) use of oral hypoglycemic drugs Z79.84 ; Long-term (current) use of injectable non-insulin antidiabetic drugs Z79.85 and Body mass index [BMI] 31.0-31.9, adult Z68.31 ASSESSMENTS Encounter Date Diagnosis Assessment Notes Treatment Notes Treatment Clinical Notes 10/27/2022 Controlled type 2 diabetes mellitus without complication, without long-term current use of insulin (ICD-10 - E11.9) increase mounjaro 10/27/2022 Inflammatory arthritis (ICD-10 - M19.90) rheumatology as planned 07/07/2023 Controlled type 2 diabetes mellitus without complication, without long-term current use of insulin (ICD-10 - E11.9) evaristo summers metformin monitor bs 07/07/2023 Other depression (ICD-10 - F32.89) wellbutrin 01/09/2023 Controlled type 2 diabetes mellitus without complication, without long-term current use of insulin (ICD-10 - E11.9) 10/02/2022 Controlled type 2 diabetes mellitus without complication, without long-term current use of insulin (ICD-10 - E11.9) metformin er 500 (stop present metformin continue mounjaro monitor bs 10/02/2022 Rheumatoid arthritis involving multiple sites with positive rheumatoid factor (ICD-10 - M05.79) follow up rheumatology as planned dr dover 08/19/2022 Controlled type 2 diabetes mellitus without complication, without long-term current use of insulin (ICD-10 - E11.9) refill freestyle metformin mounjaro glipizide as directed 08/19/2022 Other iron deficiency anemia (ICD-10 - D50.8) vit 08/19/2022 Obesity (BMI 30-39.9) (ICD-10 - E66.9) Discussed with the diet, increase water intake, increase activity, decrease calorie intake, take medication as directed; phentermine e script to patient pharmacy. Patient to lose minimum of 4 pounds and return to clinic 1 month and prn. Pts questions asked and answered. Discharged to home. 07/07/2023 Swelling (ICD-10 - R60.9) maxzide lasix 10/02/2022 Concussion with loss of consciousness of 30 minutes or less, initial encounter (ICD-10 - S06.0X1A) 10/27/2022 Blister of toe of right foot, initial encounter (ICD-10 - S90.424A) septra ds 10/27/2022 penitentiary (current) use of oral hypoglycemic drugs (ICD-10 - Z79.84) 07/07/2023 Other iron deficiency anemia (ICD-10 - D50.8) 10/02/2022 Paresthesia (ICD-10 - R20.2) mri 08/19/2022 Other depression (ICD-10 - F32.89) wellbutrin 08/19/2022 Anxiety (ICD-10 - F41.9) alprazolam 10/02/2022 Fall, subsequent encounter (ICD-10 - W19.XXXD) 07/07/2023 Vitamin D deficiency (ICD-10 - E55.9) 07/07/2023 Long-term (current) use of injectable non-insulin antidiabetic drugs (ICD-10 - Z79.85) 08/19/2022 Inflammatory arthritis (ICD-10 - M19.90) tylenol #3 08/19/2022 Swelling (ICD-10 - R60.9) maxzide lasix 07/07/2023 salvage determiner (current) use of oral hypoglycemic drugs (ICD-10 - Z79.84) 08/19/2022 salvage determiner (current) use of oral hypoglycemic drugs (ICD-10 - Z79.84) 08/19/2022 Long-term (current) use of injectable non-insulin antidiabetic drugs (ICD-10 - Z79.85) 08/19/2022 Body mass index [BMI] 31.0-31.9, adult (ICD-10 - Z68.31) 08/19/2022 Other Questions asked and answered; discharged to home. 10/02/2022 Other Questions asked and answered; discharged to home. 10/27/2022 Other Questions asked and answered; discharged to home. 07/07/2023 Other Questions asked and answered; discharged to home. PLAN OF TREATMENT Pending Test Test Name Order Date MRI Brain w/ + w/o Cont-[id number] 10/02/2022 Next Appt Details Provider Name:[place], 10/06/2023 04:20:00 PM, [address], [address], MEDICATIONS ADMINISTERED Medication Instructions Date of Administration Dosage Notes DEPO-Medrol 11/01/2021 40 mg NDC: [address]-91 Patient tolerated well, advised to wait 20 min at clinic DEPO-Medrol 12/13/2021 40 mg NDC: [address]-16 Injection given per verbal order from [facility], [employer]. Patient tolerated well, advised to wait 20 min at clinic DEPO-Medrol 12/31/2021 40 mg ndc 53618-435 3-1 pt tolerated well/instructed to wait 20 min dexAMETHasone 11/01/2021 4 mg NDC: 58494-652-77 Patient tolerated well, advised to wait 20 min at clinic dexAMETHasone 12/13/2021 4 mg NDC: 58463-118-58 Injection given per verbal order from [facility], [employer]CRE[employer]. Patient tolerated well, advised to wait 20 min at clinic dexAMETHasone 12/31/2021 4 mg ndc 79204-3 39-30 pt tolerated well/instructed to wait 20 min Ketorolac Tromethamine 12/13/2021 [address] [facility]: 25866-654-45 Injection given per verbal order from Ric Dailey, POL[employer] SCREW[employer]. Patient tolerated well, advised to wait 20 min at clinic MEDICAL (GENERAL) HISTORY Medical History History ICD Code type II diabetes PCOS depression anxiety allergies Surgical History Surgery Date(Month/Year) cholecystectomy 1998 D&C x4 2015,2017,2018,2020 tubal 2020 carpal tunnel release 2021 Hospitalization History Reason Date(Month/Year) cholecystectomy 1998 stillbirth 2013
[2023-07-16 10:14] VITALS: BP 135/83; PULSE 86; RESP 14; TEMP 37.1; O2SAT 99
--- NOTE | 2023-07-16 10:59 | PC.SOCIAL ---
Patient was discharged and had already left facility before CM got to see her.
== END 2023-07-16 09:50 | disposition home or self-care (01) | DRG 473 ==
LOC: MEDSURG 10:16
PROVIDERS: Admitting Provider Orthopaedic Surgery; PCP Nurse Practitioner Family; Visit Provider Orthopaedic Surgery
PROC: 0RB30ZZ Excision of Cervical Vertebral Disc, Open Approach (ICD-10-PCS; CPT 22551; principal; 2023-07-15 07:00)
DX: M47.12 Other spondylosis with myelopathy, cervical region (principal); E11.9 Type 2 diabetes mellitus without complications; F32.A Depression, unspecified; F41.9 Anxiety disorder, unspecified; E66.01 Morbid (severe) obesity due to excess calories; K21.9 Gastro-esophageal reflux disease without esophagitis; E03.9 Hypothyroidism, unspecified; Z79.84 Long term (current) use of oral hypoglycemic drugs; Z68.29 Body mass index [BMI] 29.0-29.9, adult
CPT/HCPCS: 36416; 51702; 72040; 76000; 82962; 97161; C1713; C1763; C9359; J0330; J0690; J1100; J1885; J2250; J2270; J2405; J2704; J3010; J3490; J7030; J7120

== ENCOUNTER → 2023-08-25 15:42 | Outpatient (BNVA) | payer OTHER, SELFPAY | PROVIDERS: PCP Nurse Practitioner Family; Visit Provider Orthopaedic Surgery | DX: Z98.1 Arthrodesis status (principal) | CPT/HCPCS: 72040 ==

== ENCOUNTER → 2023-10-06 07:55 | Outpatient (BNVA) | payer OTHER, SELFPAY | PROVIDERS: PCP Nurse Practitioner Family; Visit Provider Orthopaedic Surgery | DX: Z98.1 Arthrodesis status (principal) | CPT/HCPCS: 72040 ==

== ENCOUNTER 2023-10-22 13:56 | Outpatient (RCR) | payer OTHER, SELFPAY | END 2023-11-13 23:59 | disposition home or self-care (01) | LOC: SPT 13:56 | PROVIDERS: PCP Nurse Practitioner Family; Visit Provider Orthopaedic Surgery | DX: Z98.890 Other specified postprocedural states (principal) | CPT/HCPCS: 97110; 97140; 97162 ==

== ENCOUNTER 2023-11-14 06:00 | Outpatient (RCR) | payer OTHER, SELFPAY | END 2023-11-20 23:59 | disposition home or self-care (01) | LOC: SPT 06:00 | PROVIDERS: PCP Nurse Practitioner Family; Visit Provider Orthopaedic Surgery | DX: Z98.890 Other specified postprocedural states (principal) | CPT/HCPCS: 97110; 97140 ==

== ENCOUNTER → 2023-12-03 14:17 | Outpatient (BNVA) | payer OTHER, SELFPAY | PROVIDERS: PCP Nurse Practitioner Family; Visit Provider Orthopaedic Surgery | DX: Z98.1 Arthrodesis status (principal) | CPT/HCPCS: 72040 ==

== ENCOUNTER 2024-02-29 12:13 | Outpatient (CLI) | payer OTHER, SELFPAY ==
[2024-02-29 12:47] LABS: Basophils # 0.1 10^3/uL (0.0-0.1); Basophils % 1.1 %; Eosinophils # 0.2 10^3/uL (0.0-0.8); Eosinophils % 2.4 %; Hematocrit 38.9 % (36-47); Lymphocytes # 2.5 10^3/uL (0.8-4.8); Lymphocytes % 32.9 %; Mean Corpuscular HGB Conc 32.4 g/dL (30-55); Mean Corpuscular Volume 86.4 fl (85-98); Mean Platelet Volume 10.3 fL (7.4-10.4); Monocytes # 0.7 10^3/uL (0.2-0.9); Monocytes % 8.7 %; Neutrophils # 4.05 10^3/uL (1.8-7.7); Neutrophils % 54.5 %; Nucleated Red Blood Cells % 0 %; Platelet Count 234 10^3/cmm (157-399); White Blood Count 7.44 10^3/uL (3.29-11.43)
[2024-02-29 12:51] LABS: Erythrocyte Sedimentation Rate 9 mm/hr (0-15)
[2024-02-29 13:20] LABS: Alanine Aminotransferase 17 U/L (0-33); Albumin Level 4.3 g/dL (3.5-5.2); Alkaline Phosphatase 83 U/L (35-105); Aspartate Amino Transferase 23 U/L (0-32); Free T4 Free Thyroxine 1.27 ng/dL (0.82-1.77); Globulin 3.2 g/dL (1.3-4.6); Glomerular Filtration Rate 54.7 mL/min (90-130); Total Bilirubin 0.2 mg/dL (0.15-1.2); Total Protein 7.5 g/dL (6.6-8.7)
== END 2024-02-29 12:14 | disposition home or self-care (01) ==
LOC: LAB 12:14
PROVIDERS: Absent Provider Internal Medicine Rheumatology; PCP Nurse Practitioner Family; Visit Provider Internal Medicine
DX: M19.90 Unspecified osteoarthritis, unspecified site (principal); Z79.899 Other long term (current) drug therapy; E06.3 Autoimmune thyroiditis
CPT/HCPCS: 36415; 80076; 82565; 84439; 84443; 85025; 85651; 86140

== ENCOUNTER 2024-03-07 16:00 | Outpatient (CLI) | payer OTHER, SELFPAY ==
--- NOTE | 2024-03-07 16:00 | MR_ITS ---
WS: [id number] MRI THORACIC SPINE with and without contrast HISTORY: M47.12 - Other spondylosis with myelopathy, cervical region COMPARISON: None available. TECHNIQUE: Multiplanar sequences are performed in sagittal and axial planes. MultiHance 18 mL. Prior anterior cervical fusion at C3-C6. Posterior thoracic alignment is normal. No marrow edema or fracture. Small Schmorl's nodes at T6, T7 and T8. Mild disc space narrowing throughout the thoracic spine. No cord atrophy or enlargement. T1-2: Normal. T2-3: Shallow bilateral paracentral disc protrusions and facet arthritis. Mild foraminal stenosis. T3-4: Bilateral facet joint arthritis. Mild foraminal stenosis. T4-5: Mild facet arthritis. T5-6: Mild facet arthritis. T6-7: Normal. T7-8: Central to LEFT paracentral disc protrusion with very minimal effacement of CSF. No cord displa cement. Bilateral facet arthritis. T8-9: Bilateral facet arthritis. T9-10: Bilateral facet arthritis. T10-11: Moderate bilateral facet joint arthritis encroaching into the posterior lateral thecal sac. M inimal foraminal narrowing. T11-12: Normal. Paravertebral soft tissues are normal. No areas of abnormal enhancement. No discitis or osteomyelitis. No mass. MR/MR thoracic spine wo/w [id number] IMPRESSION: 1. Multilevel mild facet joint arthritis throughout the thoracic spine. Modera te facet joint arthritis at T10-11 with mild encroachment into the posterior th ecal sac. 2. Shallow bilateral paracentral disc protrusions at T2-3 and central to LEFT paracentral disc protrusion at T7-8. Effacement of CSF at T7-8. No contact on t he cord. 3. No acute fracture. 4. No cord edema. 5. No enhancing mass.
== END 2024-03-07 16:01 | disposition home or self-care (01) ==
PROVIDERS: PCP Nurse Practitioner Family; Visit Provider Psychiatry & Neurology Neurology
DX: M47.12 Other spondylosis with myelopathy, cervical region (principal); M48.02 Spinal stenosis, cervical region; Z98.1 Arthrodesis status; M51.44 Schmorl's nodes, thoracic region; M51.24 Other intervertebral disc displacement, thoracic region; M47.814 Spondylosis without myelopathy or radiculopathy, thoracic region; M48.04 Spinal stenosis, thoracic region
CPT/HCPCS: 72157

== ENCOUNTER 2024-04-27 11:25 | Outpatient (CLI) | payer OTHER, SELFPAY ==
--- NOTE | 2024-04-27 11:29 | MM_ITS ---
WS: [id number] BILATERAL SCREENING DIGITAL TOMOSYNTHESIS MAMMOGRAM WITH CAD HISTORY: SCREENING COMPARISON: None available. Bilateral CC and MLO views with tomosynthesis and synthetic mammography submitted. Computer aided det ection analyzed. Breast composition: The breasts are heterogeneously dense, which may obscure small masses. No suspici ous masses, microcalcifications or architectural distortion. Numerous scattered small calcifications within each breast. No cluster of calcifications. MM/MM scr tomosynthesis [id number] IMPRESSION: BI-RADS: 2 - Benign FOLLOW UP: 1 Year Follow-up
== END 2024-04-27 11:26 | disposition home or self-care (01) ==
LOC: RAD 11:25
PROVIDERS: PCP Nurse Practitioner Family; Visit Provider Nurse Practitioner Family
DX: Z12.31 Encounter for screening mammogram for malignant neoplasm of breast (principal)
CPT/HCPCS: 77063; 77067

== ENCOUNTER 2024-05-16 16:32 | Outpatient (CLI) | payer OTHER, SELFPAY ==
[2024-05-16 18:55] LABS: Alanine Aminotransferase 16 U/L (0-33); Albumin Level 4.2 g/dL (3.5-5.2); Alkaline Phosphatase 75 U/L (35-105); Anion Gap 20.4 (5-19); Aspartate Amino Transferase 20 U/L (0-32); Blood Urea Nitrogen 18 mg/dL (6-20); Calcium 9.2 mg/dL (8.5-10.5); Carbon Dioxide 24 mmol/L (22-29); Chloride 99 mmol/L (98-107); Chol HDL Ratio 3.92 mg/dL (0.0-4.40); Cholesterol 188 mg/dL (0-200); Globulin 2.8 g/dL (1.3-4.6); Glomerular Filtration Rate 54.7 mL/min (90-130); Glucose 77 mg/dL (65-115); HDL Cholesterol 48 mg/dL (60-100); LDL Cholesterol Calculated 90 mg/dL (50-129); LDL HDL Ratio 1.88 RATIO (0.00-3.22); Osmolality Calculated 291 mOsm/kg (285-295); Potassium 3.4 mmol/L (3.5-5.1); Sodium 140 mmol/L (136-145); Total Bilirubin 0.2 mg/dL (0.15-1.2); Triglycerides 249 mg/dL (0-150)
[2024-05-16 19:00] LABS: Creatinine Urine, Random 262 mg/dL (28-217); Microalbum Creatinine Ratio Ur 27 mg/dL (0-20); Microalbumin Random Urine 7 ug/dL (0-20)
[2024-05-16 19:40] LABS: Estmated Average Glucose 94; Hemoglobin A1C 4.9 % (4.0-6.0)
== END 2024-05-16 16:33 | disposition home or self-care (01) ==
LOC: LAB 16:33
PROVIDERS: Absent Provider Internal Medicine Rheumatology; PCP Nurse Practitioner Family; Visit Provider Internal Medicine
DX: E11.9 Type 2 diabetes mellitus without complications (principal); E78.2 Mixed hyperlipidemia
CPT/HCPCS: 80053; 80061; 82044; 83036; 84443

== ENCOUNTER 2024-06-14 11:57 | Emergency (ER) | payer OTHER, SELFPAY ==
[2024-06-14] VITALS (7 sets, daily range): BP systolic 113–158; BP diastolic 61–91; PULSE 86–110; RESP 16; TEMP 36.5; O2SAT 97–100; BMI 30.4
--- NOTE | 2024-06-14 13:00 | ED_ITS ---
HPI - Abdominal Pain 2 General: Chief Complaint: Abdominal Pain Stated Complaint: stomacvh pain Time Seen by Provider: 06/14/24 12:56 Source: patient Mode of arrival: ambulatory Limitations: no limitations History of Present Illness: Patient is a nice 43-year-old female presents to ED today with complaint of left upper abdominal and epigastric pain. Patient states the pain has been present over the past few months. She describes it as a burning/squeezing discomfort. She states pain is usually constant but if she fasts for long periods of time, she can sometimes get pain to alleviate. Pain is significantly worse with eating especially spicy foods. She has used [id number] Tums and Gaviscon without any relief. She does not feel like pain radiates into her back. She is not having any flank pain. Denies chest pain, shortness of breath, difficulty breathing. She was reportedly seen at the walk-in clinic today and referred to the emergency department. No history of pancreatitis. MD elicited complaint: abdominal pain Pertinent past history: none Onset (ago): month(s) Pain Consistency: constant Location: Epigastric and LUQ Severity: severe Pain scale (0-10): 7 Quality: burning and other (sqeezing) Radiation: none Migration to: no migration Exacerbating factors: eating Relieving factors: nothing Associated Symptoms: Reports nausea; Denies belching, chills, diarrhea, dysuria, excessive flatus, fever(s), hematochezia, hematemesis, melena, syncope and vomiting Related Data Home Medications Medication Instructions Recorded Confirmed ergocalciferol (vitamin D2) 1,250 1,250 mcg PO Q7D 09/18/22 06/14/24 mcg (50,000 unit) capsule (Vitamin D2) metformin 500 mg tablet,extended 500 mg PO DAILY 10/27/22 06/14/24 release 24 hr triamterene 37.5 1 tab PO DAILY PRN bp 03/18/23 06/14/24 mg-hydrochlorothiazide 25 mg tablet bupropion HCl 300 mg 24 hr tablet, 300 mg PO DAILY 07/16/23 06/14/24 extended release furosemide 20 mg tablet (Lasix) 20 mg PO DAILY PRN SWELLING 07/16/23 06/14/24 tirzepatide 15 mg/0.5 mL 15 mg SUBCUT Q7D 04/19/24 06/14/24 subcutaneous pen injector (Mounjaro) levothyroxine 50 mcg tablet 50 mcg PO QAM 06/14/24 06/14/24 pregabalin 150 mg capsule (Lyrica) See Rx Instructions .Route .COMPLEX 06/14/24 06/14/24 Previous Rx's Medication Instructions Recorded alprazolam 0.5 mg tablet (Xanax) 0.5 - 1 mg (1 - 2 x 0.5 mg) PO TID 07/20/20 PRN anxiety #20 tabs liothyronine 5 mcg tablet (Cytomel) 5 mcg PO DAILY #90 tabs 05/17/24 hydroxychloroquine 200 mg tablet 200 mg PO BID #180 tabs 05/23/24 leflunomide 20 mg tablet 20 mg PO DAILY #90 tabs 05/23/24 prednisone 10 mg tablet See Rx Instructions PO .COMPLEX 05/23/24 PRN joint pain #30 tabs sulfasalazine 500 mg tablet 1 g (2 x 500 mg) PO BID #120 tabs 05/23/24 pantoprazole 40 mg tablet,delayed 40 mg PO BID 3 weeks #42 tabs 06/14/24 release (Protonix) sucralfate 1 gram tablet (Carafate) 1 g PO TID 2 weeks #42 tabs 06/14/24 Allergies Allergy/AdvReac Type Severity Reaction Status Date / Time citalopram [From Celexa] Allergy Intermediate swelling Verified 06/14/24 12:21 all over cephalexin Allergy Vomiting Verified 06/14/24 12:21 latex Allergy Rash Verified 06/14/24 12:21 tramadol Allergy Nausea Verified 06/14/24 12:21 Review of Systems 2 Const: Denies: fever(s), chills, body aches, fatigue or malaise Eyes: Denies: change in vision or blurry vision Card: Denies: chest pain, palpitations, irregular heart rhythm, lightheadedness, syncope or dyspnea on exertion Resp: Denies: dyspnea, productive cough or pain on inspiration GI: Reports: abdominal pain and nausea; Denies: vomiting, hematemesis, dysphagia, diarrhea, belching, excessive flatus, hematochezia or melena : Denies: flank pain, difficulty voiding, dysuria, urinary frequency, urinary urgency or urinary hesitancy Musc: Denies: neck pain, back pain or joint pain Skin/Breast: Denies: rash Neuro: Denies: headache(s) or dizziness PFSH ED 2 PFSH: Medical History Trochanteric bursitis of both hips Seronegative rheumatoid arthritis of both hands RF, CCP negative, NING were negative Anti-TPO antibodies present Diabetes mellitus, type II High risk medication use Inflammatory arthritis Depression Anxiety Joint pain Muscle spasms of both lower extremities Menstrual migraine Obesity Gastroesophageal reflux Polycystic ovarian syndrome Surgical History History of carpal tunnel release left 07/26/2021 S/P tubal ligation (10/02/20) Laparoscopic complete salpingectomy. Performed by Dr. Cartwright at [facility] in [place], [place]. Hx of dilation and curettage (07/23/20) Treatment of blighted ovum. Performed by Dr. Cartwright at [facility] in [place], [place] History of cholecystectomy (~03/1999) Laparoscopic. Performed at [facility] in [place], [place] Hx of dilation and curettage (03/24/19) Treatment of Missed . Performed by Dr. Cartwright at [facility] in [place], [place]. History of dilation and curettage (11/26/16) Treatment of miscarriage. Performed by Dr. Cartwright at [facility] in [place], [place]. History of dilation and curettage (12/25/15) Treatment of missed . D&C with suction performed. Performed by Dr. Cartwright at [facility] in [place], [place]. Family History Mother Hypertension Grandmother Heart disease Maternal Diabetes Maternal Family/Other Breast cancer Maternal great aunt Diabetes Maternal great-grandmother Family/Other No problems noted. Other Cancer Family history of premature coronary artery disease Denies family history of Rheumatoid arthritis Lupus Chronic kidney disease (CKD) Stroke Social History Smoking and tobacco/nicotine status: never used tobacco/nicotine Alcohol intake: never Substance/Drug Use: never Current occupation: computer Physical Exam 2 Const: COMMON NORMALS: no acute distress, average body habitus, patient oriented x3, no limitations, healthy appearing, alert and well nourished G ENERAL APPEARANCE: cooperative ORIENTATION/CONSCIOUSNESS: Yes awake, Yes oriented to person, Yes oriented to place and Yes oriented to time HENMT: COMMON NORMALS: normocephalic and atraumatic HEAD & SCALP: n ormocephalic and atraumatic Eye: COMMON NORMALS: no scleral icterus Neck/C-Spine: COMMON NORMALS: full ROM, no lymphadenopathy, supple and no meningeal signs Chest: COMMONS NORMALS: normal inspection of the chest Resp: COMMON NORMALS: normal respiratory effort and clear to auscultation bilaterally AUSCULTATION: clear to auscultation bilaterally Cardio: COMMON NORMALS: regular rate and regular rhythm RATE: regular rate RHYTHM: regular rhythm GI: COMMON NORMALS: Normal to inspection, nondistended, normoactive bowel sounds present, Soft to palpation, No hepatosplenomegaly present and no masses INSPECTION: Yes normal to inspection AUSCULTATION: Yes normoactive bowel sounds PALPATION: Yes Soft to palpation, Yes Tenderness to palpation present (GI) (epigastric ) Details: LUQ, No Guarding due to palpation present (GI), No Rigid due to palpation and Yes No hepatosplenomegaly present : COMMON NORMALS: Yes no CVA tenderness BLADDER/KIDNEY EXAM: Yes no CVA tenderness Back/Pelvis: COMMON NORMALS: no CVA tenderness and thoracic and lumbar spine normal to inspection Extremity: COMMON NORMALS: normal to inspection GENERAL: Yes normal exam except as noted Neuro: COMMON NORMALS: patient oriented x3 SENSORIUM/ORIENTATION: Yes alert, Yes oriented to person, Yes oriented to place and Yes oriented to time MENINGEAL SIGNS: Yes no meningeal signs Skin: COMMON NORMALS: no rashes or lesions noted GENERAL SKIN EXAM: no rashes or lesions noted Course 2 Vital Signs: Vital signs: Vital Signs Temperature 97.7 F 06/14/24 12:14 Pulse Rate 87 06/14/24 15:30 Respiratory Rate 16 06/14/24 14:00 Blood Pressure 113/67 06/14/24 15:30 Pulse Oximetry 100 06/14/24 15:30 Oxygen Delivery Me thod Room Air 06/14/24 15:30 MDM - Abdominal Pain Medical Decision Making Patient is a 43-year-old female here for left upper quadrant and epigastric abdominal pain over the past several months worse over the last 48 hours. She is not running fevers. No vomiting or diarrhea. Vital signs are stable. Blood work showing a normal white count. Her H/H are stable. Chemistry is overall unremarkable. She does have chronic mild elevations to her creatinine. Lipase is scantly elevated at 92. She has no previous history of pancreatitis. LFTs/tbili normal. Her UA is clear. CT scan showing no acute findings. Pancreas appears normal on imaging. GI cocktail was attempted here and she stated this made her pain worse. Her pain has worsened at home with eating. We will trial her on Carafate and Protonix. Will get her set up with general surgery/GI for further evaluation for possible endoscopy. DDx includes gastritis, peptic ulcer disease, GERD/acid reflux, pancreatitis, h. pylori, etc. Return precautions discussed. Medical Records I reviewed the patient's medical records. Lab Data I reviewed the patient's lab results. 06/14/24 13:09 06/14/24 13:09 Labs/Radiology: Radiology Impressions Abdomen/Pelvis CT 06/14/24 13:17 IMPRESSION: No acute findings. Laboratory Results WBC 8.29 10^3/uL (3.29-11.43) 06/14/24 13:09 RBC 4.74 10^6/uL (3.85-5.65) 06/14/24 13:09 Hgb 13.00 g/dL (11.27-16.99) 06/14/24 13:09 Hct 41.7 % (36-47) 06/14/24 13:09 MCV 88.0 fl (85-98) 06/14/24 13:09 MCH 27.4 pg (27-33) 06/14/24 13:09 MCHC 31.2 g/dL (30-55) 06/14/24 13:09 RDW 13.2 % (12.1-15.1) 06/14/24 13:09 Plt Count 300 10^3/cmm (157-399) 06/14/24 13:09 MPV 9.7 fL (7.4-10.4) 06/14/24 13:09 Neut % (Auto) 55.9 % 06/14/24 13:09 Lymph % (Auto) 34.9 % 06/14/24 13:09 [place] % (Auto) 6.3 % 06/14/24 13:09 Eos % (Auto) 1.4 % 06/14/24 13:09 Baso % (Auto) 1.3 % 06/14/24 13:09 Neut # (Auto) 4.63 10^3/uL (1.8-7.7) 06/14/24 13:09 Lymph # (Auto) 2.9 10^3/uL (0.8-4.8) 06/14/24 13:09 [place] # (Auto) 0.5 10^3/uL (0.2-0.9) 06/14/24 13:09 Eos # (Auto) 0.1 10^3/uL (0.0-0.8) 06/14/24 13:09 Baso # (Auto) 0.1 10^3/uL (0.0-0.1) 06/14/24 13:09 Nucleated RBC % (auto) 0 % 06/14/24 13:09 Nucleated RBCs # 0.0 /100WBC 06/14/24 13:09 Sodium 142 mmol/L (136-145) 06/14/24 13:09 Potassium 3.8 mmol/L (3.5-5.1) 06/14/24 13:09 Chloride 102 mmol/L (98-107) 06/14/24 13:09 Carbon Dioxide 29 mmol/L (22-29) 06/14/24 13:09 Anion Gap 14.8 (5-19) 06/14/24 13:09 BUN 20 mg/dL (6-20) 06/14/24 13:09 Creatinine 1.3 mg/dL (0.5-0.9) H 06/14/24 13:09 GFR Calculation 45.1 mL/min (90-130) L 06/14/24 13:09 Glucose 93 mg/dL (65-115) 06/14/24 13:09 Calculated Osmolality 296 mOsm/kg (285-295) H 06/14/24 13:09 Calcium 9.6 mg/dL (8.5-10.5) 06/14/24 13:09 Total Bilirubin 0.2 mg/dL (0.15-1.2) 06/14/24 13:09 AST 19 U/L (0-32) 06/14/24 13:09 ALT 17 U/L (0-33) 06/14/24 13:09 Alkaline Phosphatase 91 U/L (35-105) 06/14/24 13:09 Total Protein 7.2 g/dL (6.6-8.7) 06/14/24 13:09 Albumin 4.6 g/dL (3.5-5.2) 06/14/24 13:09 Globulin 2.6 g/dL (1.3-4.6) 06/14/24 13:09 Lipase 92 U/L (13-60) H 06/14/24 13:09 HCG, Qual Negative (Negative) 06/14/24 13:09 Urine Color Yellow (Yellow) 06/14/24 13:10 Urine Appearance Cloudy (CLEAR) A 06/14/24 13:10 Urine pH 8.0 (5-7) A 06/14/24 13:10 Ur Specific [place] 1.016 (1.005-1.030) 06/14/24 13:10 Urine Protein Negative (Negative) 06/14/24 13:10 Urine Glucose (UA) Negative (Normal) 06/14/24 13:10 Urine Ketones Negative (Negative) 06/14/24 13:10 Urine Blood Negative (Negative) 06/14/24 13:10 Urine Nitrate Negative (Negative) 06/14/24 13:10 Urine Bilirubin Negative (Negative) 06/14/24 13:10 Urine Urobilinogen 0.2 mg/dL (Negative) 06/14/24 13:10 Ur Leukocyte Esterase Negative (Negative) 06/14/24 13:10 Urine RBC 0-2 /hpf (0-2) 06/14/24 13:10 Urine WBC 0-5 /hpf (0-5) 06/14/24 13:10 Ur Squamous Epith Cells 0-5 /hpf (0-5) 06/14/24 13:10 Amorphous Sediment Not Reportable 06/14/24 13:10 Urine Bacteria Exceeds /hpf (NONE) 06/14/24 13:10 Hyaline Casts 2.46 /lpf 06/14/24 13:10 All radiology interpretation(s) finalized by discharge Discharge Plan Discharge Patient Disposition: Home Clinical Impression: Epigastric abdominal pain Condition: Stable Prescriptions: New sucralfate [Carafate] 1 gram tablet 1 g PO TID 14 Days Qty: 42 0RF pantoprazole [Protonix] 40 mg tablet,delayed release (DR/EC) 40 mg PO BID 21 Days Qty: 42 0RF No Action alprazolam [Xanax] 0.5 mg tablet 0.5 - 1 mg PO TID PRN (Reason: anxiety) Qty: 20 0RF metformin 500 mg tablet extended release 24 hr 500 mg PO DAILY liothyronine [Cytomel] 5 mcg tablet 5 mcg PO DAILY Qty: 90 1RF hydroxychloroquine 200 mg tablet 200 mg PO BID Qty: 180 1RF leflunomide 20 mg tablet 20 mg PO DAILY Qty: 90 1RF prednisone 10 mg tablet See Rx Instructions PO .COMPLEX PRN (Reason: joint pain) Qty: 30 1RF Rx Instructions: Take 1 tablet by mouth daily for 3-7 days as needed for joint pain flare. sulfasalazine 500 mg tablet 1 g PO BID Qty: 120 5RF Mounjaro 15 mg/0.5 mL pen injector 15 mg SUBCUT Q7D Rx Instructions: Mondays furosemide [Lasix] 20 mg tablet 20 mg PO DAILY PRN (Reason: SWELLING) bupropion HCl 300 mg tablet extended release 24 hr 300 mg PO DAILY levothyroxine 50 mcg tablet 50 mcg PO QAM pregabalin [Lyrica] 150 mg capsule See Rx Instructions .ROUTE .COMPLEX Rx Instructions: Take 1 capsule by mouth in the morning and 2 capsules in the evening. ergocalciferol (vitamin D2) [Vitamin D2] 1,250 mcg (50,000 unit) capsule 1,250 mcg PO Q7D Rx Instructions: on triamterene-hydrochlorothiazid 37.5-25 mg tablet 1 tab PO DAILY PRN (Reason: bp) Discharge Orders: Discharge ED (Routine); Ordered 06/14/24 Ordered By: Ratna García Referrals: Carmelina Dailey APN [Primary Care Provider] - Patient Instructions: Abdominal Pain (ED) Activity Restrictions/Additional Instructions: As we discussed, avoid spicy, acidic, salty foods is much as possible. I have placed a case management referral to get you set up with GI/general surgery for further evaluation for possible need for an endoscopy. We will trial you on 2 different medications to see if this helps with discomfort. You may return to the emergency department at anytime for worsening or severe pain, or any other concerns you may have. I hope you begin to feel better soon. Coding Level of Care Code ED Blood Bank Specialist for Tere Contreras
--- NOTE | 2024-06-14 13:17 | CTR_ITS ---
PROCEDURE INFORMATION: Exam: CT Abdomen And Pelvis With Contrast Exam date and time: 06/14/2024 2:27 PM Age: 43 years old Clinical indication: Abdominal pain; Localized; Left upper quadrant (luq); Prior surgery; Surgery date: 6+ months; Surgery type: D&c x 4, tubal, gb; Patient HX: Luq pain/ epigastric pain x 2 months worse over the last 24/48 hours; Additional info: Epigastric, luq pain TECHNIQUE: Imaging protocol: Computed tomography of the abdomen and pelvis with contrast. Radiation optimization: All CT scans at this facility use at least one of these dose optimization techniques: automated exposure control; mA and/or kV adjustment per patient size (includes targeted exams where dose is matched to clinical indication); or iterative reconstruction. Contrast material: OMNI 350; Contrast volume: 100 ml; Contrast route: INTRAVENOUS (IV); COMPARISON: CT abdomen pelvis wo con [id number] 09/18/2022 10:42 AM RADIATION DOSE METRICS: Total DLP (mGy-cm): 725.37 FINDINGS: Liver: Normal. No mass. Gallbladder and biliary ducts: Cholecystectomy. Pancreas: Normal. No ductal dilation. Spleen: Normal. No splenomegaly. Adrenal glands: Normal. No mass. Kidneys and ureters: Normal. No hydronephrosis. Stomach and bowel: Unremarkable. No obstruction. No mucosal thickening. Appendix: No evidence of appendicitis. Intraperitoneal space: Unremarkable. No free air. No significant fluid collection. Vasculature: Unremarkable. No abdominal aortic aneurysm. Lymph nodes: Unremarkable. No enlarged lymph nodes. Urinary bladder: Unremarkable as visualized. Reproductive: Mildly enlarged and lobular leiomyomatous uterus. Bones/joints: Unremarkable. No acute fracture. Soft tissues: Unremarkable. CT/CT abdomen pelvis w con* [id number] IMPRESSION: No acute findings.
[2024-06-14 13:19] LABS: Bilirubin Urine Negative (Negative); Blood Urine Negative (Negative); Glucose Urine UA Negative (Normal); Ketones Urine Negative (Negative); Leukocyte Esterase Urine Negative (Negative); Nitrate Urine Negative (Negative); Protein Urine Negative (Negative); Specific Gravity, Urine 1.016 (1.005-1.030); Urine Appearance Cloudy (CLEAR); Urine Color Yellow (Yellow); Urobilinogen Urine 0.2 mg/dL (Negative)
[2024-06-14 13:21] LABS: Add Urine Microscopic? YES; Bacteria Urine EXCEEDS /hpf; Hyaline Casts Urine 2.46 /lpf; RBC Urine 0-2 /hpf (0-2); Squamous Epithelial Cell Urine 0-5 /hpf (0-5); WBC Urine 0-5 /hpf (0-5)
[2024-06-14 13:23] LABS: Add Urine Culture? No
[2024-06-14 13:26] LABS: Basophils # 0.1 10^3/uL (0.0-0.1); Basophils % 1.3 %; Eosinophils # 0.1 10^3/uL (0.0-0.8); Eosinophils % 1.4 %; Hematocrit 41.7 % (36-47); Lymphocytes # 2.9 10^3/uL (0.8-4.8); Lymphocytes % 34.9 %; Mean Corpuscular HGB Conc 31.2 g/dL (30-55); Mean Corpuscular Hemoglobin 27.4 pg (27-33); Mean Platelet Volume 9.7 fL (7.4-10.4); Monocytes # 0.5 10^3/uL (0.2-0.9); Monocytes % 6.3 %; Neutrophils # 4.63 10^3/uL (1.8-7.7); Neutrophils % 55.9 %; Nucleated Red Blood Cells % 0 %; Platelet Count 300 10^3/cmm (157-399); Red Blood Count 4.74 10^6/uL (3.85-5.65); Red Cell Distribution Width 13.2 % (12.1-15.1); White Blood Count 8.29 10^3/uL (3.29-11.43)
[2024-06-14] MEDS: lidocaine 2% viscous 15 ML, aluminum-mag hydrox-simethicon 30 ML, sucralfate oral liq 1 GM PO (13:40)
[2024-06-14 13:41] LABS: HCG, Serum Qual Negative (Negative)
[2024-06-14 13:46] LABS: Alanine Aminotransferase 17 U/L (0-33); Albumin Level 4.6 g/dL (3.5-5.2); Alkaline Phosphatase 91 U/L (35-105); Anion Gap 14.8 (5-19); Aspartate Amino Transferase 19 U/L (0-32); Blood Urea Nitrogen 20 mg/dL (6-20); Calcium 9.6 mg/dL (8.5-10.5); Carbon Dioxide 29 mmol/L (22-29); Chloride 102 mmol/L (98-107); Creatinine Clr Calc Pharmacy 64.8735; Globulin 2.6 g/dL (1.3-4.6); Glomerular Filtration Rate 45.1 mL/min (90-130); Glucose 93 mg/dL (65-115); Lipase 92 U/L (13-60); Osmolality Calculated 296 mOsm/kg (285-295); Potassium 3.8 mmol/L (3.5-5.1); Sodium 142 mmol/L (136-145); Total Bilirubin 0.2 mg/dL (0.15-1.2); Total Protein 7.2 g/dL (6.6-8.7)
[2024-06-14] MEDS: iohexol 350 mg/mL 500 mL Btl (per mL) IV (14:28)
--- NOTE | 2024-06-16 10:58 | DCPLANNER ---
messaged gen surgery for er f/u
== END 2024-06-14 15:50 | disposition home or self-care (01) ==
PROVIDERS: Emergency Provider Physician Assistant; PCP Nurse Practitioner Family
DX: R10.13 Epigastric pain (principal)
CPT/HCPCS: 74177; 80053; 81001; 83690; 84703; 85025; 99285

== ENCOUNTER 2024-07-11 07:08 | Day surgery (SDC) | payer OTHER, SELFPAY ==
[2024-07-11 07:36] VITALS: BP 108/75; PULSE 87; RESP 18; TEMP 36.1; O2SAT 99
[2024-07-11 07:36] LABS: Glucose Point of Care 103 mg/dL (70-110)
[2024-07-11 07:37] VITALS: BMI 30.4
--- NOTE | 2024-07-11 07:37 | P.ANESASSM_ITS ---
Pre-Anesthetic Assessment Height/Weight: Height 1.7 m Operation Date: 07/11/24 08:00 Proposed Procedures p EGD [id number], R10.9(Not Applicable) - Jeffery Lui MD Familial anesthetic complications: PONV Was Beta Henry taken within 24 hours: N/A Was Clonidine taken within 24 hours: N/A Last intake: > 8 hrs Social No alcohol and No tobacco Exam alert, oriented x 3, clear to auscultation bilaterally and regular rate & rhythm Airway Mallampati: Class III Chronic Renal Insufficiency GI Gastroesophageal Reflux Disease Metabolic Diabetes Mellitus, Hyperlipidemia, Morbid Obesity and Thyroid Disease [facility] Rheumatoid Arthritis Anesthetic Plan ASA status: 3 Anesthesia: MAC Risk of > 500 ml blood loss (7ml/kg in children): No Medications/Allergies Home Medications Medication Instructions Recorded Confirmed Last Taken Type alprazolam 0.5 mg tablet (Xanax) 0.5 - 1 mg (1 - 2 x 0.5 mg) PO TID 07/20/20 07/11/24 07/11/24 Rx PRN anxiety #20 tabs ergocalciferol (vitamin D2) 1,250 1,250 mcg PO Q7D 09/18/22 07/07/24 07/10/24 History mcg (50,000 unit) capsule (Vitamin D2) triamterene 37.5 1 tab PO DAILY PRN swelling 03/18/23 07/11/24 07/15/23 History mg-hydrochlorothiazide 25 mg tablet bupropion HCl 300 mg 24 hr tablet, 300 mg PO DAILY 07/16/23 07/07/24 07/10/24 History extended release furosemide 20 mg tablet (Lasix) 20 mg PO DAILY PRN SWELLING 07/16/23 07/07/24 07/10/24 History tirzepatide 15 mg/0.5 mL 15 mg SUBCUT Q7D 04/19/24 07/07/24 06/27/24 History subcutaneous pen injector (Mounjaro) liothyronine 5 mcg tablet (Cytomel) 5 mcg PO DAILY #90 tabs 05/17/24 07/07/24 07/10/24 Rx hydroxychloroquine 200 mg tablet 200 mg PO BID #180 tabs 05/23/24 07/07/24 07/10/24 Rx leflunomide 20 mg tablet 20 mg PO DAILY #90 tabs 05/23/24 07/07/24 07/10/24 Rx sulfasalazine 500 mg tablet 1 g (2 x 500 mg) PO BID #120 tabs 05/23/24 07/07/24 07/10/24 Rx levothyroxine 50 mcg tablet 50 mcg PO QAM 06/14/24 07/07/24 07/11/24 History pantoprazole 40 mg tablet,delayed 40 mg PO BID 6 weeks #84 tabs 06/23/24 07/07/24 07/10/24 Rx release (Protonix) sucralfate 100 mg/mL oral 10 ml PO BID 8 weeks #1,120 mL 06/23/24 07/07/24 07/10/24 Rx suspension prednisone 10 mg tablet 10 mg PO PRN PRN joint pain 07/07/24 07/11/24 Unknown History pregabalin 150 mg capsule (Lyrica) See Rx Instructions .Route .COMPLEX 07/07/24 07/07/24 07/11/24 History Allergies Allergy/AdvReac Type Severity Reaction Status Date / Time citalopram [From Celexa] Allergy Intermediate swelling Verified 07/07/24 09:02 all over cephalexin Allergy Vomiting Verified 07/07/24 09:02 latex Allergy Rash Verified 07/07/24 09:02 tramadol Allergy Nausea Verified 07/07/24 09:02 [facility] Anesthesia Medical History Trochanteric bursitis of both hips Seronegative rheumatoid arthritis of both hands RF, CCP negative, NING were negative Anti-TPO antibodies present Diabetes mellitus, type II High risk medication use Inflammatory arthritis Depression Anxiety Joint pain Muscle spasms of both lower extremities Menstrual migraine Obesity Gastroesophageal reflux Polycystic ovarian syndrome Surgical History History of carpal tunnel release left 07/26/2021 S/P tubal ligation (10/02/20) Laparoscopic complete salpingectomy. Performed by Dr. Cartwright at [facility] in [place], [place]. Hx of dilation and curettage (07/23/20) Treatment of blighted ovum. Performed by Dr. Cartwright at [facility] in [place], [place] History of cholecystectomy (~03/1999) Laparoscopic. Performed at [facility] in [place], [place] Hx of dilation and curettage (03/24/19) Treatment of Missed . [place] Cart[place] [facility] [place]. History of dilation and curettage (11/26/16) Treatment of miscarriage. Per[place]. Cartwright [place] [facility] [place]. History of dilation and curettage (12/25/15) Treatment of missed . D&C with suction performed. [place]. Cartwright [place] [facility] [place]. Family History Mother Hypertension Grandmother Heart disease Maternal Diabetes Maternal Family/Other Breast cancer Maternal great aunt Diabetes Maternal great-grandmother Family/Other No problems noted. 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
--- NOTE | 2024-07-11 07:38 | W.PM.OPSUD ---
Surgery/Procedure H&P Update DATE OF PROCEDURE: July 11, 2024 DATE H&P PERFORMED: 07/03/23 H&P UPDATE INFORMATION: I have reviewed H&P completed within last 30 days, I have examined patient prior to procedure and No changes to prior documentation PLANNED PROCEDURE: Operation Date: 07/11/24 08:00 Proposed Procedures p EGD [id number], R10.9(Not Applicable) - Jeffery Lui MD
[2024-07-11 07:50] VITALS: BP 94/64; PULSE 81; RESP 20; TEMP 36.1; O2SAT 99
[2024-07-11 08:00] VITALS: BP 106/77; PULSE 84; RESP 20; O2SAT 100
--- NOTE | 2024-07-11 15:34 | ANE.PACU2 ---
Inpatient post-anesthesia follow up: Airway intact: Yes Vital signs: Temperature 97.0 F Pulse Rate 84 Respiratory Rate 20 Blood Pressure 106/77 Pulse Oximetry 100 Oxygen Delivery Me thod Room Air Oxygen Flow Rate Fraction of Inspir ed Oxygen Hydration adequate: Yes Nausea and vomiting: No Pain level: 1 Mental status: Baseline
== END 2024-07-11 08:20 | disposition home or self-care (01) ==
PROVIDERS: PCP Nurse Practitioner Family; Visit Provider Student in an Organized Health Care Education/Training Program
PROC: 0DJ08ZZ Inspection of Upper Intestinal Tract, Via Natural or Artificial Opening Endoscopic (ICD-10-PCS; principal; 2024-07-11 08:00)
DX: K29.50 Unspecified chronic gastritis without bleeding (principal); K44.9 Diaphragmatic hernia without obstruction or gangrene; K21.9 Gastro-esophageal reflux disease without esophagitis; E11.22 Type 2 diabetes mellitus with diabetic chronic kidney disease; N18.9 Chronic kidney disease, unspecified; E78.5 Hyperlipidemia, unspecified; E66.01 Morbid (severe) obesity due to excess calories; Z79.899 Other long term (current) drug therapy; E07.9 Disorder of thyroid, unspecified; Z79.890 Hormone replacement therapy; Z88.8 Allergy status to other drugs, medicaments and biological substances; Z91.040 Latex allergy status; Z88.1 Allergy status to other antibiotic agents; F32.A Depression, unspecified; F41.9 Anxiety disorder, unspecified; Z90.49 Acquired absence of other specified parts of digestive tract; M06.042 Rheumatoid arthritis without rheumatoid factor, left hand; M06.041 Rheumatoid arthritis without rheumatoid factor, right hand; Z68.30 Body mass index [BMI] 30.0-30.9, adult
CPT/HCPCS: 36416; 43239; 82962; 88305; J2704

== ENCOUNTER 2024-08-17 12:06 | Outpatient (CLI) | payer OTHER, SELFPAY ==
[2024-08-17 12:55] LABS: Estmated Average Glucose 100; Hemoglobin A1C 5.1 % (4.0-6.0)
[2024-08-17 13:03] LABS: Alanine Aminotransferase 12 U/L (0-33); Albumin Level 4.1 g/dL (3.5-5.2); Alkaline Phosphatase 79 U/L (35-105); Anion Gap 13.5 (5-19); Aspartate Amino Transferase 14 U/L (0-32); Blood Urea Nitrogen 19 mg/dL (6-20); Carbon Dioxide 26 mmol/L (22-29); Chloride 105 mmol/L (98-107); Chol HDL Ratio 4.43 mg/dL (0.0-4.40); Cholesterol 195 mg/dL (0-200); Free T4 Free Thyroxine 1.41 ng/dL (0.82-1.77); Glomerular Filtration Rate 41.4 mL/min (90-130); Glucose 104 mg/dL (65-115); HDL Cholesterol 44 mg/dL (60-100); LDL Cholesterol Calculated 87 mg/dL (50-129); LDL HDL Ratio 1.98 RATIO (0.00-3.22); Osmolality Calculated 295 mOsm/kg (285-295); Potassium 3.5 mmol/L (3.5-5.1); Sodium 141 mmol/L (136-145); Thyroid Stimulating Hormone 2.41 uIU/mL (0.27-4.20); Total Bilirubin 0.2 mg/dL (0.15-1.2); Total Protein 7.1 g/dL (6.6-8.7); Triglycerides 319 mg/dL (0-150)
[2024-08-17 13:03] LABS: Creatinine Urine, Random 231 mg/dL (28-217); Microalbum Creatinine Ratio Ur 4 mg/dL (0-20); Microalbumin Random Urine 1 ug/dL (0-20)
== END 2024-08-17 12:07 | disposition home or self-care (01) ==
LOC: LAB 12:07
PROVIDERS: Absent Provider Internal Medicine; PCP Nurse Practitioner Family; Visit Provider Internal Medicine Rheumatology
DX: E11.9 Type 2 diabetes mellitus without complications (principal); E78.2 Mixed hyperlipidemia; E06.3 Autoimmune thyroiditis; E87.6 Hypokalemia
CPT/HCPCS: 36415; 80053; 80061; 82044; 83036; 84439; 84443

== ENCOUNTER 2024-08-23 08:46 | Day surgery (SDC) | payer OTHER, SELFPAY ==
[2024-08-23 09:05] VITALS: BP 131/79; PULSE 113; RESP 16; TEMP 36.1; O2SAT 99
--- NOTE | 2024-08-23 09:13 | P.ANESASSM_ITS ---
Pre-Anesthetic Assessment Height/Weight: Height 1.7 m Weight 88.451 kg Temp Pulse Resp BP Pulse Ox O2 Del Method 97.0 F L 113 H 16 131/79 99 Room Air 08/23/24 09:05 08/23/24 09:05 08/23/24 09:05 08/23/24 09:05 08/23/24 09:05 08/23/24 09:05 Preop Diagnosis: stomach problems Operation Date: 08/23/24 10:00 Proposed Procedures p Colonoscopy [id number] R19.4(Not Applicable) - Jeffeyr Lui MD Familial anesthetic complications: none Was Beta Henry taken within 24 hours: N/A Was Clonidine taken within 24 hours: N/A Last intake: Intake Last Liquid Date 08/22/24 Last Liquid Time 21:00 Last Solid Date 08/21/24 Last Solid Time 20:00 Social No alcohol and No tobacco Exam alert, oriented x 3, clear to auscultation bilaterally and regular rate & rhythm Airway Submandibular: within normal limits Cervical ROM: within normal limits Mallampati: Class II Dentition: full History/ROS No significant history except as noted and No significant complaints Pulmonary None reported CV/HEM None reported Kidney Stones Stage 3 CKD Hepatic None reported GI None reported Metabolic Diabetes Mellitus and Thyroid Disease [facility] None reported Arthritis Neuropsych Anxiety, Depression and Neuropathy Neck issues with arm involvement Anesthetic Plan ASA status: 3 Anesthesia: MAC Risk of > 500 ml blood loss (7ml/kg in children): No Medications/Allergies Home Medications ?Medication ?Instructions ?Recorded ?Confirmed ?Last Taken ?Type alprazolam 0.5 mg tablet (Xanax) 0.5 - 1 mg (1 - 2 x 0 .5 mg) PO TID 07/20/20 08/18/24 08/23/24 Rx PRN anxiety #20 tabs ergocalciferol (vitamin D2) 1,250 1,250 mcg PO Q7D 12/0508/18/24 08/18/24 History mcg (50,000 unit) capsule (Vitamin D2) triamterene 37.5 1 tab PO DAILY PRN swelling 03/18/23 08/18/24 08/18/24 History mg-hydrochlorothiazide 25 mg tablet bupropion HCl 300 mg 24 hr tablet, 300 mg PO DAILY 07/0808/18/24 08/18/24 History extended release furosemide 20 mg tablet (Lasix) 20 mg PO PRN PRN SWELL ING 07/16/23 08/18/24 08/18/24 History tirzepatide 15 mg/0.5 mL 15 mg SUBCUT Q7D 04/19/2408/12/24 History subcutaneous pen injector (Mounjaro) hydroxychloroquine 200 mg tablet 200 mg PO BID #180 ta bs 05/23/24 08/18/24 08/18/24 Rx leflunomide 20 mg tablet 20 mg PO DAILY #90 tabs 03/0808/18/24 08/18/24 Rx sulfasalazine 500 mg tablet 1 g (2 x 500 mg) PO BID #1 20 tabs 05/23/24 08/18/24 08/18/24 Rx levothyroxine 50 mcg tablet 50 mcg PO QAM 06/14/2412/0708/23/24 History pantoprazole 40 mg tablet,delayed 40 mg PO BID 6 weeks #84 tabs 06/23/24 08/18/24 08/18/24 Rx release (Protonix) prednisone 10 mg tablet 10 mg PO PRN PRN joint pain 07/07/24 08/18/24 08/18/24 History pregabalin 150 mg capsule (Lyrica) 150 mg PO BID 07/0708/18/24 08/23/24 History liothyronine 5 mcg tablet (Cytomel) 7.5 mcg (1.5 x 5 m cg) PO DAILY 30 08/18/24 08/22/24 08/22/24 Rx days #90 tabs Allergies Allergy/AdvReac Type Severity Reaction Status Date / Time citalopram (From Celexa) Allergy Intermediate swelling Verified 08/18/24 10:47 all over cephalexin Allergy Vomiting Verified 08/18/24 10:47 latex Allergy Rash Verified 08/18/24 10:47 tramadol Allergy Nausea Verified 08/18/24 10:47 [facility] Anesthesia Medical History Trochanteric bursitis of both hips Seronegative rheumatoid arthritis of both hands RF, CCP negative, NING were negative Anti-TPO antibodies present Diabetes mellitus, type II High risk medication use Inflammatory arthritis Depression Anxiety Joint pain Muscle spasms of both lower extremities Menstrual migraine Obesity Gastroesophageal reflux Polycystic ovarian syndrome Surgical History History of carpal tunnel release left 07/26/2021 S/P tubal ligation (10/02/20) Laparoscopic complete salpingectomy. Performed by Dr. Cartwright at [facility] in [place], [place]. Hx of dilation and curettage (07/23/20) Treatment of blighted ovum. Performed by Dr. Cartwright at [facility] in [place], [place] History of cholecystectomy (~03/1999) Laparoscopic. Performed at [facility] in [place], [place] Hx of dilation and curettage (03/24/19) Treatment of Missed . Performed by Dr. Cartwright at [facility] in [place], [place]. History of dilation and curettage (11/26/16) Treatment of miscarriage. Performed by Dr. Cartwright at [facility] in [place], [place]. History of dilation and curettage (12/25/15) Treatment of missed . D&C with suction performed. Performed by Dr. Cartwright at [facility] in [place], [place]. Family History Mother Hypertension Grandmother Heart disease Maternal Diabetes Maternal Family/Other Breast cancer Maternal great aunt Diabetes Maternal great-grandmother Family/Other No problems noted. 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
[2024-08-23 09:16] LABS: OR HCG Qualitative Urine Negative (Negative)
[2024-08-23] MEDS: sodium chloride 0.9% 1,000 ML 30 ML IV (09:17)
[2024-08-23 09:18] LABS: Glucose Point of Care 113 mg/dL (70-110)
--- NOTE | 2024-08-23 09:44 | W.PM.OPSUD ---
Surgery/Procedure H&P Update DATE OF PROCEDURE: August 23, 2024 DATE H&P PERFORMED: 07/28/24 H&P UPDATE INFORMATION: I have reviewed H&P completed within last 30 days, I have examined patient prior to procedure and No changes to prior documentation CHANGES TO PREVIOUS DOCUMENTATION: Risks and benefits discussed PREOP DIAGNOSIS: stomach problems PLANNED PROCEDURE: Operation Date: 08/23/24 10:00 Proposed Procedures p Colonoscopy [id number] G0105 R19.4(Not Applicable) - Jeffery Lui MD
[2024-08-23 10:10] VITALS: BP 84/61; PULSE 81; RESP 18; TEMP 36.3; O2SAT 99
[2024-08-23 10:18] VITALS: BP 106/74; PULSE 87; RESP 18; TEMP 36.2; O2SAT 99
--- NOTE | 2024-08-23 10:40 | ANE.PACU2 ---
Inpatient post-anesthesia follow up: Airway intact: Yes Vital signs: Temperature 97.2 F Pulse Rate 87 Respiratory Rate 18 Blood Pressure 106/74 Pulse Oximetry 99 Oxygen Delivery Me thod Room Air Oxygen Flow Rate Fraction of Inspir ed Oxygen Hydration adequate: Yes Nausea and vomiting: No Pain level: 1 Mental status: Baseline
== END 2024-08-23 10:43 | disposition home or self-care (01) ==
PROVIDERS: Anesthesiology; PCP Nurse Practitioner Family; Visit Provider Student in an Organized Health Care Education/Training Program
PROC: 0DJD8ZZ Inspection of Lower Intestinal Tract, Via Natural or Artificial Opening Endoscopic (ICD-10-PCS; CPT 45378; principal; 2024-08-23 10:00)
DX: K59.00 Constipation, unspecified (principal); R10.9 Unspecified abdominal pain; E11.9 Type 2 diabetes mellitus without complications; K21.9 Gastro-esophageal reflux disease without esophagitis; Z88.8 Allergy status to other drugs, medicaments and biological substances; Z91.040 Latex allergy status; Z79.899 Other long term (current) drug therapy; Z79.890 Hormone replacement therapy; Z79.85 Long-term (current) use of injectable non-insulin antidiabetic drugs
CPT/HCPCS: 36416; 45378; 81025; 82962; J2704; J7030

== ENCOUNTER 2024-09-16 07:10 | Outpatient (CLI) | payer OTHER, SELFPAY ==
--- NOTE | 2024-09-16 07:15 | MR_ITS ---
WS: [id number] MR CERVICAL SPINE WO/W COMPARISON: 05/29/2023 HISTORY: M47.12 - Other spondylosis with myelopathy, cervical region TECHNIQUE: Sagittal T1, T2 and T2 inversion recovery; axial T2, T2 gradient and fiesta. Post gadolinium imaging with fat saturation technique. FINDINGS: Images somewhat limited due to susceptibility artifact from hardware. Straightening of the normal cervical lordosis. Postoperative changes ACDF C3-C6. This is new compared to previous. Small amount of chronic myelomalacia in the cervical cord at the C5 level. No abnormal gadolinium enhancement. Central canal stenosis has improved. C2-3: Mild facet arthropathy. Mild LEFT bony foraminal narrowing. C3-4: Mild facet arthropathy. Mild LEFT bony foraminal narrowing. Spinal canal is patent. C4-5: Postoperative changes ACDF. Mild bilateral bony foraminal narrowing. Mild facet arthropathy. Mild central canal stenosis. C5-6: ACDF. Mild central canal stenosis. Mild facet arthropathy. Moderate LEFT and mild RIGHT bony foraminal narrowing. C6-7: ACDF. Moderate RIGHT and mild LEFT bony foraminal narrowing. Spinal canal is patent. C7-T1: Slight anterolisthesis. Tiny shallow central protrusion. Mild LEFT foraminal narrowing. Spinal canal and RIGHT foramen are patent. Tiny protrusions in the upper thoracic spine. MR/MR cervical spine wo/w [id number] IMPRESSION: 1. Postoperative changes ACDF C3-C6 is new compared to previous. 2. Central canal stenosis has improved compared to previous with mild residual central canal narrowing at C4-C5 and C5-C6. 3. Chronic myelomalacia in the mid cervical cord at C5 is similar to previous. 4. No abnormal gadolinium enhancement. 5. Mild to moderate foraminal narrowing described above. 6. Shallow central protrusion C7-T1 is similar to previous.
== END 2024-09-16 07:11 | disposition home or self-care (01) ==
LOC: RAD 07:11
PROVIDERS: PCP Nurse Practitioner Family; Visit Provider Psychiatry & Neurology Neurology
DX: M47.12 Other spondylosis with myelopathy, cervical region (principal); Z98.890 Other specified postprocedural states; M48.02 Spinal stenosis, cervical region; M47.892 Other spondylosis, cervical region; M48.03 Spinal stenosis, cervicothoracic region
CPT/HCPCS: 72156

== ENCOUNTER → 2024-11-23 10:27 | Outpatient (BNVA) | payer OTHER, SELFPAY | PROVIDERS: PCP Nurse Practitioner Family; Visit Provider Internal Medicine | DX: N18.9 Chronic kidney disease, unspecified (principal); E66.3 Overweight; M62.81 Muscle weakness (generalized); G62.9 Polyneuropathy, unspecified; R53.83 Other fatigue; E06.3 Autoimmune thyroiditis; E78.2 Mixed hyperlipidemia; E11.9 Type 2 diabetes mellitus without complications | CPT/HCPCS: 36415; 80053; 80061; 82044; 83036; 84439; 84443; 84480 ==

== ENCOUNTER → 2025-01-24 18:51 | Outpatient (BNVA) | payer OTHER, SELFPAY | PROVIDERS: PCP Nurse Practitioner Family | DX: R52 Pain, unspecified (principal) | CPT/HCPCS: 73070 ==

== ENCOUNTER → 2025-03-20 12:44 | Outpatient (BNVA) | payer OTHER, SELFPAY | PROVIDERS: PCP Nurse Practitioner Family; Visit Provider Nurse Practitioner Family | DX: R30.0 Dysuria (principal); Z11.3 Encounter for screening for infections with a predominantly sexual mode of transmission | CPT/HCPCS: 81003; 87491; 87591; 87661 ==